=== PATIENT | female | born 1945 | race African-American/Black ===

== ENCOUNTER 2022-02-22 10:33 | Outpatient (CLI) | payer MEDICARE | END 2022-02-22 10:34 | disposition critical access hospital (66) | LOC: EMS 10:33 | DX: R41.82 Altered mental status, unspecified (principal); R11.2 Nausea with vomiting, unspecified; R42 Dizziness and giddiness; R53.83 Other fatigue | CPT/HCPCS: A0425; A0427 ==

== ENCOUNTER 2022-02-22 10:52 | Inpatient (IN) | payer MEDICARE ==
[2022-02-22] MEDS ORDERED: SODIUM CHLORIDE 0.9% 1,000 ML IV STA (11:07)
--- NOTE | 2022-02-22 12:11 | XRAY Report ---
PROCEDURE: Ribs Bilat w/Chest 4 View INDICATIONS: fall/extensive contusion, low sats TECHNIQUE: 4 views of the bilateral ribs were acquired, along with a single view chest. COMPARISON: None. FINDINGS: SUPPORT DEVICES: Left cardiac device is seen. LUNGS/PLEURA: Prominence of the interstitial markings with blunting of the costophrenic sulci. MEDIASTINUM: Enlargement of the cardiac silhouette, compatible cardiomegaly. Extensive mediastinal ca lcifications, which may reflect granulomatous change. BONES/SOFT TISSUES: No acute abnormality. Specifically, no acute, displaced rib fracture is appreciat ed. IMPRESSION: 1.Cardiomegaly with suggested pulmonary edema. 2.Extensive mediastinal calcifications, which may reflect granulomatous change. Reviewed by: Chris Rodriguez MD on 02/22/2022 12:10 PM PDT Approved by: Chris Rodriguez MD on 02/22/2022 12:10 PM PDT Station ID: [id number]
[2022-02-22 12:28] LABS: ABG HCO3 23.1 mmol/L (22.0-26.0); ABG PCO2 41 mmHg (34-45); ABG PH 7.37 (7.35-7.45); ABG PO2 88 mmHg (80-100); ABG TCO2 24.3 MMOL/L (21.0-29.0)
[2022-02-22 12:29] LABS: ABG OXYGEN SATURATION 96 % (94-98); ALLEN TEST POSITIVE
[2022-02-22 13:12] LABS: MUDS CUTOFF CONCENTRATIONS CUTOFF CONC BELOW:
[2022-02-22 13:13] LABS: BASOPHILS % (AUTO) 0.6 %; EOSINOPHILS # (AUTO) 0.1 10^3/uL (0.0-0.7); EOSINOPHILS % (AUTO) 0.7 %; HCT - HEMATOCRIT 27.7 % (37.0-47.0); HGB - HEMOGLOBIN 8.4 g/dL (12.0-16.0); LYMPHOCYTES # (AUTO) 1.3 10^3/uL (1.5-3.5); LYMPHOCYTES % (AUTO) 18.3 %; MEAN CORPUSCULAR HEMOGLOBIN 26.3 pg (27.0-31.0); MEAN CORPUSCULAR HGB CONC 30.3 g/dL (32.0-36.0); MEAN CORPUSCULAR VOLUME 86.8 fL (81.0-99.0); MEAN PLATELET VOLUME 10.6 fL (7.9-10.8); MONOCYTES # (AUTO) 0.6 10^3/uL (0.0-1.0); MONOCYTES % (AUTO) 7.7 %; NEUTROPHILS # (AUTO) 5.2 10^3/uL (1.5-6.6); NEUTROPHILS % (AUTO) 71.9 %; NRBC ABSOLUTE COUNT (AUTO) 0.03 x10^3/uL; NUCLEATED RED BLOOD CELLS AUTO 0.4 /100WBC; PLT - PLATELET COUNT 323 10^3/uL (130-450); RED BLOOD COUNT 3.19 10^6/uL (4.20-5.40); RED CELL DISTRIBUTION WIDTH 19.3 % (12.0-15.0); WHITE BLOOD COUNT 7.2 x10^3/uL (4.8-10.8)
[2022-02-22 13:25] LABS: BILIRUBIN,URINE NEGATIVE (NEGATIVE); GLUCOSE, URINE (UA) NEGATIVE (NEGATIVE); KETONES,URINE (UA) NEGATIVE (NEGATIVE); LEUKOCYTE ESTERASE, URINE TRACE (NEGATIVE); NITRITE,URINE NEGATIVE (NEGATIVE); OCCULT BLOOD,URINE NEGATIVE (NEGATIVE); PH,URINE 5.5 PH (5.0-7.5); PROTEIN,URINE 30 mg/dL (NEGATIVE); UROBILINOGEN,URINE 2 E.U./dL (NORMAL)
[2022-02-22 13:28] LABS: B. PARAPERTUSSIS- RESP PCR PAN NOT DETECTED; B. PERTUSSIS- RESP PCR PANEL NOT DETECTED; C. PNEUMONIAE- RESP PCR PANEL NOT DETECTED; CORONAVIRUS 229E-RESP PCR NOT DETECTED; CORONAVIRUS HKU1-RESP PCR NOT DETECTED; CORONAVIRUS NL63-RESP PCR NOT DETECTED; CORONAVIRUS OC43-RESP PCR NOT DETECTED; HUMAN METAPNEUMOVIRUS NOT DETECTED; INFLUENZA A- RESP PCR PANEL NOT DETECTED; INFLUENZA B - RESP PCR PANEL NOT DETECTED; M. PNEUMONIAE- RESP PCR PANEL NOT DETECTED; PARAINFLUENZA VIRUS 1 NOT DETECTED; PARAINFLUENZA VIRUS 2 NOT DETECTED; PARAINFLUENZA VIRUS 3 NOT DETECTED; PARAINFLUENZA VIRUS 4 NOT DETECTED; RHINOVIRUS/ENTEROVIRUS NOT DETECTED; RSV- RESP PCR PANEL NOT DETECTED; SARS-CoV-2 -RESP PCR PANEL NOT DETECTED
[2022-02-22 13:31] LABS: CLARITY,URINE CLEAR (CLEAR)
[2022-02-22 13:32] LABS: ALBUMIN 3.3 g/dL (3.2-5.5); ALBUMIN/GLOBULIN RATIO 0.9 (1.0-2.2); BILIRUBIN,TOTAL 2.3 mg/dL (0.2-1.0); CALCIUM 8.9 mg/dL (8.5-10.3); CREATININE 1.2 mg/dL (0.4-1.0); POTASSIUM 3.9 mmol/L (3.5-5.0); TOTAL PROTEIN 6.8 g/dL (6.7-8.2)
[2022-02-22 13:35] LABS: INR 1.1 (0.8-1.2); PT - PROTHROMBIN TIME 12.7 secs (9.9-12.6)
[2022-02-22] MEDS ORDERED: CLINDAMYCIN 900 MG/50 ML 50 ML IV ONE (13:35)
[2022-02-22 13:38] LABS: BACTERIA,URINE Many /HPF (None Seen); RBC,URINE 0-5 /HPF (0-5); SQUAMOUS EPITHELIAL CELL,UR RARE Squamous (<= Few)
[2022-02-22 13:39] LABS: AMPHETAMINE SCREEN,URINE NEGATIVE (NEGATIVE); BARBITURATE SCREEN,UR NEGATIVE (NEGATIVE); BENZODIAZEPINES SCREEN, URINE NEGATIVE (NEGATIVE); COCAINE SCREEN URINE NEGATIVE (NEGATIVE); METHADONE SCREEN, URINE NEGATIVE (NEGATIVE); METHAMPHETAMINES SCREEN, URINE NEGATIVE (NEGATIVE); OPIATE SCREEN, URINE NEGATIVE (NEGATIVE); OXYCODONE SCREEN, URINE NEGATIVE (NEGATIVE); PROPOXYPHENE SCREEN, URINE NEGATIVE (NEGATIVE); THC CANNABINOID SCREEN, URINE NEGATIVE (NEGATIVE); TRICYCLIC ANTIDEPRESSANT,URINE NEGATIVE (NEGATIVE)
[2022-02-22] MEDS ORDERED: FUROSEMIDE 40 MG/4 ML VIAL IVP STA (13:43)
--- NOTE | 2022-02-22 14:04 | ED Physician Documentation ---
PD HPI DYSPNEA - Stated complaint Stated Complaint: NAUSEA - Chief complaint Chief Complaint: Resp - History obtained from History obtained from: Patient - Additional information Additional information: The patient comes to the emergency department with chief complaint of dyspnea and nausea this morning and increasing lower extremity swelling for the last week. The patient's daughter states that this morning, the patient seems to be short of breath than usual and then became nauseated and vomited. She had no complaints of chest pain or abdominal pain. She has a history of CHF and obesity and is normally on supplemental oxygen at 2 L per nasal cannula [id number]. The daughter has been noticing that the patient's lower extremities, especially the right leg, seem to be more edematous than usual. The patient always has more swelling on the the right than the left. No fevers or chills. No cough. When the medics arrived, they found the patient's oxygen saturation to be in the low to mid 80s and they increased her oxygen from 2 L to 4. She has been satting in the low to mid 90s since. The patient denies current nausea and states she feels a little better in that regard, but is still short of breath. She reports feeling slightly anxious. There have been no recent medication changes. The patient is takes digoxin for her CHF but no diuretics. She is on several antihypertensives. No other complaints at this time. Review of Systems Ten Systems: 10 systems reviewed and negative Constitutional: reports: Reviewed and negative Eyes: reports: Reviewed and negative Ears: reports: Reviewed and negative Nose: reports: Reviewed and negative Throat: reports: Reviewed and negative Cardiac: reports: Reviewed and negative Respiratory: reports: Dyspnea GI: reports: Nausea, Vomiting : reports: Reviewed and negative Skin: reports: Reviewed and negative Musculoskeletal: reports: Reviewed and negative Neurologic: reports: Reviewed and negative Psychiatric: reports: Reviewed and negative Endocrine: reports: Reviewed and negative Immunocompromised: reports: Reviewed and negative PD PAST MEDICAL HISTORY - Past Medical History Past Medical History: Yes Cardiovascular: Congestive heart failure, Atrial fibrillation Respiratory: Asthma Endocrine/Autoimmune: Type 2 diabetes, HyPOthyroidism HEENT: None - Past Surgical History Past Surgical History: Yes Cardiovascular: Pacemaker - Present Medications Home Medications: Ambulatory Orders Medication Instructions Recorded Confirmed Aspirin [Winkler Aspirin] 02/22/22 Digoxin [Lanoxin] 125 mcg PO DAILY 02/22/22 Dulaglutide [Trulicity] 0.75 mg SUBQ Q7D 02/22/22 Hydralazine HCl 50 mg PO BID 02/22/22 Levothyroxine [Synthroid] 02/22/22 Lisinopril [Zestril] 02/22/22 Lovastatin 02/22/22 Pantoprazole [Protonix] 40 mg PO DAILY 02/22/22 diltiaZEM [Cardizem] 30 mg PO BID 02/22/22 - Allergies Allergies/Adverse Reactions: Allergies Allergy/AdvReac Type Severity Reaction Status Date / Time No Known Drug Allergies Allergy Verified 02/22/22 11:24 - Social History Does the pt smoke?: No Smoking Status: Never smoker PD ED PE NORMAL - Vitals Vital signs reviewed: Yes - General General: Alert and oriented X 3, No acute distress, Well developed/nourished - HEENT HEENT: Atraumatic, PERRL, EOMI, Moist mucous membranes - Neck Neck: Supple, no meningeal sign - Cardiac Cardiac: RRR, No murmur, Strong equal pulses - Respiratory Respiratory: Other (Mildly labored respirations. Mildly decreased air movement.) - Abdomen Abdomen: Soft, Non tender, Non distended - Derm Derm: Normal color, Warm and dry, No rash - Extremities Extremities: No deformity, Other (Moderate edema bilateral lower extremities, worse on right. Pitting.) - Neuro Neuro: Alert and oriented X 3 - Psych Psych: Normal mood, Normal affect Results - Vitals Vitals: Vital Signs - 24 hr 02/22/22 02/22/22 02/22/22 11:00 11:08 12:03 Temperature 36.9 C Heart Rate 79 90 98 Respiratory 12 17 Rate Blood Pressure 189/89 H 218/95 H O2 Saturation 88 L 100 100 02/22/22 02/22/22 02/22/22 12:14 14:07 14:30 Temperature Heart Rate 89 89 Respiratory 19 18 Rate Blood Pressure 195/94 H 209/93 H 208/108 H O2 Saturation 100 98 02/22/22 02/22/22 02/22/22 15:00 15:30 15:54 Temperature Heart Rate 89 89 Respiratory 18 15 Rate Blood Pressure 224/122 H O2 Saturation 97 99 86 L 02/22/22 16:00 Temperature Heart Rate 89 Respiratory 23 Rate Blood Pressure 191/100 H O2 Saturation 97 Oxygen O2 Source Nasal cannula Oxygen Flow Rate 4 - EKG (time done) 1057 Rate: Rate (enter#) (89) Rhythm: NSR Rupert: Normal Intervals: Normal MA QRS: Normal Ischemia: Normal ST segments Compare to prior EKG: Old EKG unavailable Computer interpretation: Disagree with computer (Distinct P waves visualized in the V1. Low voltage P waves also visualized in lead I. MD interpretation normal sinus rhythm, not junctional rhythm) - Labs Labs: Laboratory Tests 02/22/22 02/22/22 02/22/22 11:48 12:15 12:22 WBC RBC Hgb Hct MCV MCH MCHC RDW Plt Count MPV Neut # (Auto) Lymph # (Auto) Bent # (Auto) Eos # (Auto) Baso # (Auto) Absolute Nucleated RBC Nucleated RBC % PT INR Bld Gas Analysis Time 1225 Sample Site RIGHT RADIAL ABG pH 7.37 ABG pCO2 41 ABG pO2 88 ABG HCO3 23.1 ABG Total CO2 24.3 ABG O2 Saturation 96 ABG Base Excess -2.0 Néstor Test POSITIVE Room Air YES Sodium Potassium Chloride Carbon Dioxide Anion Gap BUN Creatinine Estimated GFR (MDRD) Glucose Lactic Acid 1.2 Calcium Total Bilirubin AST ALT Alkaline Phosphatase Troponin I High Sens B-Natriuretic Peptide Total Protein Albumin Globulin Albumin/Globulin Ratio Lipase Urine Color Urine Clarity Urine pH Ur Specific [place] Urine Protein Urine Glucose (UA) Urine Ketones Urine Occult Blood Urine Nitrite Urine Bilirubin Urine Urobilinogen Ur Leukocyte Esterase Urine RBC Urine WBC Ur Squamous Epith Cells Urine Bacteria Ur Microscopic Review Urine Culture Comments Nasal Adenovirus (PCR) NOT DETECTED Nasal B. parapertussis DNA (PCR) NOT DETECTED Nasal Coronavir 229E PCR NOT DETECTED Nasal Coronavir HKU1 PCR NOT DETECTED Nasal Coronavir NL63 PCR NOT DETECTED Nasal Coronavir OC43 PCR NOT DETECTED Nasal Enterovir/Rhinovir PCR NOT DETECTED Nasal Influenza B PCR NOT DETECTED Nasal Influenza A PCR NOT DETECTED Nasal Parainfluen 1 PCR NOT DETECTED Nasal Parainfluen 2 PCR NOT DETECTED Nasal Parainfluen 3 PCR NOT DETECTED Nasal Parainfluen 4 PCR NOT DETECTED Nasal RSV (PCR) NOT DETECTED Nasal B.pertussis DNA PCR NOT DETECTED Nasal C.pneumoniae (PCR) NOT DETECTED Benito Human Metapneumo PCR NOT DETECTED Nasal M.pneumoniae (PCR) NOT DETECTED Nasal SARS-CoV-2 (PCR) NOT DETECTED Last Dose Date Last Dose Time Digoxin Urine Opiates Screen Ur Oxycodone Screen Urine Methadone Screen Ur Propoxyphene Screen Ur Barbiturates Screen Ur Tricyclics Screen Ur Phencyclidine Scrn Ur Amphetamine Screen U Methamphetamines Scrn U Benzodiazepines Scrn Urine Cocaine Screen U Cannabinoids Screen 02/22/22 02/22/22 02/22/22 12:51 12:51 12:51 WBC 7.2 RBC 3.19 L Hgb 8.4 L Hct 27.7 L MCV 86.8 MCH 26.3 L MCHC 30.3 L RDW 19.3 H Plt Count 323 MPV 10.6 Neut # (Auto) 5.2 Lymph # (Auto) 1.3 L Bent # (Auto) 0.6 Eos # (Auto) 0.1 Baso # (Auto) 0.0 Absolute Nucleated RBC 0.03 Nucleated RBC % 0.4 PT INR Bld Gas Analysis Time Sample Site ABG pH ABG pCO2 ABG pO2 ABG HCO3 ABG Total CO2 ABG O2 Saturation ABG Base Excess Néstor Test Room Air Sodium 139 Potassium 3.9 Chloride 105 Carbon Dioxide 24 Anion Gap 10.0 BUN 26 H Creatinine 1.2 H Estimated GFR (MDRD) 53 L Glucose 180 H Lactic Acid Calcium 8.9 Total Bilirubin 2.3 H AST 15 ALT 14 Alkaline Phosphatase 119 Troponin I High Sens 22.0 H* B-Natriuretic Peptide Total Protein 6.8 Albumin 3.3 Globulin 3.5 Albumin/Globulin Ratio 0.9 L Lipase 53 H Urine Color Urine Clarity Urine pH Ur Specific [place] Urine Protein Urine Glucose (UA) Urine Ketones Urine Occult Blood Urine Nitrite Urine Bilirubin Urine Urobilinogen Ur Leukocyte Esterase Urine RBC Urine WBC Ur Squamous Epith Cells Urine Bacteria Ur Microscopic Review Urine Culture Comments Nasal Adenovirus (PCR) Nasal B. parapertussis DNA (PCR) Nasal Coronavir 229E PCR Nasal Coronavir HKU1 PCR Nasal Coronavir NL63 PCR Nasal Coronavir OC43 PCR Nasal Enterovir/Rhinovir PCR Nasal Influenza B PCR Nasal Influenza A PCR Nasal Parainfluen 1 PCR Nasal Parainfluen 2 PCR Nasal Parainfluen 3 PCR Nasal Parainfluen 4 PCR Nasal RSV (PCR) Nasal B.pertussis DNA PCR Nasal C.pneumoniae (PCR) Benito Human Metapneumo PCR Nasal M.pneumoniae (PCR) Nasal SARS-CoV-2 (PCR) Last Dose Date Last Dose Time Digoxin Urine Opiates Screen Ur Oxycodone Screen Urine Methadone Screen Ur Propoxyphene Screen Ur Barbiturates Screen Ur Tricyclics Screen Ur Phencyclidine Scrn Ur Amphetamine Screen U Methamphetamines Scrn U Benzodiazepines Scrn Urine Cocaine Screen U Cannabinoids Screen 02/22/22 02/22/22 02/22/22 12:51 12:51 12:51 WBC RBC Hgb Hct MCV MCH MCHC RDW Plt Count MPV Neut # (Auto) Lymph # (Auto) Bent # (Auto) Eos # (Auto) Baso # (Auto) Absolute Nucleated RBC Nucleated RBC % PT 12.7 H INR 1.1 Bld Gas Analysis Time Sample Site ABG pH ABG pCO2 ABG pO2 ABG HCO3 ABG Total CO2 ABG O2 Saturation ABG Base Excess Néstor Test Room Air Sodium Potassium Chloride Carbon Dioxide Anion Gap BUN Creatinine Estimated GFR (MDRD) Glucose Lactic Acid Calcium Total Bilirubin AST ALT Alkaline Phosphatase Troponin I High Sens B-Natriuretic Peptide 1376 H Total Protein Albumin Globulin Albumin/Globulin Ratio Lipase Urine Color Urine Clarity Urine pH Ur Specific [place] Urine Protein Urine Glucose (UA) Urine Ketones Urine Occult Blood Urine Nitrite Urine Bilirubin Urine Urobilinogen Ur Leukocyte Esterase Urine RBC Urine WBC Ur Squamous Epith Cells Urine Bacteria Ur Microscopic Review Urine Culture Comments Nasal Adenovirus (PCR) Nasal B. parapertussis DNA (PCR) Nasal Coronavir 229E PCR Nasal Coronavir HKU1 PCR Nasal Coronavir NL63 PCR Nasal Coronavir OC43 PCR Nasal Enterovir/Rhinovir PCR Nasal Influenza B PCR Nasal Influenza A PCR Nasal Parainfluen 1 PCR Nasal Parainfluen 2 PCR Nasal Parainfluen 3 PCR Nasal Parainfluen 4 PCR Nasal RSV (PCR) Nasal B.pertussis DNA PCR Nasal C.pneumoniae (PCR) Benito Human Metapneumo PCR Nasal M.pneumoniae (PCR) Nasal SARS-CoV-2 (PCR) Last Dose Date UNKNOWN Last Dose Time UNKNOWN Digoxin 0.9 Urine Opiates Screen Ur Oxycodone Screen Urine Methadone Screen Ur Propoxyphene Screen Ur Barbiturates Screen Ur Tricyclics Screen Ur Phencyclidine Scrn Ur Amphetamine Screen U Methamphetamines Scrn U Benzodiazepines Scrn Urine Cocaine Screen U Cannabinoids Screen 02/22/22 13:06 WBC RBC Hgb Hct MCV MCH MCHC RDW Plt Count MPV Neut # (Auto) Lymph # (Auto) Bent # (Auto) Eos # (Auto) Baso # (Auto) Absolute Nucleated RBC Nucleated RBC % PT INR Bld Gas Analysis Time Sample Site ABG pH ABG pCO2 ABG pO2 ABG HCO3 ABG Total CO2 ABG O2 Saturation ABG Base Excess Néstor Test Room Air Sodium Potassium Chloride Carbon Dioxide Anion Gap BUN Creatinine Estimated GFR (MDRD) Glucose Lactic Acid Calcium Total Bilirubin AST ALT Alkaline Phosphatase Troponin I High Sens B-Natriuretic Peptide Total Protein Albumin Globulin Albumin/Globulin Ratio Lipase Urine Color YELLOW Urine Clarity CLEAR Urine pH 5.5 Ur Specific [place] >=1.030 H Urine Protein 30 H Urine Glucose (UA) NEGATIVE Urine Ketones NEGATIVE Urine Occult Blood NEGATIVE Urine Nitrite NEGATIVE Urine Bilirubin NEGATIVE Urine Urobilinogen 2 H Ur Leukocyte Esterase TRACE H Urine RBC 0-5 Urine WBC 6-10 H Ur Squamous Epith Cells RARE Squamous Urine Bacteria Many H Ur Microscopic Review INDICATED Urine Culture Comments INDICATED Nasal Adenovirus (PCR) Nasal B. parapertussis DNA (PCR) Nasal Coronavir 229E PCR Nasal Coronavir HKU1 PCR Nasal Coronavir NL63 PCR Nasal Coronavir OC43 PCR Nasal Enterovir/Rhinovir PCR Nasal Influenza B PCR Nasal Influenza A PCR Nasal Parainfluen 1 PCR Nasal Parainfluen 2 PCR Nasal Parainfluen 3 PCR Nasal Parainfluen 4 PCR Nasal RSV (PCR) Nasal B.pertussis DNA PCR Nasal C.pneumoniae (PCR) Benito Human Metapneumo PCR Nasal M.pneumoniae (PCR) Nasal SARS-CoV-2 (PCR) Last Dose Date Last Dose Time Digoxin Urine Opiates Screen NEGATIVE Ur Oxycodone Screen NEGATIVE Urine Methadone Screen NEGATIVE Ur Propoxyphene Screen NEGATIVE Ur Barbiturates Screen NEGATIVE Ur Tricyclics Screen NEGATIVE Ur Phencyclidine Scrn NEGATIVE Ur Amphetamine Screen NEGATIVE U Methamphetamines Scrn NEGATIVE U Benzodiazepines Scrn NEGATIVE Urine Cocaine Screen NEGATIVE U Cannabinoids Screen NEGATIVE - Rads (name of study) Chest x-ray Radiology: Final report received, EMP read indepedently, See rad report (CHF) PD MEDICAL DECISION MAKING - ED course Complexity details: reviewed results, re-evaluated patient, considered differential, d/w patient ED course: The patient was worked up with labs, which showed an elevated BNP at 1300 with a minimally elevated troponin of 22. Her chest x-ray showed CHF. The patient was given 40 mg of Lasix IV. She was continued on 4 L of oxygen nasal cannula. She had put out approximately a 500 cc of urine after the Lasix and I did recheck her O2 saturation on just 2 L and it was found to be 86% with a good waveform. Spoke with Dr. Marino, who agreed to admit the patient to her service for CHF exacerbation. Departure - Departure Disposition: [facility] DC/Xfer Clinical Impression: Acute exacerbation of CHF (congestive heart failure) Qualifiers: Heart failure type: unspecified Qualified Code(s): I50.9 - Heart failure, unspecified Condition: Serious
[2022-02-22] MEDS ORDERED: ASPIRIN 325 MG TABLET PO STA (15:15)
[2022-02-22] MEDS ORDERED: LEVOTHYROXINE 125 MCG TABLET PO STA (15:15)
[2022-02-22] MEDS ORDERED: DIGOXIN 125 MCG TABLET PO STA (15:15)
[2022-02-22] MEDS ORDERED: lisinopriL 5 MG TABLET PO STA (15:18)
[2022-02-22] MEDS ORDERED: hydrALAZINE 25 MG TABLET PO STA (15:19)
[2022-02-22] MEDS ORDERED: LORazepam 2 MG/ML VIAL IVP STA (15:19)
[2022-02-22] MEDS ORDERED: diltiaZEM CD 120 MG CAPSULE PO STA (15:19)
[2022-02-22 15:32] LABS: DIGOXIN 0.9 ng/mL
[2022-02-22] MEDS ORDERED: ONDANSETRON 4 MG/2 ML VIAL IVP PRN (16:08)
[2022-02-22] MEDS ORDERED: oxyCODONE 5 MG TABLET PO PRN (16:08)
[2022-02-22] MEDS ORDERED: IBUPROFEN 400 MG TABLET PO PRN (16:08)
[2022-02-22] MEDS ORDERED: ONDANSETRON ODT 4 MG TABLET TL PRN (16:08)
--- NOTE | 2022-02-22 16:12 | HISTORY & PHYSICAL EXAMINATION ---
Chief Complaint - Chief Complaint Chief Complaint: leg weakness and shortness of breath History of Present Illness - Admitted From Admitted From:: home - History Obtained From Records Reviewed: [facility] History obtained from: Dr. russo Exam Limitations: none - History of Present Illness HPI Comment/Other: The patient was brought in by EMS after family called due to concerns regarding lethargy and sleepiness. She had fallen Tuesday but did not hit her head. She had some bruising on her chest and her back. She is gotten sleepier, not wanting to eat, and today she was so lethargic she did not want to get up out of bed. She was complaining of dizziness. She is on chronic oxygen at home at 2 L/min. Ambulance was called and found her room air sats to be 89%. She was placed on her oxygen and was 96%. But when she got to the emergency room she was on 4 L nasal cannula. She was also actively vomiting yellow bilious fluid. Blood pressure was 189/89. Room air sat was 88%. Respirations 12. Heart rate 79. Temperature 36.9.In the emergency room she was treated with Lasix, hydralazine, lisinopril 40 mg p.o., and given some of her home meds which included lisinopril, diltiazem and digoxin. The emergency room provider felt that the patient was in congestive heart failure and she was given 40 mg of Lasix. Continued on 4 L of oxygen. She put out 500 cc of urine. With that they checked her on 2 L of oxygen and found her to be 86%. As such they put her back up to 4 L. I was asked to admit the patient for congestive heart failure. After she left the emergency room and came to the floor the patient was frankly obtunded, unresponsive. She had received a half a milligram of Ativan in the ER for "a little bit of anxiety". I had to put the patient immediately on BiPAP, and give her an inch of Nitropaste, and 10 mg of hydralazine for systolic of 210. I then spent 30 minutes in direct patient critical care at the bedside Have reached out to her mirror machine feeder. She used to live in the [facility] and only moved to [facility] in July 2021. In June 2021 she was hospitalized at [facility]. Her mirror machine feeder is Dr. Alicea at phone number [phone]. Her daughter states that she was hospitalized there because she had water on her lungs that needed to be removed with Lasix. Since moving here, the daughter states that the patient was probably compliant with medications but she cannot be sure. Mom is been going downhill for about a year or two. Her 2 years ago and she couldn't live alone so a daughter moved in with her to look out for her. About 1 year ago, one of her daughters had to start helping her taking a bath because her legs were too weak to lift up and bathe herself. Other than needing help to get bathe, mom was able to dress herself and feed herself. She has not been driving for several years. She relies on her family to take her places. Since moving to [place] from [place], she has become basically homebound. It is too difficult to get her up and down stairs so she never leaves the house/apartment. As far as the daughter knows, mom is taking her medications as instructed.There may been some dietary indiscretion. The history of why she fell is vague. History - Past Medical History Cardiovascular: reports: Congestive heart failure, Atrial fibrillation (with a pacer) Respiratory: reports: Asthma Neuro: reports: None Endocrine/Autoimmune: reports: Type 2 diabetes, HyPOthyroidism [employer]AT[employer]ER: reports: Other () : reports: None HEENT: reports: None Psych: reports: Anxiety Musculoskeletal: reports: Osteoarthritis MRSA Hx?: No - Past Surgical History Cardiovascular: reports: Pacemaker - Family & Social History Family History Comment/Other: Mom at 85 of unknown cancer. Dad of old age. Again not clear what he of, possibly cancer. 3 brothers and sisters. She also had 3 or 4/2 siblings. There is cancer in both sides of that side of the family but unknown type of cancer. There is also high blood pressure. De mentia. 4 children. High blood pressure and some of them. One son is developing early dementia. 1 son about a week ago. Not clear what he of and it may have been metastatic melanoma. Living arrangement: At home Living Situation: With family Social History Notes: She was born in [place]. Ended up living in the [place] area for many decades after getting . She raised 4 children there. Her 2 years ago. She did used to smoke, but stopped smoking over 40 years ago. She has no history of alcohol abuse. Rarely drinks. She has no history of recreational substance abuse. Currently living with one of her daughters. The daughter was living in [place] with the rest of the family. However that daughter came here to [facility] to be closer to one of her children who was in the [place]. She brought her mother, the patient, with her. They have been living here since July 2021. They have seen the primary care provider, Dr. Andrade, only once. - Substance History Use: Uses substance without health or social issues: NONE Abuse: Recurrent use of substance despite neg consequences: NONE Dependence: Experiences withdrawal or developed tolerances: NONE - POLST Patient has POLST: No POLST Status: Full Code Meds/Allgy - Home Medications Home Medications: Ambulatory Orders Medication Instructions Recorded Confirmed Aspirin [Page Aspirin] 81 mg PO DAILY 02/22/22 02/22/22 Digoxin [Lanoxin] 125 mcg PO DAILY 02/22/22 02/22/22 Dulaglutide [Trulicity] 0.75 mg SUBQ WE 02/22/22 02/22/22 Hydralazine HCl 50 mg PO BID 02/22/22 02/22/22 Levothyroxine [Synthroid] 125 mcg PO QDAC 02/22/22 02/22/22 Lisinopril [Zestril] 40 mg PO BID 02/22/22 02/22/22 Lovastatin 40 mg PO QPM 02/22/22 02/22/22 Metoprolol Succinate [Toprol Xl] 50 mg PO BID 02/22/22 02/22/22 Pantoprazole [Protonix] 40 mg PO DAILY 02/22/22 02/22/22 diltiaZEM [Cardizem] 60 mg PO DAILY 02/22/22 02/22/22 - Allergies Allergies/Adverse Reactions: Allergies Allergy/AdvReac Type Severity Reaction Status Date / Time No Known Drug Allergies Allergy Verified 02/22/22 11:24 Review of Systems - Other Findings Other Findings: This patient is completely obtunded. She can open her eyes to loud voice but is unresponsive. Sluggish, extremely lethargic. Prior Level of Functionality: Able to dress herself, feed herself, but needs help with bathing. Occasionally uses a walker or a cane Exam - Vital Signs Reviewed Vital Signs: Yes Vital Signs: Vital Signs x48h Temp Pulse Resp BP Pulse Ox 02/22/22 16:00 89 23 191/100 H 97 02/22/22 15:54 86 L 02/22/22 15:30 89 15 99 02/22/22 15:00 89 18 224/122 H 97 02/22/22 14:30 89 18 208/108 H 98 02/22/22 14:07 89 19 209/93 H 100 02/22/22 12:14 195/94 H 02/22/22 12:03 98 17 218/95 H 100 02/22/22 11:08 90 100 02/22/22 11:00 36.9 C 79 12 189/89 H 88 L - Physical Exam General Appearance: positive: Other (Morbidly obese at 112 kg, 5 foot 6 inches tall, elderly black female with protuberant eyes even when closed, responsive to sternal rub and to her daughter yelling her name.) Eyes Bilateral: positive: PERRL, EOMI ENT: positive: Dry mucous membranes Neck: positive: No JVD. negative: Stiff neck Respiratory: positive: No respiratory distress, Other (Shallow, unlabored breathing, spells of apnea). negative: Wheezes, Rales, Rhonchi Cardiovascular: positive: Regular rate & rhythm, Systolic murmur, Other (The entire front of her chest across both breast are deeply bruised. Left upper chest wall has a 4 and half centimeter square area subcutaneous that I believe is her pacer.). negative: Gallop/S4 Abdomen: positive: Non-tender, No organomegaly, Nml bowel sounds, No distention. negative: Guarding, Rebound Skin: positive: Warm, Dry Extremities: positive: Full ROM, Pedal edema Neurologic/Psychiatric: positive: CN's nml (2-12) (Spontaneous grimacing of pain with sternal rub. Can hear her daughter call her name and opens eyes. Moves her hands to grasp mine and move them away.), Motor nml, Disoriented to person, Disoriented to place, Disoriented to time Conclusion/Plan - Problem List (1) Acute respiratory failure with hypoxia and hypercapnia Conclusion/Plan: That is my initial assumption in this patient. I am placing her in ICU, starting her on BiPAP, and getting a blood gas in the next 15 minutes. Respirat ory therapy did not want to get a blood gas before putting her on BiPAP. She may have obesity hypoventilation syndrome, obstructive sleep apnea. Daughter says that she does have a sleep mask at home. After I check blood gas, I will adjust her vent settings. Some of her respiratory failure may also be due to hypoxia from congestive heart failure due to severely elevated blood pressures. I will be treating that problem as well. I have rechecked her mirror machine feeder. I have also asked that we get records from [facility]. I like to review her records from June 2021 (2) Acute exacerbation of CHF (congestive heart failure) Conclusion/Plan: Unknown ejection fraction status. I have reached out to her mirror machine feeder. Product Safety Specialist says he was can go to the office read up on her records and then get them to me. I expect a phone call the next 15 or 20 minutes. Qualifiers: Heart failure type: unspecified Qualified Code(s): I50.9 - Heart failure, unspecified (3) Hypertensive urgency Conclusion/Plan: Could this patient have PRES. But the only manifestation is that of altered mental status. Daughter did not describe changes in vision. She is not having seizures. She was not complaining of headache. I am giving her hydralazine, already received 40 mg of Lasix. In the ER creatinine was 1.2. May use labetalol prn or nipride drip next. if she doesn't respond in next 30 minutes. (4) CHELITA (obstructive sleep apnea) Conclusion/Plan: And all of the discussion with the emergency room doctor, and the patient's daughter who provided the history, there is no history of obstructive sleep apnea. That only came up when I explained to the daughter that I was going to be transferring her mom to the ICU and putting a mask on her face. The daughter then asked "is out of CPAP". When I asked her how she knew about that, she states that mom has that mask at home. Some if not most of her lethargy can be from hypercapnia and as such I will check her blood gas after BiPAP for 30 minutes. (5) Type 2 diabetes mellitus, without long-term current use of insulin Conclusion/Plan: This patient takes Trulicity for her diabetes. At this time that will be held. We will check A1c, start on sliding scale insulin n.p.o. status. Qualifiers: Diabetes mellitus complication status: without complication Qualified Code(s): E11.9 - Type 2 diabetes mellitus without complications (6) Contusion, chest wall Conclusion/Plan: Daughter reports that mom was reaching for some wipes on a top shelf in a closet. The fall was unwitnessed. She must of fallen forward onto the floor. But the face was uninvolved, wrist were uninvolved, it was all chest wall and along her back contusion. Although I think her encephalopathy is from hypercapnia, I am concerned about subdural bleeding. When she stabilized from a respiratory perspective she will need a CT of the head. Qualifiers: Encounter type: initial encounter (7) History of atrial flutter Conclusion/Plan: Her mirror machine feeder was able to finally call me back and tell me that he first met her in the preop setting where she was in a flutter in PACU for a knee surgery. 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 Her ejection fraction is normal. On his note from June 24, 2021 he only has her on diltiazem. He does not understand how she got started on digoxin and diltiazem and metoprolol. He says he did not take care of her for a hospitalization in June 2021. And when I tried to get records from [facility], they say that they do not have Ms. Tomlin there other than for blood draws. The patient is in a junctional rhythm. Pacer spikes have kicked in. But it is helpful to know that she had a normal ejection fraction. (8) Anemia Conclusion/Plan: The daughter states that mom is not known for having anemia. She cannot really remember this. We will do anemia work-up for her. She is not anemic enough to need blood transfusion at this time. Qualifiers: Anemia type: unspecified type Qualified Code(s): D64.9 - Anemia, unspecified - Lab Results Lab results reviewed: Yes Fish Bones: 02/22/22 12:51 02/22/22 12:51
[2022-02-22] MEDS: SODIUM CHLORIDE FLUSH 0.9% 10 ML SYRINGE IVP SCH (18:05)
[2022-02-22] MEDS ORDERED: hydrALAZINE INJ 20 MG/ML VIAL ONE (18:15)
[2022-02-22] MEDS ORDERED: hydrALAZINE INJ 20 MG/ML VIAL IVP ONE (18:24)
[2022-02-22] MEDS ORDERED: NITROGLYCERIN 2% PASTE TOP ONE (18:24)
--- NOTE | 2022-02-22 18:32 | PHARMACY PROGRESS NOTE ---
- Best Possible Medication History Admit Date and Time: 02/22/22 1608 Processed by: Pharmacy Medication History completed: Yes Patient Interview: Pt unable to participate Secondary Source(s): Written medication list, Other family member, Pharmacy r ecords, Insurance records As the person ultimately responsible for medication therapy, providers are able to order a medication from an existing home medication list in [facility] via the "Reconcile Routine" prior to Confirmation of that medication by support teacher. Such practice is discouraged except when the physician, in their clinical judgment, deems that a medical need exists for a medication without regard to previous use.
[2022-02-22 18:53] LABS: ABG BASE EXCESS -0.1 mmol/L (-2.0-3.0); ABG HCO3 25.5 mmol/L (22.0-26.0); ABG OXYGEN SATURATION 89 % (94-98); ABG PCO2 46 mmHg (34-45); ABG PH 7.36 (7.35-7.45); ABG PO2 61 mmHg (80-100); ABG TCO2 26.9 MMOL/L (21.0-29.0)
[2022-02-22 18:54] LABS: ALLEN TEST POSITIVE
[2022-02-22] MEDS ORDERED: INSULIN REGULAR HUMAN 300 UNIT/3 ML VIAL SUBQ SCH (19:00)
[2022-02-22 21:27] LABS: ABSOLUTE RETICS # AUTO 0.144 10^6/uL (0.020-0.110); RED BLOOD COUNT 3.29 10^6/uL (4.20-5.40); RETICULOCYTE COUNT % (AUTO) 4.38 % (0.5-2.3)
--- NOTE | 2022-02-22 21:34 | CT Report ---
PROCEDURE: HEAD WO INDICATIONS: fall 4/ now w lethargy, dec LOC TECHNIQUE: Noncontrast 4.5 mm thick angled axial sections acquired from the foramen magnum to the vertex. For r adiation dose reduction, the following was used: automated exposure control, adjustment of mA and/or kV according to patient size. COMPARISON: None. FINDINGS: Image quality: There is motion artifact slightly limiting evaluation. CSF spaces: There is mild cerebral volume loss with prominence of the ventricles and sulci. Basal ci sterns are patent. No extra-axial fluid collections. Brain: No intracranial hemorrhage, mass, or mass effect. Donato-white matter interface is preserved. T here are subcortical and periventricular white matter hypodensities consistent with mild chronic smal l vessel ischemic changes. Skull and face: Calvarium and visualized facial bones are intact, without suspicious lesions. Sinuses: Visualized sinuses and mastoids are clear. IMPRESSION: 11. No acute intracranial abnormality. 2. Mild chronic white matter small vessel ischemic changes and cerebral volume loss. Reviewed by: Arturo Maria MD on 02/22/2022 9:32 PM PDT Approved by: Arturo Maria MD on 02/22/2022 9:32 PM PDT Station ID: [id number]
[2022-02-22 21:57] LABS: % IRON SATURATION 10 % (20-50); IRON 39 ug/dL (28-170); TOTAL IRON BINDING CAPACITY 379 ug/dL (250-450); TRANSFERRIN 271 mg/dL (192-382)
[2022-02-23 05:07] LABS: ABG BASE EXCESS 0.4 mmol/L (-2.0-3.0); ABG HCO3 25.6 mmol/L (22.0-26.0); ABG OXYGEN SATURATION 94 % (94-98); ABG PCO2 44 mmHg (34-45); ABG PH 7.39 (7.35-7.45); ABG PO2 76 mmHg (80-100); ABG TCO2 26.9 MMOL/L (21.0-29.0); ALLEN TEST POSITIVE
[2022-02-23 05:08] LABS: ABG RESPIRATORY RATE 16 b/min
[2022-02-23 06:11] LABS: BASOPHILS % (AUTO) 0.6 %; EOSINOPHILS # (AUTO) 0.1 10^3/uL (0.0-0.7); EOSINOPHILS % (AUTO) 1.1 %; HCT - HEMATOCRIT 26.9 % (37.0-47.0); HGB - HEMOGLOBIN 8.2 g/dL (12.0-16.0); LYMPHOCYTES # (AUTO) 0.9 10^3/uL (1.5-3.5); LYMPHOCYTES % (AUTO) 12.1 %; MEAN CORPUSCULAR HEMOGLOBIN 26.6 pg (27.0-31.0); MEAN CORPUSCULAR HGB CONC 30.5 g/dL (32.0-36.0); MEAN CORPUSCULAR VOLUME 87.3 fL (81.0-99.0); MEAN PLATELET VOLUME 9.9 fL (7.9-10.8); MONOCYTES # (AUTO) 0.5 10^3/uL (0.0-1.0); MONOCYTES % (AUTO) 7.3 %; NEUTROPHILS # (AUTO) 5.5 10^3/uL (1.5-6.6); NEUTROPHILS % (AUTO) 78.3 %; NRBC ABSOLUTE COUNT (AUTO) 0.03 x10^3/uL; NUCLEATED RED BLOOD CELLS AUTO 0.4 /100WBC; PLT - PLATELET COUNT 312 10^3/uL (130-450); RED BLOOD COUNT 3.08 10^6/uL (4.20-5.40); RED CELL DISTRIBUTION WIDTH 19.1 % (12.0-15.0); WHITE BLOOD COUNT 7.1 x10^3/uL (4.8-10.8)
[2022-02-23 06:21] LABS: CALCIUM 8.8 mg/dL (8.5-10.3); CREATININE 1.1 mg/dL (0.4-1.0); POTASSIUM 3.7 mmol/L (3.5-5.0)
[2022-02-23] MEDS: SODIUM CHLORIDE FLUSH 0.9% 10 ML SYRINGE IVP SCH ×4 (06:33→18:30)
[2022-02-23] MEDS ORDERED: INSULIN REGULAR HUMAN 300 UNIT/3 ML VIAL SUBQ SCH (07:00)
--- NOTE | 2022-02-23 08:45 | PROVIDER PROGRESS NOTE ---
Assessment/Plan - Problem List (1) Acute exacerbation of CHF (congestive heart failure) Qualifiers: Heart failure type: unspecified Qualified Code(s): I50.9 - Heart failure, unspecified Assessment/Plan: Patient is currently on the BiPAP. Lasix 40 mg IV twice daily ordered. Metoprolol tartrate 5 mg IV every 6 hours scheduled. BNP was 1146. Will monitor daily. Strict I's and O's. Cannot obtain a 2D echocardiogram because is currently unavailable at our facility Initial troponin was 22 with repeat troponin of 32. When patient is able to tolerate p.o., will resume patient's oral medications. These include: Digoxin 125 mcg p.o. daily Metoprolol succinate 50 mg p.o. twice daily Lisinopril 40 mg p.o. twice daily (2) Acute respiratory failure with hypoxia and hypercapnia Assessment/Plan: Multifactorial secondary to CHF exacerbation and obstructive sleep apnea. Patient is currently on a BiPAP. Will wean as tolerated. CHF exacerbation being treated as outlined above. (3) Hypertension Assessment/Plan: At time of admission patient's systolic blood pressure was 219. This has since improved. Systolic blood pressure currently fluctuates between 120s and 150s. On metoprolol 5 mg IV every 6 hours scheduled. On hydralazine 10 mg IV every 4 hours as needed for systolic blood pressure greater than 160. On Lasix 40 mg IV twice daily. When patient is able to tolerate oral medications will resume lisinopril, diltiazem and metoprolol succinate. (4) Contusion, chest wall Qualifiers: Encounter type: initial encounter Assessment/Plan: It was an unwitnessed fall. She has extensive bruising across her chest/breast area as a result. CT head done 02/22/2022 showed no acute intracranial abnormality. Chest and rib x-ray showed cardiomegaly with suggested pulmonary edema. Extensive mediastinal calcifications which may reflect granulomatous change No rib fractures were noticed. Ultrasound of the left breast ordered due to firmness on palpation. (5) History of atrial flutter Assessment/Plan: Currently rate controlled. Currently on metoprolol tartrate 5 mg every 6 hours scheduled. When patient is able to tolerate oral medications will resume her home medications. This include metoprolol succinate 50 mg p.o. twice daily, diltiazem 60 mg p.o. daily and digoxin 125 mcg p.o. daily. On a baby aspirin daily. (6) CHELITA (obstructive sleep apnea) Assessment/Plan: Patient uses a CPAP at night. Currently on the BiPAP. (7) Type 2 diabetes mellitus, without long-term current use of insulin Qualifiers: Diabetes mellitus complication status: without complication Qualified Code(s): E11.9 - Type 2 diabetes mellitus without complications Assessment/Plan: Accu-Cheks before every meal at bedtime. Sliding scale insulin. We will check hemoglobin A1c in the morning. (8) Hematoma of left breast Assessment/Plan: Secondary to contusion following fall at home. It was an unwitnessed fall. Ultrasound of the breast done this morning showed a hematoma measuring 11.2 x 5.7 x 11 cm. Hemoglobin this morning was 8.2. Will repeat hemoglobin in the afternoon and address accordingly. Lovenox for DVT prophylaxis discontinued. (9) Anemia Qualifiers: Anemia type: unspecified type Qualified Code(s): D64.9 - Anemia, un specified Assessment/Plan: Globin was 8.2. Patient has a large left breast hematoma following fall at home. We will monitor H&H closely. (10) Hypothyroidism Assessment/Plan: On Synthroid 125 mcg p.o. daily AC (12) GERD (gastroesophageal reflux disease) Assessment/Plan: Protonix 40 mg p.o. daily AC. - Current Meds Current Meds: Current Medications Generic Name Dose Route Start Last Admin Trade Name Freq PRN Reason Stop Dose Admin Sodium Chloride 10 ml 02/22/22 17:00 02/23/22 06:33 Sodium Chloride Flush 0.9% 10 Ml Syringe IVP 10 ml 0100,0900,1700 [facility] Administration - Lab Result Fish Bone Diagrams: 02/23/22 05:55 02/23/22 05:55 - Additional Planning My Orders: My Active Orders 02/23/22 09:00 Aspirin Chewable [[facility] [place] Aspirin] 81 mg PO DAILY Digoxin [Lanoxin] 125 mcg PO DAILY FUROSEMIDE INJ 40mg VIAL [LASIX INJ 40 mg VIAL] 40 mg IVP BIDDIURETIC Hydralazine HCl [Hydralazine HCl] 50 mg PO BID Lisinopril [Zestril] 40 mg PO BID Metoprolol Succinate [Toprol Xl] 50 mg PO BID Pantoprazole [Protonix] 40 mg PO DAILY diltiaZEM [Cardizem] 60 mg PO DAILY 02/23/22 21:00 Lovastatin [Lovastatin] 40 mg PO QPM 02/24/22 05:00 BMP - BASIC METABOLIC PANEL [CHEM] DAILYLAB BNP - B-NATRIURETIC PEPTIDE [IAI] DAILYLAB CBC - COMP BLD CT W/AUTO DIFF [HEME] DAILYLAB 02/24/22 07:00 Levothyroxine [Synthroid] 125 mcg PO QDAC 02/25/22 05:00 BMP - BASIC METABOLIC PANEL [CHEM] DAILYLAB BNP - B-NATRIURETIC PEPTIDE [IAI] DAILYLAB CBC - COMP BLD CT W/AUTO DIFF [HEME] DAILYLAB 02/26/22 05:00 BMP - BASIC METABOLIC PANEL [CHEM] DAILYLAB BNP - B-NATRIURETIC PEPTIDE [IAI] DAILYLAB CBC - COMP BLD CT W/AUTO DIFF [HEME] DAILYLAB 02/27/22 05:00 BMP - BASIC METABOLIC PANEL [CHEM] DAILYLAB BNP - B-NATRIURETIC PEPTIDE [IAI] DAILYLAB CBC - COMP BLD CT W/AUTO DIFF [HEME] DAILYLAB 02/28/22 05:00 BMP - BASIC METABOLIC PANEL [CHEM] DAILYLAB BNP - B-NATRIURETIC PEPTIDE [IAI] DAILYLAB CBC - COMP BLD CT W/AUTO DIFF [HEME] DAILYLAB Subjective - Subjective Patient Reports: Other (Patient was resting comfortably in bed at time of exam. However she is very lethargic. Barely responds to questions asked by mumbling. Attempt to wean off BiPAP today resulted in oxygen saturation in the 70s. BiPAP was replaced. Denies any significant complaints) Objective Vital Signs: Vital Signs - 24 hr 02/22/22 02/22/22 02/22/22 11:00 11:08 12:03 Temperature 36.9 C Heart Rate 79 90 98 Heart Rate [ Apical] Heart Rate [ Monitoring electrodes] Respiratory 12 17 Rate Blood Pressure 189/89 H 218/95 H Blood Pressure [Left Brachial artery] O2 Saturation 88 L 100 100 02/22/22 02/22/22 02/22/22 12:14 14:07 14:30 Temperature Heart Rate 89 89 Heart Rate [ Apical] Heart Rate [ Monitoring electrodes] Respiratory 19 18 Rate Blood Pressure 195/94 H 209/93 H 208/108 H Blood Pressure [Left Brachial artery] O2 Saturation 100 98 02/22/22 02/22/22 02/22/22 15:00 15:30 15:54 Temperature Heart Rate 89 89 Heart Rate [ Apical] Heart Rate [ Monitoring electrodes] Respiratory 18 15 Rate Blood Pressure 224/122 H Blood Pressure [Left Brachial artery] O2 Saturation 97 99 86 L 02/22/22 02/22/22 02/22/22 16:00 16:30 17:00 Temperature Heart Rate 89 69 69 Heart Rate [ Apical] Heart Rate [ Monitoring electrodes] Respiratory 23 22 24 Rate Blood Pressure 191/100 H 168/96 H 163/90 H Blood Pressure [Left Brachial artery] O2 Saturation 97 98 99 02/22/22 02/22/22 02/22/22 18:05 18:10 18:15 Temperature 36.3 C L Heart Rate Heart Rate [ 76 77 69 Apical] Heart Rate [ Monitoring electrodes] Respiratory 11 L 8 L 16 Rate Blood Pressure 219/110 H Blood Pressure 219/110 H 225/101 H 172/99 H [Left Brachial artery] O2 Saturation 93 96 100 02/22/22 02/22/22 02/22/22 18:27 18:30 18:45 Temperature Heart Rate 69 Heart Rate [ Apical] Heart Rate [ 74 70 Monitoring electrodes] Respiratory 12 11 L Rate Blood Pressure Blood Pressure 162/87 H 152/77 H [Left Brachial artery] O2 Saturation 96 93 02/22/22 02/22/22 02/22/22 19:00 19:24 21:06 Temperature Heart Rate 69 70 Heart Rate [ Apical] Heart Rate [ 72 Monitoring electrodes] Respiratory 16 Rate Blood Pressure Blood Pressure 143/76 H [Left Brachial artery] O2 Saturation 96 02/22/22 02/22/22 02/22/22 21:15 22:00 23:00 Temperature 36.6 C Heart Rate Heart Rate [ Apical] Heart Rate [ 72 69 69 Monitoring electrodes] Respiratory 15 9 L 9 L Rate Blood Pressure Blood Pressure 157/99 H 132/78 H 123/76 [Left Brachial artery] O2 Saturation 93 92 93 02/23/22 02/23/22 02/23/22 00:00 00:09 01:00 Temperature Heart Rate 69 Heart Rate [ Apical] Heart Rate [ 69 69 Monitoring electrodes] Respiratory 8 L 9 L Rate Blood Pressure Blood Pressure 125/75 121/74 [Left Brachial artery] O2 Saturation 94 94 02/23/22 02/23/22 02/23/22 02:00 03:00 03:04 Temperature Heart Rate 69 Heart Rate [ Apical] Heart Rate [ 69 70 Monitoring electrodes] Respiratory 8 L 15 Rate Blood Pressure Blood Pressure 127/75 148/85 H [Left Brachial artery] O2 Saturation 90 L 86 L 02/23/22 02/23/22 02/23/22 04:00 04:57 05:00 Temperature Heart Rate 69 Heart Rate [ Apical] Heart Rate [ 69 69 Monitoring electrodes] Respiratory 9 L 10 L Rate Blood Pressure Blood Pressure 134/76 H 154/86 H [Left Brachial artery] O2 Saturation 100 100 02/23/22 02/23/22 02/23/22 06:00 07:24 08:00 Temperature Heart Rate 69 Heart Rate [ Apical] Heart Rate [ 69 69 Monitoring electrodes] Respiratory 9 L 20 Rate Blood Pressure Blood Pressure 150/82 H 166/96 H [Left Brachial artery] O2 Saturation 96 100 Oxygen O2 Source BIPAP Oxygen Flow Rate 4 I&O (Last 24 Hrs): Intake and Output Totals x24h 02/21/22 02/22/22 02/23/22 23:59 23:59 23:59 Intake Total 566.1 Output Total 1050 805 Balance -483.9 -805 General: Moderate distress (respiratory distress), Other (lethargic) HEENT: Atraumatic, PERRLA, EOMI Neck: Other (JVD noted) Neuro: Other (lethargic. Not oriented to time, place or reason) Cardiovascular: Regular rate, Other (irregular rhythm) Respiratory: Chest non-tender, Breath sounds nml Abdomen: Normal bowel sounds, Soft, No tenderness, No masses Extremities: Other (trace to +1 lower extremity edema) Comments/Notes: extensive bruising across breasts bilaterally - Results Results: Laboratory Results WBC 7.1 x10^3/uL (4.8-10.8) 02/23/22 05:55 RBC 3.08 10^6/uL (4.20-5.40) L 02/23/22 05:55 Hgb 8.2 g/dL (12.0-16.0) L 02/23/22 05:55 Hct 26.9 % (37.0-47.0) L 02/23/22 05:55 MCV 87.3 fL (81.0-99.0) 02/23/22 05:55 MCH 26.6 pg (27.0-31.0) L 02/23/22 05:55 MCHC 30.5 g/dL (32.0-36.0) L 02/23/22 05:55 RDW 19.1 % (12.0-15.0) H 02/23/22 05:55 Plt Count 312 10^3/uL (130-450) 02/23/22 05:55 MPV 9.9 fL (7.9-10.8) 02/23/22 05:55 Reticulocyte % (Auto) 4.38 % (0.5-2.3) H 02/22/22 21:18 Neut # (Auto) 5.5 10^3/uL (1.5-6.6) 02/23/22 05:55 Lymph # (Auto) 0.9 10^3/uL (1.5-3.5) L 02/23/22 05:55 Blaine # (Auto) 0.5 10^3/uL (0.0-1.0) 02/23/22 05:55 Eos # (Auto) 0.1 10^3/uL (0.0-0.7) 02/23/22 05:55 Baso # (Auto) 0.0 10^3/uL (0.0-0.1) 02/23/22 05:55 Absolute Nucleated RBC 0.03 x10^3/uL 02/23/22 05:55 Nucleated RBC % 0.4 /100WBC 02/23/22 05:55 Absolute Retic 0.144 10^6/uL (0.020-0.110) H 02/22/22 21:18 PT 12.7 secs (9.9-12.6) H 02/22/22 12:51 INR 1.1 (0.8-1.2) 02/22/22 12:51 Bld Gas Analysis Time 0505 02/23/22 04:55 Sample Site RIGHT RADIAL 02/23/22 04:55 ABG pH 7.39 (7.35-7.45) 02/23/22 04:55 ABG pCO2 44 mmHg (34-45) 02/23/22 04:55 ABG pO2 76 mmHg (80-100) L 02/23/22 04:55 ABG HCO3 25.6 mmol/L (22.0-26.0) 02/23/22 04:55 ABG Total CO2 26.9 MMOL/L (21.0-29.0) 02/23/22 04:55 ABG O2 Saturation 94 % (94-98) 02/23/22 04:55 ABG Base Excess 0.4 mmol/L (-2.0-3.0) 02/23/22 04:55 Néstor Test POSITIVE 02/23/22 04:55 Respiration Rate 16 b/min 02/23/22 04:55 Room Air YES 02/22/22 12:22 O2 Delivery Device BiPAP 02/23/22 04:55 FiO2 35.00 02/23/22 04:55 PEEP 12 cmH2O 02/23/22 04:55 EPAP 5 cmH2O 02/22/22 18:45 IPAP 5 cmH2O 02/23/22 04:55 Sodium 136 mmol/L (135-145) 02/23/22 05:55 Potassium 3.7 mmol/L (3.5-5.0) 02/23/22 05:55 Chloride 103 mmol/L (101-111) 02/23/22 05:55 Carbon Dioxide 26 mmol/L (21-32) 02/23/22 05:55 Anion Gap 7.0 (6-13) 02/23/22 05:55 BUN 23 mg/dL (6-20) H 02/23/22 05:55 Creatinine 1.1 mg/dL (0.4-1.0) H 02/23/22 05:55 Estimated GFR (MDRD) 58 (>89) L 02/23/22 05:55 Glucose 137 mg/dL (70-100) H 02/23/22 05:55 POC Whole Bld Glucose 127 mg/dL (70 - 100) H 02/23/22 08:09 Lactic Acid 1.2 mmol/L (0.5-2.2) 02/22/22 11:48 Calcium 8.8 mg/dL (8.5-10.3) 02/23/22 05:55 Iron 39 ug/dL (28-170) 02/22/22 21:18 TIBC 379 ug/dL (250-450) 02/22/22 21:18 % Saturation 10 % (20-50) L 02/22/22 21:18 Transferrin 271 mg/dL (192-382) 02/22/22 21:18 Ferritin 27.0 ng/mL (11.0-306.8) 02/22/22 21:18 Total Bilirubin 2.3 mg/dL (0.2-1.0) H 02/22/22 12:51 AST 15 IU/L (10-42) 02/22/22 12:51 ALT 14 IU/L (10-60) 02/22/22 12:51 Alkaline Phosphatase 119 IU/L (42-121) 02/22/22 12:51 Ammonia 15.1 umol/L (7-35) 02/23/22 05:55 Lactate Dehydrogenase 227 IU/L (91-225) H 02/22/22 21:18 Troponin I High Sens 22.0 ng/L (2.3-14.8) H* 02/22/22 12:51 B-Natriuretic Peptide 1146 pg/mL (5-100) H 02/23/22 05:55 Total Protein 6.8 g/dL (6.7-8.2) 02/22/22 12:51 Albumin 3.3 g/dL (3.2-5.5) 02/22/22 12:51 Globulin 3.5 g/dL (2.1-4.2) 02/22/22 12:51 Albumin/Globulin Ratio 0.9 (1.0-2.2) L 02/22/22 12:51 Lipase 53 U/L (22-51) H 02/22/22 12:51 Vitamin B12 426 pg/mL (180-914) 02/22/22 21:18 TSH 1.23 uIU/mL (0.34-5.60) 02/23/22 05:55 Urine Color YELLOW 02/22/22 13:06 Urine Clarity CLEAR (CLEAR) 02/22/22 13:06 Urine pH 5.5 PH (5.0-7.5) 02/22/22 13:06 Ur Specific Wiggins >=1.030 (1.002-1.030) H 02/22/22 13:06 Urine Protein 30 mg/dL (NEGATIVE) H 02/22/22 13:06 Urine Glucose (UA) NEGATIVE mg/dL (NEGATIVE) 02/22/22 13:06 Urine Ketones NEGATIVE mg/dL (NEGATIVE) 02/22/22 13:06 Urine Occult Blood NEGATIVE (NEGATIVE) 02/22/22 13:06 Urine Nitrite NEGATIVE (NEGATIVE) 02/22/22 13:06 Urine Bilirubin NEGATIVE (NEGATIVE) 02/22/22 13:06 Urine Urobilinogen 2 E.U./dL (NORMAL) H 02/22/22 13:06 Ur Leukocyte Esterase TRACE (NEGATIVE) H 02/22/22 13:06 Urine RBC 0-5 /HPF (0-5) 02/22/22 13:06 Urine WBC 6-10 /HPF (0-5) H 02/22/22 13:06 Ur Squamous Epith Cells RARE Squamous (<= Few) 02/22/22 13:06 Urine Bacteria Many /HPF (None Seen) H 02/22/22 13:06 Ur Microscopic Review INDICATED 02/22/22 13:06 Urine Culture Comments INDICATED 02/22/22 13:06 Nasal Adenovirus (PCR) NOT DETECTED 02/22/22 12:15 Nasal B. parapertussis DNA (PCR) NOT DETECTED 02/22/22 12:15 Nasal Coronavir 229E PCR NOT DETECTED 02/22/22 12:15 Nasal Coronavir HKU1 PCR NOT DETECTED 02/22/22 12:15 Nasal Coronavir NL63 PCR NOT DETECTED 02/22/22 12:15 Nasal Coronavir OC43 PCR NOT DETECTED 02/22/22 12:15 Nasal Enterovir/Rhinovir PCR NOT DETECTED 02/22/22 12:15 Nasal Influenza B PCR NOT DETECTED 02/22/22 12:15 Nasal Influenza A PCR NOT DETECTED 02/22/22 12:15 Nasal Parainfluen 1 PCR NOT DETECTED 02/22/22 12:15 Nasal Parainfluen 2 PCR NOT DETECTED 02/22/22 12:15 Nasal Parainfluen 3 PCR NOT DETECTED 02/22/22 12:15 Nasal Parainfluen 4 PCR NOT DETECTED 02/22/22 12:15 Nasal RSV (PCR) NOT DETECTED 02/22/22 12:15 Nasal Screen MRSA (PCR) NEGATIVE (NEGATIVE) 02/22/22 21:15 Nasal B.pertussis DNA PCR NOT DETECTED 02/22/22 12:15 Nasal C.pneumoniae (PCR) NOT DETECTED 02/22/22 12:15 Benito Human Metapneumo PCR NOT DETECTED 02/22/22 12:15 Nasal M.pneumoniae (PCR) NOT DETECTED 02/22/22 12:15 Nasal SARS-CoV-2 (PCR) NOT DETECTED 02/22/22 12:15 Last Dose Date UNKNOWN 02/22/22 12:51 Last Dose Time UNKNOWN 02/22/22 12:51 Digoxin 0.9 ng/mL 02/22/22 12:51 Urine Opiates Screen NEGATIVE (NEGATIVE) 02/22/22 13:06 Ur Oxycodone Screen NEGATIVE (NEGATIVE) 02/22/22 13:06 Urine Methadone Screen NEGATIVE (NEGATIVE) 02/22/22 13:06 Ur Propoxyphene Screen NEGATIVE (NEGATIVE) 02/22/22 13:06 Ur Barbiturates Screen NEGATIVE (NEGATIVE) 02/22/22 13:06 Ur Tricyclics Screen NEGATIVE (NEGATIVE) 02/22/22 13:06 Ur Phencyclidine Scrn NEGATIVE (NEGATIVE) 02/22/22 13:06 Ur Amphetamine Screen NEGATIVE (NEGATIVE) 02/22/22 13:06 U Methamphetamines Scrn NEGATIVE (NEGATIVE) 02/22/22 13:06 U Benzodiazepines Scrn NEGATIVE (NEGATIVE) 02/22/22 13:06 Urine Cocaine Screen NEGATIVE (NEGATIVE) 02/22/22 13:06 U Cannabinoids Screen NEGATIVE (NEGATIVE) 02/22/22 13:06 ABX Reporting Has patient been on IV antibiotics over the past 48 hours?: No
[2022-02-23] MEDS: INSULIN REGULAR HUMAN 300 UNIT/3 ML VIAL SUBQ SCH ×4 (08:57→21:40)
[2022-02-23] MEDS ORDERED: ENOXAPARIN 40 MG/0.4 ML SYRINGE SUBQ SCH (09:00)
[2022-02-23] MEDS: FUROSEMIDE 40 MG/4 ML VIAL IVP SCH ×2 (09:24→14:16)
[2022-02-23] MEDS: SODIUM CHLORIDE FLUSH 0.9% 10 ML SYRINGE IVP PRN ×3 (09:25→14:23)
[2022-02-23 10:20] LABS: MAGNESIUM 1.9 mg/dL (1.7-2.8)
[2022-02-23] MEDS: DIGOXIN 125 MCG TABLET PO SCH (12:10)
[2022-02-23] MEDS: ASPIRIN CHEW 81 MG TABLET PO SCH (12:10)
[2022-02-23] MEDS: hydrALAZINE 25 MG TABLET PO SCH ×2 (12:11→21:24)
[2022-02-23] MEDS: PANTOPRAZOLE 40 MG TABLET PO SCH (12:11)
[2022-02-23] MEDS: lisinopriL 20 MG TABLET PO SCH ×2 (12:11→21:24)
[2022-02-23] MEDS: METOPROLOL SUCCINATE 50 MG TABLET PO SCH ×2 (12:11→21:25)
[2022-02-23] MEDS: METOPROLOL 5 MG/5 ML VIAL IVP SCH ×2 (12:18→18:24)
[2022-02-23] MEDS ORDERED: POTASSIUM CHLOR 10 MEQ/100 ML 10 MEQ/100 ML BAG IV SCH (13:00)
[2022-02-23 13:40] LABS: ESTIMATED AVERAGE GLUCOSE 177 mg/dL (70-100); HEMOGLOBIN A1c% 7.8 % (4.27-6.07)
[2022-02-23] MEDS: POTASSIUM CHLOR 10 MEQ/100 ML 10 MEQ/100 ML BAG IV SCH ×2 (15:28→19:09)
[2022-02-23 16:12] LABS: HCT - HEMATOCRIT 29.9 % (37.0-47.0); HGB - HEMOGLOBIN 9.2 g/dL (12.0-16.0); MEAN CORPUSCULAR HGB CONC 30.8 g/dL (32.0-36.0); MEAN CORPUSCULAR VOLUME 87.7 fL (81.0-99.0); MEAN PLATELET VOLUME 9.9 fL (7.9-10.8); RED BLOOD COUNT 3.41 10^6/uL (4.20-5.40); RED CELL DISTRIBUTION WIDTH 19.5 % (12.0-15.0)
[2022-02-23] MEDS: ACETAMINOPHEN 325 MG TABLET PO PRN (18:30)
[2022-02-23] MEDS: ATORVASTATIN 10 MG TABLET PO SCH (21:24)
[2022-02-24] MEDS: METOPROLOL 5 MG/5 ML VIAL IVP SCH ×2 (00:35→06:37)
[2022-02-24] MEDS: SODIUM CHLORIDE FLUSH 0.9% 10 ML SYRINGE IVP SCH ×3 (00:35→17:10)
[2022-02-24 04:40] LABS: BASOPHILS % (AUTO) 0.4 %; EOSINOPHILS # (AUTO) 0.1 10^3/uL (0.0-0.7); EOSINOPHILS % (AUTO) 1.6 %; HGB - HEMOGLOBIN 8.8 g/dL (12.0-16.0); LYMPHOCYTES # (AUTO) 1.5 10^3/uL (1.5-3.5); LYMPHOCYTES % (AUTO) 18.4 %; MEAN CORPUSCULAR HEMOGLOBIN 26.8 pg (27.0-31.0); MEAN CORPUSCULAR HGB CONC 30.3 g/dL (32.0-36.0); MEAN CORPUSCULAR VOLUME 88.4 fL (81.0-99.0); MEAN PLATELET VOLUME 10.1 fL (7.9-10.8); MONOCYTES # (AUTO) 0.5 10^3/uL (0.0-1.0); MONOCYTES % (AUTO) 6.8 %; NEUTROPHILS # (AUTO) 5.8 10^3/uL (1.5-6.6); NEUTROPHILS % (AUTO) 72.4 %; NRBC ABSOLUTE COUNT (AUTO) 0.04 x10^3/uL; NUCLEATED RED BLOOD CELLS AUTO 0.5 /100WBC; PLT - PLATELET COUNT 341 10^3/uL (130-450); RED BLOOD COUNT 3.28 10^6/uL (4.20-5.40); RED CELL DISTRIBUTION WIDTH 19.6 % (12.0-15.0)
[2022-02-24 04:49] LABS: CALCIUM 9.1 mg/dL (8.5-10.3); CREATININE 1.1 mg/dL (0.4-1.0)
[2022-02-24] MEDS: FUROSEMIDE 40 MG/4 ML VIAL IVP SCH ×2 (06:32→13:55)
[2022-02-24] MEDS: LEVOTHYROXINE 125 MCG TABLET PO SCH (06:33)
[2022-02-24] MEDS: PANTOPRAZOLE 40 MG TABLET PO SCH (06:33)
--- NOTE | 2022-02-24 07:34 | PROVIDER PROGRESS NOTE ---
Assessment/Plan - Problem List (1) Acute exacerbation of CHF (congestive heart failure) Qualifiers: Heart failure type: unspecified Qualified Code(s): I50.9 - Heart failure, unspecified Assessment/Plan: 02/24/22 Patient was more responsive/alert today. Another attempt to wean her off the BiPAP was done today. Currently on 10 L of oxygen year high flow nasal cannula with oxygen saturation in the high 90s. Continue Lasix 40 mg IV twice daily. BNP improved from 1146 down to 663. We will continue patient's medications as listed below. She is able to tolerate oral intake at this time. We will discontinue IV metoprolol. Chest x-ray done 02/24/22 morning showed cardiomegaly with prominent pulmonary vasculature and small bilateral pleural effusions most likely secondary to CHF. Next goal would be to see if patient can work with physical therapy on 02/25/22. 02/23/22 Patient is currently on the BiPAP. Lasix 40 mg IV twice daily ordered. Metoprolol tartrate 5 mg IV every 6 hours scheduled. BNP was 1146. Will monitor daily. Strict I's and O's. Cannot obtain a 2D echocardiogram because is currently unavailable at our facility Initial troponin was 22 with repeat troponin of 32. When patient is able to tolerate p.o., will resume patient's oral medications. These include: Digoxin 125 mcg p.o. daily Metoprolol succinate 50 mg p.o. twice daily Lisinopril 40 mg p.o. twice daily (2) Acute respiratory failure with hypoxia and hypercapnia Assessment/Plan: Multifactorial secondary to CHF exacerbation and obstructive sleep apnea. Patient is currently on a BiPAP. Will wean as tolerated. CHF exacerbation being treated as outlined above. (3) Hypertension Assessment/Plan: At time of admission patient's systolic blood pressure was 219. This has since improved. Systolic blood pressure currently fluctuates between 120s and 150s. On metoprolol 5 mg IV every 6 hours scheduled. On hydralazine 10 mg IV every 4 hours as needed for systolic blood pressure gre ater than 160. On Lasix 40 mg IV twice daily. When patient is able to tolerate oral medications will resume lisinopril, diltiazem and metoprolol succinate. (4) Contusion, chest wall Qualifiers: Encounter type: initial encounter Assessment/Plan: It was an unwitnessed fall. She has extensive bruising across her chest/breast area as a result. CT head done 02/22/2022 showed no acute intracranial abnormality. Chest and rib x-ray showed cardiomegaly with suggested pulmonary edema. Extensive mediastinal calcifications which may reflect granulomatous change No rib fractures were noticed. Ultrasound of the left breast ordered due to firmness on palpation. (5) History of atrial flutter Assessment/Plan: Currently rate controlled. Currently on metoprolol tartrate 5 mg every 6 hours scheduled. When patient is able to tolerate oral medications will resume her home medications. This include metoprolol succinate 50 mg p.o. twice daily, diltiazem 60 mg p.o. daily and digoxin 125 mcg p.o. daily. On a baby aspirin daily. (6) CHELITA (obstructive sleep apnea) Assessment/Plan: Patient uses a CPAP at night. Currently on the BiPAP. (7) Type 2 diabetes mellitus, without long-term current use of insulin Qualifiers: Diabetes mellitus complication status: without complication Qualified Code(s): E11.9 - Type 2 diabetes mellitus without complications Assessment/Plan: Accu-Cheks before every meal at bedtime. Sliding scale insulin. We will check hemoglobin A1c in the morning. (8) Hematoma of left breast Assessment/Plan: Secondary to contusion following fall at home. It was an unwitnessed fall. Ultrasound of the breast done 02/23/22 showed a hematoma measuring 11.2 x 5.7 x 11 cm. Hemoglobin this morning was 8.8. Will repeat hemoglobin in the afternoon and address accordingly. Lovenox for DVT prophylaxis discontinued. (9) Anemia Qualifiers: Anemia type: unspecified type Qualified Code(s): D64.9 - Anemia, unspecified Assessment/Plan: Hemoglobin was stable at 8.8. Patient has a large left breast hematoma foll owing fall at home. We will monitor H&H closely. (10) Hypothyroidism Assessment/Plan: On Synthroid 125 mcg p.o. daily AC (12) GERD (gastroesophageal reflux disease) Assessment/Plan: Protonix 40 mg p.o. daily AC. (4) Contusion, chest wall Qualifiers: Encounter type: initial encounter (7) Type 2 diabetes mellitus, without long-term current use of insulin Qualifiers: Diabetes mellitus complication status: without complication Qualified Code(s): E11.9 - Type 2 diabetes mellitus without complications (9) Anemia Qualifiers: Anemia type: unspecified type Qualified Code(s): D64.9 - Anemia, unspecified - Current Meds Current Meds: Current Medications Generic Name Dose Route Start Last Admin Trade Name Freq PRN Reason Stop Dose Admin Acetaminophen 650 mg 02/22/22 16:08 02/23/22 18:30 Acetaminophen 325 Mg Tablet PO 650 mg Q4HR PRN Administration Pain 1 to 4, or Fever Aspirin 81 mg 02/23/22 09:00 02/23/22 12:10 Aspirin Chew 81 Mg Tablet PO Not Given DAILY PANDA Atorvastatin Calcium 20 mg 02/23/22 21:00 02/23/22 21:24 Atorvastatin 10 Mg Tablet PO 20 mg QPM PANDA Administration Digoxin 125 mcg 02/23/22 09:00 02/23/22 12:10 Digoxin 125 Mcg Tablet PO Not Given DAILY PANDA Diltiazem HCl 60 mg 02/23/22 09:00 02/23/22 12:11 Diltiazem 60 Mg Tablet PO Not Given DAILY PANDA Furosemide 40 mg 02/23/22 09:00 02/24/22 06:32 Furosemide 40 Mg/4 Ml Vial IVP 40 mg BIDDIURETIC PANDA Administration Hydralazine HCl 50 mg 02/23/22 09:00 02/23/22 21:24 Hydralazine 25 Mg Tablet PO 50 mg BID PANDA Administration Insulin Human Regular 2 - 10 unit 02/23/22 08:00 02/23/22 21:40 Insulin Regular Human 300 Unit/3 Ml Vial SUBQ Not Given ACHS@0800,1200,1700,2100 [facility] Protocol Levothyroxine Sodium 125 mcg 02/24/22 07:00 02/24/22 06:33 Levothyroxine 125 Mcg Tablet PO 125 mcg QDAC PANDA Administration Lisinopril 40 mg 02/23/22 09:00 02/23/22 21:24 Lisinopril 20 Mg Tablet PO 40 mg BID PANDA Administration Metoprolol Succinate 50 mg 02/23/22 09:00 02/23/22 21:25 Metoprolol Succinate 50 Mg Tablet PO 50 mg BID PANDA Administration Metoprolol Tartrate 5 mg 02/23/22 12:00 02/24/22 06:37 Metoprolol 5 Mg/5 Ml Vial IVP 5 mg Q6HR PANDA Administration Pantoprazole Sodium 40 mg 02/23/22 09:00 02/24/22 06:33 Pantoprazole 40 Mg Tablet PO 40 mg QDAC PANDA Administration Sodium Chloride 10 ml 02/22/22 16:08 02/23/22 14:23 Sodium Chloride Flush 0.9% 10 Ml Syringe IVP 10 ml PRN PRN Administration NEEDED PER PROVIDER ORDERS Sodium Chloride 10 ml 02/22/22 17:00 02/24/22 00:35 Sodium Chloride Flush 0.9% 10 Ml Syringe IVP 10 ml 0100,0900,1700 PANDA Administration - Lab Result Fish Bone Diagrams: 02/24/22 04:10 02/24/22 04:10 - Additional Planning My Orders: My Active Orders 02/23/22 09:00 Aspirin Chewable [[facility] [place] Aspirin] 81 mg PO DAILY Digoxin [Lanoxin] 125 mcg PO DAILY FUROSEMIDE INJ 40mg VIAL [LASIX INJ 40 mg VIAL] 40 mg IVP BIDDIURETIC Metoprolol Succinate [Toprol Xl] 50 mg PO BID Pantoprazole [Protonix] 40 mg PO QDAC diltiaZEM [Cardizem] 60 mg PO DAILY hydrALAZINE [Apresoline] 50 mg PO BID lisinopriL [Zestril] 40 mg PO BID 02/23/22 12:00 Metoprolol Inj [Lopressor Inj] 5 mg IVP Q6HR 02/23/22 15:08 Initiate ICU Electrolyte Prot. [RC] QSHIFT 02/23/22 21:00 Atorvastatin [Lipitor] 20 mg PO QPM 02/24/22 04:10 HEMOGLOBIN A1c% [CHEM] DAILYLAB 02/24/22 07:00 Levothyroxine [Synthroid] 125 mcg PO QDAC 02/24/22 07:32 Chest 1 View X-Ray [XR] Stat 02/25/22 05:00 BMP - BASIC METABOLIC PANEL [CHEM] DAILYLAB BNP - B-NATRIURETIC PEPTIDE [IAI] DAILYLAB CBC - COMP BLD CT W/AUTO DIFF [HEME] DAILYLAB 02/26/22 05:00 BMP - BASIC METABOLIC PANEL [CHEM] DAILYLAB BNP - B-NATRIURETIC PEPTIDE [IAI] DAILYLAB CBC - COMP BLD CT W/AUTO DIFF [HEME] DAILYLAB 02/27/22 05:00 BMP - BASIC METABOLIC PANEL [CHEM] DAILYLAB BNP - B-NATRIURETIC PEPTIDE [IAI] DAILYLAB CBC - COMP BLD CT W/AUTO DIFF [HEME] DAILYLAB 02/28/22 05:00 BMP - BASIC METABOLIC PANEL [CHEM] DAILYLAB BNP - B-NATRIURETIC PEPTIDE [IAI] DAILYLAB CBC - COMP BLD CT W/AUTO DIFF [HEME] DAILYLAB Subjective - Subjective Patient Reports: Other (Patient still appears weak today but is more alert and responsive compared to the previous day. BiPAP was replaced with high flow nasal cannula at 10 L which the patient appeared to tolerate.) Objective Vital Signs: Vital Signs - 24 hr 02/23/22 02/23/22 02/23/22 08:00 09:00 10:00 Temperature Heart Rate Heart Rate [ Apical] Heart Rate [ 69 73 73 Monitoring electrodes] Respiratory 20 21 24 Rate Blood Pressure Blood Pressure 166/96 H 167/81 H 165/94 H [Left Brachial artery] Blood Pressure [Right Brachial artery] O2 Saturation 100 96 96 02/23/22 02/23/22 02/23/22 10:54 10:58 11:00 Temperature 34.8 C L 34.9 C L Heart Rate 85 Heart Rate [ Apical] Heart Rate [ 75 Monitoring electrodes] Respiratory 12 Rate Blood Pressure Blood Pressure 145/90 H [Left Brachial artery] Blood Pressure [Right Brachial artery] O2 Saturation 98 02/23/22 02/23/22 02/23/22 12:00 12:18 12:20 Temperature 35.1 C L Heart Rate Heart Rate [ Apical] Heart Rate [ 69 80 Monitoring electrodes] Respiratory 21 Rate Blood Pressure 143/83 H Blood Pressure 141/83 H 124/92 H [Left Brachial artery] Blood Pressure [Right Brachial artery] O2 Saturation 99 02/23/22 02/23/22 02/23/22 12:34 12:49 13:00 Temperature 35.3 C L 35.5 C L Heart Rate 69 Heart Rate [ Apical] Heart Rate [ 84 69 Monitoring electrodes] Respiratory 22 Rate Blood Pressure Blood Pressure 127/83 H 143/75 H [Left Brachial artery] Blood Pressure [Right Brachial artery] O2 Saturation 97 02/23/22 02/23/22 02/23/22 14:00 15:00 16:00 Temperature 35.8 C L 35.9 C L 35.8 C L Heart Rate Heart Rate [ Apical] Heart Rate [ 69 69 69 Monitoring electrodes] Respiratory 19 16 17 Rate Blood Pressure Blood Pressure 153/81 H 151/95 H 157/82 H [Left Brachial artery] Blood Pressure [Right Brachial artery] O2 Saturation 96 92 92 02/23/22 02/23/22 02/23/22 17:00 17:50 18:00 Temperature 35.9 C L 36.5 C Heart Rate Heart Rate [ Apical] Heart Rate [ 69 69 69 Monitoring electrodes] Respiratory 14 18 14 Rate Blood Pressure Blood Pressure [Left Brachial artery] Blood Pressure 139/70 H 139/70 H 146/78 H [Right Brachial artery] O2 Saturation 93 83 L 95 02/23/22 02/23/22 02/23/22 18:06 18:24 19:00 Temperature Heart Rate 69 Heart Rate [ Apical] Heart Rate [ 64 Monitoring electrodes] Respiratory 13 Rate Blood Pressure 146/78 H Blood Pressure [Left Brachial artery] Blood Pressure 137/74 H [Right Brachial artery] O2 Saturation 96 02/23/22 02/23/22 02/23/22 19:14 20:00 21:00 Temperature 36.6 C Heart Rate 64 Heart Rate [ Apical] Heart Rate [ 69 69 Monitoring electrodes] Respiratory 12 18 Rate Blood Pressure Blood Pressure [Left Brachial artery] Blood Pressure 120/68 107/64 [Right Brachial artery] O2 Saturation 93 96 02/23/22 02/23/22 02/23/22 22:00 22:14 23:00 Temperature Heart Rate 68 Heart Rate [ Apical] Heart Rate [ 71 69 Monitoring electrodes] Respiratory 11 L 12 Rate Blood Pressure Blood Pressure [Left Brachial artery] Blood Pressure 124/80 112/74 [Right Brachial artery] O2 Saturation 99 96 02/24/22 02/24/22 02/24/22 00:00 00:35 01:00 Temperature 36.5 C Heart Rate Heart Rate [ 69 Apical] Heart Rate [ 47 L 69 Monitoring electrodes] Respiratory 12 10 L Rate Blood Pressure 115/68 Blood Pressure [Left Brachial artery] Blood Pressure 115/68 128/78 [Right Brachial artery] O2 Saturation 97 98 02/24/22 02/24/22 02/24/22 02:00 02:18 03:00 Temperature Heart Rate 69 Heart Rate [ Apical] Heart Rate [ 69 69 Monitoring electrodes] Respiratory 10 L 10 L Rate Blood Pressure Blood Pressure [Left Brachial artery] Blood Pressure 127/79 132/77 H [Right Brachial artery] O2 Saturation 98 97 02/24/22 02/24/22 02/24/22 04:00 05:00 05:51 Temperature 36.6 C Heart Rate 69 Heart Rate [ Apical] Heart Rate [ 69 69 Monitoring electrodes] Respiratory 13 16 Rate Blood Pressure Blood Pressure [Left Brachial artery] Blood Pressure 148/81 H 136/77 H [Right Brachial artery] O2 Saturation 96 93 02/24/22 02/24/22 02/24/22 06:00 06:37 06:55 Temperature Heart Rate 69 Heart Rate [ Apical] Heart Rate [ 69 Monitoring electrodes] Respiratory 13 Rate Blood Pressure 131/75 H Blood Pressure [Left Brachial artery] Blood Pressure 131/75 H [Right Brachial artery] O2 Saturation 97 Oxygen O2 Source BIPAP Oxygen Flow Rate 4 I&O (Last 24 Hrs): Intake and Output Totals x24h 02/22/22 02/23/22 02/24/22 23:59 23:59 23:59 Intake Total 566.1 220.000 Output Total 1050 2920 435 Balance -483.9 -2700.000 -435 Comments/Notes: General: Moderate distress (respiratory distress), Other (lethargic) HEENT: Atraumatic, PERRLA, EOMI Neck: Other (JVD noted) Neuro: Other (lethargic. Not oriented to time, place or reason) Cardiovascular: Regular rate, Other (irregular rhythm) Respiratory: Chest non-tender, Breath sounds nml Abdomen: Normal bowel sounds, Soft, No tenderness, No masses Extremities: Other (trace to +1 lower extremity edema) Comments/Notes: extensive bruising across breasts bilaterally - Results Results: Laboratory Results WBC 8.0 x10^3/uL (4.8-10.8) 02/24/22 04:10 RBC 3.28 10^6/uL (4.20-5.40) L 02/24/22 04:10 Hgb 8.8 g/dL (12.0-16.0) L 02/24/22 04:10 Hct 29.0 % (37.0-47.0) L 02/24/22 04:10 MCV 88.4 fL (81.0-99.0) 02/24/22 04:10 MCH 26.8 pg (27.0-31.0) L 02/24/22 04:10 MCHC 30.3 g/dL (32.0-36.0) L 02/24/22 04:10 RDW 19.6 % (12.0-15.0) H 02/24/22 04:10 Plt Count 341 10^3/uL (130-450) 02/24/22 04:10 MPV 10.1 fL (7.9-10.8) 02/24/22 04:10 Reticulocyte % (Auto) 4.38 % (0.5-2.3) H 02/22/22 21:18 Neut # (Auto) 5.8 10^3/uL (1.5-6.6) 02/24/22 04:10 Lymph # (Auto) 1.5 10^3/uL (1.5-3.5) 02/24/22 04:10 Martin # (Auto) 0.5 10^3/uL (0.0-1.0) 02/24/22 04:10 Eos # (Auto) 0.1 10^3/uL (0.0-0.7) 02/24/22 04:10 Baso # (Auto) 0.0 10^3/uL (0.0-0.1) 02/24/22 04:10 Absolute Nucleated RBC 0.04 x10^3/uL 02/24/22 04:10 Nucleated RBC % 0.5 /100WBC 02/24/22 04:10 Absolute Retic 0.144 10^6/uL (0.020-0.110) H 02/22/22 21:18 PT 12.7 secs (9.9-12.6) H 02/22/22 12:51 INR 1.1 (0.8-1.2) 02/22/22 12:51 Bld Gas Analysis Time 0505 02/23/22 04:55 Sample Site RIGHT RADIAL 02/23/22 04:55 ABG pH 7.39 (7.35-7.45) 02/23/22 04:55 ABG pCO2 44 mmHg (34-45) 02/23/22 04:55 ABG pO2 76 mmHg (80-100) L 02/23/22 04:55 ABG HCO3 25.6 mmol/L (22.0-26.0) 02/23/22 04:55 ABG Total CO2 26.9 MMOL/L (21.0-29.0) 02/23/22 04:55 ABG O2 Saturation 94 % (94-98) 02/23/22 04:55 ABG Base Excess 0.4 mmol/L (-2.0-3.0) 02/23/22 04:55 Néstor Test POSITIVE 02/23/22 04:55 Respiration Rate 16 b/min 02/23/22 04:55 Room Air YES 02/22/22 12:22 O2 Delivery Device BiPAP 02/23/22 04:55 FiO2 35.00 02/23/22 04:55 PEEP 12 cmH2O 02/23/22 04:55 EPAP 5 cmH2O 02/22/22 18:45 IPAP 5 cmH2O 02/23/22 04:55 Sodium 139 mmol/L (135-145) 02/24/22 04:10 Potassium 4.0 mmol/L (3.5-5.0) 02/24/22 04:10 Chloride 101 mmol/L (101-111) 02/24/22 04:10 Carbon Dioxide 29 mmol/L (21-32) 02/24/22 04:10 Anion Gap 9.0 (6-13) 02/24/22 04:10 BUN 22 mg/dL (6-20) H 02/24/22 04:10 Creatinine 1.1 mg/dL (0.4-1.0) H 02/24/22 04:10 Estimated GFR (MDRD) 58 (>89) L 02/24/22 04:10 Glucose 118 mg/dL (70-100) H 02/24/22 04:10 POC Whole Bld Glucose 142 mg/dL (70 - 100) H 02/23/22 17:30 Estimat Average Glucose 177 mg/dL (70-100) H 02/23/22 05:55 Hemoglobin A1c % 7.8 % (4.27-6.07) H 02/23/22 05:55 Lactic Acid 1.2 mmol/L (0.5-2.2) 02/22/22 11:48 Calcium 9.1 mg/dL (8.5-10.3) 02/24/22 04:10 Phosphorus 4.0 mg/dL (2.5-4.6) 02/23/22 04:55 Magnesium 1.9 mg/dL (1.7-2.8) 02/23/22 04:55 Iron 39 ug/dL (28-170) 02/22/22 21:18 TIBC 379 ug/dL (250-450) 02/22/22 21:18 % Saturation 10 % (20-50) L 02/22/22 21:18 Transferrin 271 mg/dL (192-382) 02/22/22 21:18 Ferritin 27.0 ng/mL (11.0-306.8) 02/22/22 21:18 Total Bilirubin 2.3 mg/dL (0.2-1.0) H 02/22/22 12:51 AST 15 IU/L (10-42) 02/22/22 12:51 ALT 14 IU/L (10-60) 02/22/22 12:51 Alkaline Phosphatase 119 IU/L (42-121) 02/22/22 12:51 Ammonia 15.1 umol/L (7-35) 02/23/22 05:55 Lactate Dehydrogenase 227 IU/L (91-225) H 02/22/22 21:18 Troponin I High Sens 45.0 ng/L (2.3-14.8) H* 02/23/22 16:04 B-Natriuretic Peptide 663 pg/mL (5-100) H 02/24/22 04:10 Total Protein 6.8 g/dL (6.7-8.2) 02/22/22 12:51 Albumin 3.3 g/dL (3.2-5.5) 02/22/22 12:51 Globulin 3.5 g/dL (2.1-4.2) 02/22/22 12:51 Albumin/Globulin Ratio 0.9 (1.0-2.2) L 02/22/22 12:51 Lipase 53 U/L (22-51) H 02/22/22 12:51 Vitamin B12 426 pg/mL (180-914) 02/22/22 21:18 TSH 1.23 uIU/mL (0.34-5.60) 02/23/22 05:55 Urine Color YELLOW 02/22/22 13:06 Urine Clarity CLEAR (CLEAR) 02/22/22 13:06 Urine pH 5.5 PH (5.0-7.5) 02/22/22 13:06 Ur Specific [place] >=1.030 (1.002-1.030) H 02/22/22 13:06 Urine Protein 30 mg/dL (NEGATIVE) H 02/22/22 13:06 Urine Glucose (UA) NEGATIVE mg/dL (NEGATIVE) 02/22/22 13:06 Urine Ketones NEGATIVE mg/dL (NEGATIVE) 02/22/22 13:06 Urine Occult Blood NEGATIVE (NEGATIVE) 02/22/22 13:06 Urine Nitrite NEGATIVE (NEGATIVE) 02/22/22 13:06 Urine Bilirubin NEGATIVE (NEGATIVE) 02/22/22 13:06 Urine Urobilinogen 2 E.U./dL (NORMAL) H 02/22/22 13:06 Ur Leukocyte Esterase TRACE (NEGATIVE) H 02/22/22 13:06 Urine RBC 0-5 /HPF (0-5) 02/22/22 13:06 Urine WBC 6-10 /HPF (0-5) H 02/22/22 13:06 Ur Squamous Epith Cells RARE Squamous (<= Few) 02/22/22 13:06 Urine Bacteria Many /HPF (None Seen) H 02/22/22 13:06 Ur Microscopic Review INDICATED 02/22/22 13:06 Urine Culture Comments INDICATED 02/22/22 13:06 Nasal Adenovirus (PCR) NOT DETECTED 02/22/22 12:15 Nasal B. parapertussis DNA (PCR) NOT DETECTED 02/22/22 12:15 Nasal Coronavir 229E PCR NOT DETECTED 02/22/22 12:15 Nasal Coronavir HKU1 PCR NOT DETECTED 02/22/22 12:15 Nasal Coronavir NL63 PCR NOT DETECTED 02/22/22 12:15 Nasal Coronavir OC43 PCR NOT DETECTED 02/22/22 12:15 Nasal Enterovir/Rhinovir PCR NOT DETECTED 02/22/22 12:15 Nasal Influenza B PCR NOT DETECTED 02/22/22 12:15 Nasal Influenza A PCR NOT DETECTED 02/22/22 12:15 Nasal Parainfluen 1 PCR NOT DETECTED 02/22/22 12:15 Nasal Parainfluen 2 PCR NOT DETECTED 02/22/22 12:15 Nasal Parainfluen 3 PCR NOT DETECTED 02/22/22 12:15 Nasal Parainfluen 4 PCR NOT DETECTED 02/22/22 12:15 Nasal RSV (PCR) NOT DETECTED 02/22/22 12:15 Nasal Screen MRSA (PCR) NEGATIVE (NEGATIVE) 02/22/22 21:15 Nasal B.pertussis DNA PCR NOT DETECTED 02/22/22 12:15 Nasal C.pneumoniae (PCR) NOT DETECTED 02/22/22 12:15 Benito Human Metapneumo PCR NOT DETECTED 02/22/22 12:15 Nasal M.pneumoniae (PCR) NOT DETECTED 02/22/22 12:15 Nasal SARS-CoV-2 (PCR) NOT DETECTED 02/22/22 12:15 Last Dose Date UNKNOWN 02/22/22 12:51 Last Dose Time UNKNOWN 02/22/22 12:51 Digoxin 0.9 ng/mL 02/22/22 12:51 Urine Opiates Screen NEGATIVE (NEGATIVE) 02/22/22 13:06 Ur Oxycodone Screen NEGATIVE (NEGATIVE) 02/22/22 13:06 Urine Methadone Screen NEGATIVE (NEGATIVE) 02/22/22 13:06 Ur Propoxyphene Screen NEGATIVE (NEGATIVE) 02/22/22 13:06 Ur Barbiturates Screen NEGATIVE (NEGATIVE) 02/22/22 13:06 Ur Tricyclics Screen NEGATIVE (NEGATIVE) 02/22/22 13:06 Ur Phencyclidine Scrn NEGATIVE (NEGATIVE) 02/22/22 13:06 Ur Amphetamine Screen NEGATIVE (NEGATIVE) 02/22/22 13:06 U Methamphetamines Scrn NEGATIVE (NEGATIVE) 02/22/22 13:06 U Benzodiazepines Scrn NEGATIVE (NEGATIVE) 02/22/22 13:06 Urine Cocaine Screen NEGATIVE (NEGATIVE) 02/22/22 13:06 U Cannabinoids Screen NEGATIVE (NEGATIVE) 02/22/22 13:06 ABX Reporting Has patient been on IV antibiotics over the past 48 hours?: No
--- NOTE | 2022-02-24 08:02 | XRAY Report ---
PROCEDURE: Chest 1 View X-Ray INDICATIONS: dyspnea, hypoxia, ? fluid overload TECHNIQUE: One view of the chest was acquired. COMPARISON: Rib radiographs 02/22/2022 FINDINGS: Surgical changes and devices: A cardiac pacemaker is seen with pulse generator in the left chest.. Lungs and pleura: Small bilateral pleural effusions with atelectasis or consolidations of the lung ba ses. Prominence of the central pulmonary vasculature is again seen. Mediastinum: Extensive calcifications are again seen projecting over the upper mediastinum. The heart is enlarged. Bones and chest wall: No suspicious bony lesions. Overlying soft tissues appear unremarkable. Raquel re degenerative changes in the left glenohumeral joint with remodeling of the articular surfaces. IMPRESSION: Cardiomegaly with prominent pulmonary vasculature and small bilateral pleural effusions is most likel y secondary to congestive heart failure. Reviewed by: Del Harvey MD on 02/24/2022 8:01 AM PDT Approved by: Del Harvey MD on 02/24/2022 8:01 AM PDT Station ID: [id number]
[2022-02-24] MEDS: INSULIN REGULAR HUMAN 300 UNIT/3 ML VIAL SUBQ SCH ×4 (08:20→20:25)
--- NOTE | 2022-02-24 08:36 | Ultrasound Report ---
COMPLETE ULTRASOUND OF LEFT BREAST AND AXILLA: 02/23/2022 CLINICAL: Diagnostic screening. Pt. has left breast firmness... pedro. lt lateral breast. Pt. experienc ed fall/ trauma on February 13 and had large hematomas across chest per nurse. No prior exams were available for comparison. Color flow and real-time ultrasound of the left breast four quadrants, retroareolar, and axilla trevor ons were performed. Donato scale images of the real-time examination were reviewed. There is a benign 11.2 cm x 11 cm x 5.7 cm oval fluid collection with a septated internal wall in the left breast upper outer aspect. This oval fluid collection is anechoic and hypoechoic with a well-d efined boundary and posterior acoustic enhancement. This correlates as palpated and with the history of prior trauma. Color flow imaging demonstrates that there is no vascularity present. IMPRESSION: BENIGN There is no sonographic evidence of malignancy. The 11.2 cm x 11 cm x 5.7 cm oval fluid collection in the left breast is consistent with a hematoma a nd is benign. Recommend clinical correlation and follow up. Aspiration could be performed for sympto matic relief if indicated clinically. This exam was interpreted at Station ID: [id number]. Electronically Signed By: Del Harvey M.D. ar/:02/23/2022 16:30:46 Ultrasound BI-RADS: 2 Benign BI-RADS CATEGORY: (2) - 2 Unspecified - other recall n/a LATERALITY: (B)
[2022-02-24] MEDS: ASPIRIN CHEW 81 MG TABLET PO SCH (08:51)
[2022-02-24] MEDS: DIGOXIN 125 MCG TABLET PO SCH (08:51)
[2022-02-24] MEDS: lisinopriL 20 MG TABLET PO SCH ×2 (08:52→20:25)
[2022-02-24] MEDS: hydrALAZINE 25 MG TABLET PO SCH ×2 (08:52→20:25)
[2022-02-24] MEDS: METOPROLOL SUCCINATE 50 MG TABLET PO SCH ×2 (08:53→20:25)
[2022-02-24 10:11] LABS: ESTIMATED AVERAGE GLUCOSE 180 mg/dL (70-100); HEMOGLOBIN A1c% 7.9 % (4.27-6.07)
[2022-02-24] MEDS: ATORVASTATIN 10 MG TABLET PO SCH (20:25)
[2022-02-25] MEDS: SODIUM CHLORIDE FLUSH 0.9% 10 ML SYRINGE IVP SCH ×4 (01:34→20:53)
[2022-02-25 04:58] LABS: CALCIUM 8.8 mg/dL (8.5-10.3); CREATININE 1.3 mg/dL (0.4-1.0); POTASSIUM 3.9 mmol/L (3.5-5.0)
[2022-02-25] MEDS: PANTOPRAZOLE 40 MG TABLET PO SCH (06:14)
[2022-02-25] MEDS: FUROSEMIDE 40 MG/4 ML VIAL IVP SCH (06:14)
[2022-02-25] MEDS: LEVOTHYROXINE 125 MCG TABLET PO SCH (06:14)
[2022-02-25 06:29] LABS: BASOPHILS % (AUTO) 0.3 %; EOSINOPHILS # (AUTO) 0.1 10^3/uL (0.0-0.7); EOSINOPHILS % (AUTO) 1.4 %; HCT - HEMATOCRIT 27.5 % (37.0-47.0); HGB - HEMOGLOBIN 8.4 g/dL (12.0-16.0); LYMPHOCYTES # (AUTO) 1.3 10^3/uL (1.5-3.5); MEAN CORPUSCULAR HEMOGLOBIN 27.2 pg (27.0-31.0); MEAN CORPUSCULAR HGB CONC 30.5 g/dL (32.0-36.0); MEAN PLATELET VOLUME 10.1 fL (7.9-10.8); MONOCYTES # (AUTO) 0.7 10^3/uL (0.0-1.0); MONOCYTES % (AUTO) 8.4 %; NEUTROPHILS # (AUTO) 6.5 10^3/uL (1.5-6.6); NEUTROPHILS % (AUTO) 74.3 %; NRBC ABSOLUTE COUNT (AUTO) 0.04 x10^3/uL; NUCLEATED RED BLOOD CELLS AUTO 0.5 /100WBC; PLT - PLATELET COUNT 342 10^3/uL (130-450); RED BLOOD COUNT 3.09 10^6/uL (4.20-5.40); RED CELL DISTRIBUTION WIDTH 19.5 % (12.0-15.0); WHITE BLOOD COUNT 8.7 x10^3/uL (4.8-10.8)
[2022-02-25] MEDS: INSULIN REGULAR HUMAN 300 UNIT/3 ML VIAL SUBQ SCH ×4 (08:00→20:53)
--- NOTE | 2022-02-25 08:19 | PROVIDER PROGRESS NOTE ---
Assessment/Plan - Problem List (1) Acute exacerbation of CHF (congestive heart failure) Qualifiers: Heart failure type: unspecified Qualified Code(s): I50.9 - Heart failure, unspecified Assessment/Plan: 02/25/22 Patient tolerated being off the BiPAP between 8 AM and 6 PM on 02/24/2022. We will attempt to keep the patient off the BiPAP during the day and on at night today 02/25/2022. IV Lasix discontinued. Lasix 40 mg p.o. daily ordered. BNP was 824 this morning. We will continue to monitor. Continue digoxin, metoprolol succinate and lisinopril. 02/24/22 Patient was more responsive/alert today. Another attempt to wean her off the BiPAP was done today. Currently on 10 L of oxygen year high flow nasal cannula with oxygen saturation in the high 90s. Continue Lasix 40 mg IV twice daily. BNP improved from 1146 down to 663. We will continue patient's medications as listed below. She is able to tolerate oral intake at this time. We will discontinue IV metoprolol. Chest x-ray done 02/24/22 morning showed cardiomegaly with prominent pulmonary vasculature and small bilateral pleural effusions most likely secondary to CHF. Next goal would be to see if patient can work with physical therapy on 02/25/22. 02/23/22 Patient is currently on the BiPAP. Lasix 40 mg IV twice daily ordered. Metoprolol tartrate 5 mg IV every 6 hours scheduled. BNP was 1146. Will monitor daily. Strict I's and O's. Cannot obtain a 2D echocardiogram because is currently unavailable at our facility Initial troponin was 22 with repeat troponin of 32. When patient is able to tolerate p.o., will resume patient's oral medications. These include: Digoxin 125 mcg p.o. daily Metoprolol succinate 50 mg p.o. twice daily Lisinopril 40 mg p.o. twice daily (2) Acute respiratory failure with hypoxia and hypercapnia Assessment/Plan: Multifactorial secondary to CHF exacerbation and obstructive sleep apnea. Patient is currently on a BiPAP. Will wean as tolerated. CHF exacerbation being treated as outlined above. (3) Hypertension Assessment/Plan: At time of admission patient's systolic blood pressure was 219. This has since improved. Systolic blood pressure currently fluctuates between 120s and 150s. On metoprolol 5 mg IV every 6 hours scheduled. On hydralazine 10 mg IV every 4 hours as needed for systolic blood pressure greater than 160. On Lasix 40 mg IV twice daily. When patient is able to tolerate oral medications will resume lisinopril, diltiazem and metoprolol succinate. (4) Contusion, chest wall Qualifiers: Encounter type: initial encounter Assessment/Plan: It was an unwitnessed fall. She has extensive bruising across her chest/breast area as a result. CT head done 02/22/2022 showed no acute intracranial abnormality. Chest and rib x-ray showed cardiomegaly with suggested pulmonary edema. Extensive mediastinal calcifications which may reflect granulomatous change No rib fractures were noticed. Ultrasound of the left breast ordered due to firmness on palpation. (5) History of atrial flutter Assessment/Plan: Currently rate controlled. Currently on metoprolol tartrate 5 mg every 6 hours scheduled. When patient is able to tolerate oral medications will resume her home medications. This include metoprolol succinate 50 mg p.o. twice daily, diltiazem 60 mg p.o. daily and digoxin 125 mcg p.o. daily. On a baby aspirin daily. (6) CHELITA (obstructive sleep apnea) Assessment/Plan: Patient uses a CPAP at night. Currently on the BiPAP intermittently. (7) Type 2 diabetes mellitus, without long-term current use of insulin Qualifiers: Diabetes mellitus complication status: without complication Qualified Code(s): E11.9 - Type 2 diabetes mellitus without complications Assessment/Plan: Accu-Cheks before every meal at bedtime. Sliding scale insulin. We will check hemoglobin A1c in the morning. (8) Hematoma of left breast Assessment/Plan: Secondary to contusion following fall at home. It was an unwitnessed fall. Ultrasound of the breast done 02/23/22 showed a hematoma measuring 11.2 x 5.7 x 11 cm. Hemoglobin this morning was 8.8. Will repeat hemoglobin in the afternoon and address accordingly. Lovenox for DVT prophylaxis discontinued. (9) Anemia Qualifiers: Anemia type: unspecified type Qualified Code(s): D64.9 - Anemia, unspecified Assessment/Plan: Hemoglobin was stable at 8.4. Patient has a large left breast hematoma following fall at home. We will monitor H&H closely. (10) Hypothyroidism Assessment/Plan: On Synthroid 125 mcg p.o. daily AC (12) GERD (gastroesophageal reflux disease) Assessment/Plan: Protonix 40 mg p.o. daily AC. (4) Contusion, chest wall Qualifiers: Encounter type: initial encounter (7) Type 2 diabetes mellitus, without long-term current use of insulin Qualifiers: Diabetes mellitus complication status: without complication Qualified Code(s): E11.9 - Type 2 diabetes mellitus without complications (9) Anemia Qualifiers: Anemia type: unspecified type Qualified Code(s): D64.9 - Anemia, unspecified - Current Meds Current Meds: Current Medications Generic Name Dose Route Start Last Admin Trade Name Freq PRN Reason Stop Dose Admin Acetaminophen 650 mg 02/22/22 16:08 02/23/22 18:30 Acetaminophen 325 Mg Tablet PO 650 mg Q4HR PRN Administration Pain 1 to 4, or Fever Aspirin 81 mg 02/23/22 09:00 02/24/22 08:51 Aspirin Chew 81 Mg Tablet PO 81 mg DAILY PANDA Administration Atorvastatin Calcium 20 mg 02/23/22 21:00 02/24/22 20:25 Atorvastatin 10 Mg Tablet PO 20 mg QPM PANDA Administration Digoxin 125 mcg 02/23/22 09:00 02/24/22 08:51 Digoxin 125 Mcg Tablet PO 125 mcg DAILY PANDA Administration Diltiazem HCl 60 mg 02/23/22 09:00 02/24/22 08:51 Diltiazem 60 Mg Tablet PO 60 mg DAILY PANDA Administration Furosemide 40 mg 02/23/22 09:00 02/25/22 06:14 Furosemide 40 Mg/4 Ml Vial IVP 40 mg BIDDIURETIC PANDA Administration Hydralazine HCl 50 mg 02/23/22 09:00 02/24/22 20:25 Hydralazine 25 Mg Tablet PO 50 mg BID PANDA Administration Insulin Human Regular 2 - 10 unit 02/23/22 08:00 02/25/22 08:00 Insulin Regular Human 300 Unit/3 Ml Vial SUBQ Not Given ACHS@0800,1200,1700,2100 [facility] Protocol Levothyroxine Sodium 125 mcg 02/24/22 07:00 02/25/22 06:14 Levothyroxine 125 Mcg Tablet PO 125 mcg QDAC PANDA Administration Lisinopril 40 mg 02/23/22 09:00 02/24/22 20:25 Lisinopril 20 Mg Tablet PO 40 mg BID PANDA Administration Metoprolol Succinate 50 mg 02/23/22 09:00 02/24/22 20:25 Metoprolol Succinate 50 Mg Tablet PO 50 mg BID PANDA Administration Oxycodone HCl 5 mg 02/22/22 16:08 02/24/22 21:57 Oxycodone 5 Mg Tablet PO 5 mg Q4HR PRN Administration Pain 5 to 7 Pantoprazole Sodium 40 mg 02/23/22 09:00 02/25/22 06:14 Pantoprazole 40 Mg Tablet PO 40 mg QDAC PANDA Administration Sodium Chloride 10 ml 02/22/22 16:08 02/23/22 14:23 Sodium Chloride Flush 0.9% 10 Ml Syringe IVP 10 ml PRN PRN Administration NEEDED PER PROVIDER ORDERS Sodium Chloride 10 ml 02/22/22 17:00 02/25/22 01:34 Sodium Chloride Flush 0.9% 10 Ml Syringe IVP 10 ml 0100,0900,1700 PANDA Administration - Lab Result Fish Bone Diagrams: 02/25/22 06:09 02/25/22 04:27 - Additional Planning My Orders: My Active Orders 02/26/22 05:00 BMP - BASIC METABOLIC PANEL [CHEM] DAILYLAB BNP - B-NATRIURETIC PEPTIDE [IAI] DAILYLAB CBC - COMP BLD CT W/AUTO DIFF [HEME] DAILYLAB 02/26/22 09:00 Furosemide [Lasix] 40 mg PO DAILY 02/27/22 05:00 BMP - BASIC METABOLIC PANEL [CHEM] DAILYLAB BNP - B-NATRIURETIC PEPTIDE [IAI] DAILYLAB CBC - COMP BLD CT W/AUTO DIFF [HEME] DAILYLAB 02/28/22 05:00 BMP - BASIC METABOLIC PANEL [CHEM] DAILYLAB BNP - B-NATRIURETIC PEPTIDE [IAI] DAILYLAB CBC - COMP BLD CT W/AUTO DIFF [HEME] DAILYLAB Subjective - Subjective Patient Reports: Other (Patient was more awake and alert today. She appears to improve slightly daily. She denied any complaints. She was eager to have the BiPAP machine taken off.) Objective Vital Signs: Vital Signs - 24 hr 02/24/22 02/24/22 02/24/22 08:50 08:51 09:00 Temperature 36.2 C L Heart Rate 69 Heart Rate [ Apical] Heart Rate [ 69 Monitoring electrodes] Respiratory 16 Rate Blood Pressure 126/70 Blood Pressure 134/76 H [Right Brachial artery] O2 Saturation 97 02/24/22 02/24/22 02/24/22 09:10 10:00 11:00 Temperature 36.4 C L 36.5 C Heart Rate 95 Heart Rate [ Apical] Heart Rate [ 69 76 Monitoring electrodes] Respiratory 22 18 Rate Blood Pressure Blood Pressure 129/67 116/62 [Right Brachial artery] O2 Saturation 95 93 02/24/22 02/24/22 02/24/22 12:00 13:00 14:00 Temperature 36.4 C L Heart Rate 76 Heart Rate [ 14 L Apical] Heart Rate [ 76 69 69 Monitoring electrodes] Respiratory 14 16 14 Rate Blood Pressure Blood Pressure 121/65 116/54 L 131/76 H [Right Brachial artery] O2 Saturation 93 94 94 02/24/22 02/24/22 02/24/22 14:45 15:00 16:00 Temperature 36.6 C Heart Rate 65 Heart Rate [ Apical] Heart Rate [ 69 69 Monitoring electrodes] Respiratory 141 H 16 Rate Blood Pressure Blood Pressure 116/63 115/101 H [Right Brachial artery] O2 Saturation 91 L 93 02/24/22 02/24/22 02/24/22 17:00 17:55 18:00 Temperature 36.7 C 36.7 C Heart Rate 69 Heart Rate [ Apical] Heart Rate [ 76 69 Monitoring electrodes] Respiratory 15 13 Rate Blood Pressure Blood Pressure 127/65 133/70 H [Right Brachial artery] O2 Saturation 92 99 02/24/22 02/24/22 02/24/22 19:00 20:00 21:00 Temperature 36.9 C 36.8 C Heart Rate Heart Rate [ Apical] Heart Rate [ 69 69 83 Monitoring electrodes] Respiratory 16 16 25 H Rate Blood Pressure Blood Pressure 107/80 133/74 H 123/72 [Right Brachial artery] O2 Saturation 99 100 98 02/24/22 02/24/22 02/25/22 22:00 23:00 00:00 Temperature Heart Rate 69 Heart Rate [ Apical] Heart Rate [ 69 69 69 Monitoring electrodes] Respiratory 12 12 11 L Rate Blood Pressure Blood Pressure 116/57 L 92/52 L 95/53 L [Right Brachial artery] O2 Saturation 92 96 95 02/25/22 02/25/22 02/25/22 01:00 02:00 03:00 Temperature 36.7 C 36.7 C 36.7 C Heart Rate 69 Heart Rate [ Apical] Heart Rate [ 69 69 69 Monitoring electrodes] Respiratory 10 L 14 14 Rate Blood Pressure Blood Pressure 109/60 102/56 L 119/75 [Right Brachial artery] O2 Saturation 93 96 96 02/25/22 02/25/22 02/25/22 04:00 05:00 05:39 Temperature 36.7 C 36.7 C Heart Rate 69 Heart Rate [ Apical] Heart Rate [ 69 69 Monitoring electrodes] Respiratory 11 L 16 Rate Blood Pressure Blood Pressure 129/71 116/68 [Right Brachial artery] O2 Saturation 98 92 02/25/22 02/25/22 02/25/22 06:00 07:00 07:38 Temperature 36.7 C 36.8 C Heart Rate 85 Heart Rate [ Apical] Heart Rate [ 69 69 Monitoring electrodes] Respiratory 10 L 11 L Rate Blood Pressure Blood Pressure 113/62 126/68 [Right Brachial artery] O2 Saturation 96 96 02/25/22 02/25/22 08:00 08:01 Temperature 36.9 C Heart Rate 83 Heart Rate [ Apical] Heart Rate [ 69 Monitoring electrodes] Respiratory 14 21 Rate Blood Pressure Blood Pressure 118/66 [Right Brachial artery] O2 Saturation 95 94 Oxygen O2 Source BIPAP Oxygen Flow Rate 4 I&O (Last 24 Hrs): Intake and Output Totals x24h 02/23/22 02/24/22 02/25/22 23:59 23:59 23:59 Intake Total 320.000 500 Output Total 2920 7445 415 Balance -2600.000 -1175 -415 General: Alert, Oriented x3, Mild distress HEENT: PERRLA, EOMI Neck: Supple, No JVD Neuro: Alert, Oriented Times 3 Cardiovascular: Regular rate, Normal S1, Normal S2, No murmurs Respiratory: Chest non-tender, No respiratory distress, Breath sounds nml Abdomen: Normal bowel sounds, Soft, No tenderness Extremities: No clubbing, No cyanosis, Other (trace edema) Skin: No rashes Comments/Notes: bruise across breast - Results Results: Laboratory Results WBC 8.7 x10^3/uL (4.8-10.8) 02/25/22 06:09 RBC 3.09 10^6/uL (4.20-5.40) L 02/25/22 06:09 Hgb 8.4 g/dL (12.0-16.0) L 02/25/22 06:09 Hct 27.5 % (37.0-47.0) L 02/25/22 06:09 MCV 89.0 fL (81.0-99.0) 02/25/22 06:09 MCH 27.2 pg (27.0-31.0) 02/25/22 06:09 MCHC 30.5 g/dL (32.0-36.0) L 02/25/22 06:09 RDW 19.5 % (12.0-15.0) H 02/25/22 06:09 Plt Count 342 10^3/uL (130-450) 02/25/22 06:09 MPV 10.1 fL (7.9-10.8) 02/25/22 06:09 Reticulocyte % (Auto) 4.38 % (0.5-2.3) H 02/22/22 21:18 Neut # (Auto) 6.5 10^3/uL (1.5-6.6) 02/25/22 06:09 Lymph # (Auto) 1.3 10^3/uL (1.5-3.5) L 02/25/22 06:09 [place] # (Auto) 0.7 10^3/uL (0.0-1.0) 02/25/22 06:09 Eos # (Auto) 0.1 10^3/uL (0.0-0.7) 02/25/22 06:09 Baso # (Auto) 0.0 10^3/uL (0.0-0.1) 02/25/22 06:09 Absolute Nucleated RBC 0.04 x10^3/uL 02/25/22 06:09 Nucleated RBC % 0.5 /100WBC 02/25/22 06:09 Absolute Retic 0.144 10^6/uL (0.020-0.110) H 02/22/22 21:18 PT 12.7 secs (9.9-12.6) H 02/22/22 12:51 INR 1.1 (0.8-1.2) 02/22/22 12:51 Bld Gas Analysis Time 0505 02/23/22 04:55 Sample Site RIGHT RADIAL 02/23/22 04:55 ABG pH 7.39 (7.35-7.45) 02/23/22 04:55 ABG pCO2 44 mmHg (34-45) 02/23/22 04:55 ABG pO2 76 mmHg (80-100) L 02/23/22 04:55 ABG HCO3 25.6 mmol/L (22.0-26.0) 02/23/22 04:55 ABG Total CO2 26.9 MMOL/L (21.0-29.0) 02/23/22 04:55 ABG O2 Saturation 94 % (94-98) 02/23/22 04:55 ABG Base Excess 0.4 mmol/L (-2.0-3.0) 02/23/22 04:55 [place] Test POSITIVE 02/23/22 04:55 Respiration Rate 16 b/min 02/23/22 04:55 Room Air YES 02/22/22 12:22 O2 Delivery Device BiPAP 02/23/22 04:55 FiO2 35.00 02/23/22 04:55 PEEP 12 cmH2O 02/23/22 04:55 EPAP 5 cmH2O 02/22/22 18:45 IPAP 5 cmH2O 02/23/22 04:55 Sodium 138 mmol/L (135-145) 02/25/22 04:27 Potassium 3.9 mmol/L (3.5-5.0) 02/25/22 04:27 Chloride 100 mmol/L (101-111) L 02/25/22 04:27 Carbon Dioxide 28 mmol/L (21-32) 02/25/22 04:27 Anion Gap 10.0 (6-13) 02/25/22 04:27 BUN 24 mg/dL (6-20) H 02/25/22 04:27 Creatinine 1.3 mg/dL (0.4-1.0) H 02/25/22 04:27 Estimated GFR (MDRD) 48 (>89) L 02/25/22 04:27 Glucose 118 mg/dL (70-100) H 02/25/22 04:27 POC Whole Bld Glucose 175 mg/dL (70 - 100) H 02/24/22 19:54 Estimat Average Glucose 180 mg/dL (70-100) H 02/24/22 04:10 Hemoglobin A1c % 7.9 % (4.27-6.07) H 02/24/22 04:10 Lactic Acid 1.2 mmol/L (0.5-2.2) 02/22/22 11:48 Calcium 8.8 mg/dL (8.5-10.3) 02/25/22 04:27 Phosphorus 4.0 mg/dL (2.5-4.6) 02/23/22 04:55 Magnesium 1.9 mg/dL (1.7-2.8) 02/23/22 04:55 Iron 39 ug/dL (28-170) 02/22/22 21:18 TIBC 379 ug/dL (250-450) 02/22/22 21:18 % Saturation 10 % (20-50) L 02/22/22 21:18 Transferrin 271 mg/dL (192-382) 02/22/22 21:18 Ferritin 27.0 ng/mL (11.0-306.8) 02/22/22 21:18 Total Bilirubin 2.3 mg/dL (0.2-1.0) H 02/22/22 12:51 AST 15 IU/L (10-42) 02/22/22 12:51 ALT 14 IU/L (10-60) 02/22/22 12:51 Alkaline Phosphatase 119 IU/L (42-121) 02/22/22 12:51 Ammonia 15.1 umol/L (7-35) 02/23/22 05:55 Lactate Dehydrogenase 227 IU/L (91-225) H 02/22/22 21:18 Troponin I High Sens 45.0 ng/L (2.3-14.8) H* 02/23/22 16:04 B-Natriuretic Peptide 824 pg/mL (5-100) H 02/25/22 06:09 Total Protein 6.8 g/dL (6.7-8.2) 02/22/22 12:51 Albumin 3.3 g/dL (3.2-5.5) 02/22/22 12:51 Globulin 3.5 g/dL (2.1-4.2) 02/22/22 12:51 Albumin/Globulin Ratio 0.9 (1.0-2.2) L 02/22/22 12:51 Lipase 53 U/L (22-51) H 02/22/22 12:51 Vitamin B12 426 pg/mL (180-914) 02/22/22 21:18 TSH 1.23 uIU/mL (0.34-5.60) 02/23/22 05:55 Urine Color YELLOW 02/22/22 13:06 Urine Clarity CLEAR (CLEAR) 02/22/22 13:06 Urine pH 5.5 PH (5.0-7.5) 02/22/22 13:06 Ur Specific [place] >=1.030 (1.002-1.030) H 02/22/22 13:06 Urine Protein 30 mg/dL (NEGATIVE) H 02/22/22 13:06 Urine Glucose (UA) NEGATIVE mg/dL (NEGATIVE) 02/22/22 13:06 Urine Ketones NEGATIVE mg/dL (NEGATIVE) 02/22/22 13:06 Urine Occult Blood NEGATIVE (NEGATIVE) 02/22/22 13:06 Urine Nitrite NEGATIVE (NEGATIVE) 02/22/22 13:06 Urine Bilirubin NEGATIVE (NEGATIVE) 02/22/22 13:06 Urine Urobilinogen 2 E.U./dL (NORMAL) H 02/22/22 13:06 Ur Leukocyte Esterase TRACE (NEGATIVE) H 02/22/22 13:06 Urine RBC 0-5 /HPF (0-5) 02/22/22 13:06 Urine WBC 6-10 /HPF (0-5) H 02/22/22 13:06 Ur Squamous Epith Cells RARE Squamous (<= Few) 02/22/22 13:06 Urine Bacteria Many /HPF (None Seen) H 02/22/22 13:06 Ur Microscopic Review INDICATED 02/22/22 13:06 Urine Culture Comments INDICATED 02/22/22 13:06 Nasal Adenovirus (PCR) NOT DETECTED 02/22/22 12:15 Nasal B. parapertussis DNA (PCR) NOT DETECTED 02/22/22 12:15 Nasal Coronavir 229E PCR NOT DETECTED 02/22/22 12:15 Nasal Coronavir HKU1 PCR NOT DETECTED 02/22/22 12:15 Nasal Coronavir NL63 PCR NOT DETECTED 02/22/22 12:15 Nasal Coronavir OC43 PCR NOT DETECTED 02/22/22 12:15 Nasal Enterovir/Rhinovir PCR NOT DETECTED 02/22/22 12:15 Nasal Influenza B PCR NOT DETECTED 02/22/22 12:15 Nasal Influenza A PCR NOT DETECTED 02/22/22 12:15 Nasal Parainfluen 1 PCR NOT DETECTED 02/22/22 12:15 Nasal Parainfluen 2 PCR NOT DETECTED 02/22/22 12:15 Nasal Parainfluen 3 PCR NOT DETECTED 02/22/22 12:15 Nasal Parainfluen 4 PCR NOT DETECTED 02/22/22 12:15 Nasal RSV (PCR) NOT DETECTED 02/22/22 12:15 Nasal Screen MRSA (PCR) NEGATIVE (NEGATIVE) 02/22/22 21:15 Nasal B.pertussis DNA PCR NOT DETECTED 02/22/22 12:15 Nasal C.pneumoniae (PCR) NOT DETECTED 02/22/22 12:15 [place] Human Metapneumo PCR NOT DETECTED 02/22/22 12:15 Nasal M.pneumoniae (PCR) NOT DETECTED 02/22/22 12:15 Nasal SARS-CoV-2 (PCR) NOT DETECTED 02/22/22 12:15 Last Dose Date UNKNOWN 02/22/22 12:51 Last Dose Time UNKNOWN 02/22/22 12:51 Digoxin 0.9 ng/mL 02/22/22 12:51 Urine Opiates Screen NEGATIVE (NEGATIVE) 02/22/22 13:06 Ur Oxycodone Screen NEGATIVE (NEGATIVE) 02/22/22 13:06 Urine Methadone Screen NEGATIVE (NEGATIVE) 02/22/22 13:06 Ur Propoxyphene Screen NEGATIVE (NEGATIVE) 02/22/22 13:06 Ur Barbiturates Screen NEGATIVE (NEGATIVE) 02/22/22 13:06 Ur Tricyclics Screen NEGATIVE (NEGATIVE) 02/22/22 13:06 Ur Phencyclidine Scrn NEGATIVE (NEGATIVE) 02/22/22 13:06 Ur Amphetamine Screen NEGATIVE (NEGATIVE) 02/22/22 13:06 U Methamphetamines Scrn NEGATIVE (NEGATIVE) 02/22/22 13:06 U Benzodiazepines Scrn NEGATIVE (NEGATIVE) 02/22/22 13:06 Urine Cocaine Screen NEGATIVE (NEGATIVE) 02/22/22 13:06 U Cannabinoids Screen NEGATIVE (NEGATIVE) 02/22/22 13:06 ABX Reporting Has patient been on IV antibiotics over the past 48 hours?: No
[2022-02-25] MEDS: ASPIRIN CHEW 81 MG TABLET PO SCH (09:03)
[2022-02-25] MEDS: DIGOXIN 125 MCG TABLET PO SCH (09:04)
[2022-02-25] MEDS: hydrALAZINE 25 MG TABLET PO SCH (09:04)
[2022-02-25] MEDS: METOPROLOL SUCCINATE 50 MG TABLET PO SCH ×2 (09:04→20:52)
[2022-02-25] MEDS: lisinopriL 20 MG TABLET PO SCH ×2 (09:04→20:53)
[2022-02-25] MEDS: ATORVASTATIN 10 MG TABLET PO SCH (20:52)
[2022-02-25] MEDS ORDERED: hydrALAZINE 25 MG TABLET PO SCH (21:00)
--- NOTE | 2022-02-25 21:08 | PROVIDER PROGRESS NOTE ---
Green End Worker Note - Green End Worker Note Green End Worker Note: Since there is no Echo service available at this hospital since 02/05/2022, I was asked to perform a bedside 2D Echo to evaluate LV ejection fraction (since I am a board-certified Bath [employer]er, trained in performing and interpreting Echoes). A limited bedside Echo was done. The findings are: Moderate-severe left atrial and right atrial enlargement. Massive right ventricular enlargement with poor RV function. A pacemaker is seen in the right heart. LV size is normal with moderate global hypokinesis but severe apical hypokinesis, LVEF 25%. Brief Doppler exam was done that shows moderate tricuspid regurgitation, but a PA pressure could not be calculated by the CW Doppler. She also has a small loculated posterior pericardial effusion. PE: She is sleepy but awakens and answers appropriately. BP now 106/70, HR paced at 60-70 Chest clear anteriorly, L breast bruise has decreased, Heart is irreg w/ systolic murmur The chart was reviewed including H&P and vital signs, labs and meds, for plan and med adjustments: 1) Acute on chronic systolic heart failure The LVEF is 25% which corresponds with the elevated BNP of 1000. She had some improvement of BNP on iv bid Lasix when BNP went to 600, and it is now is back up to 800. Her fluid balance has been -2000L daily, but today only -300cc. Lasix IV twice daily today was stopped and she was put back on her home dose of Lasix 40 mg once daily only. Plan: Continue Lasix IV twice daily, not po Lasix yet, since she still has a pericardial effusion, new bilateral pleural effusions on chest x-ray. Watch her BUN/creatinine carefully. Obtain an albumin level and she may need 1 dose of IV albumin. Continue beta-rod and Lisinopril. Start Spironolactone. Her daily oral liquid intake is only 500 cc, therefore no fluid restriction order needs to be written. 2) HTN, now she has "soft" BPs She presented with systolic blood pressures of 210 and is now running blood pressures of 107-110, on her home meds. This suggest that she was not taking her medications at home which had caused uncontrolled hypertension and this CHF exacerbation. Medication noncompliance was discussed in the H&P. Plan: Stop Hydralazine. Decrease Lisinopril to just once daily in the morning Continue with the beta-rod Stop the Cardizem Perhaps she is too lightheaded or fatigued to get up and start working with PT, because of these "soft" blood pressures. 3) Afib Her heart rate at admission was atrial fib-flutter at 90-100 and now telemetry shows that she is ventricular paced at rates of 60, on all of her home meds. The Dig level was not toxic. She is not on an anticoagulant despite having a CHADS score of 4 (CHF, HTN, Age>75 and Diabetes). There is no discussion about why she is not on an anticoagulant, possibly the daughters do not know. Plan: Digoxin is OK for rate control since her blood pressure is low. Stop the Cardizem and continue with the beta-rod for rate control Continue aspirin Determined from the daughters if they know why she is not on an anticoagulant which would be preferred for her, for stroke prevention. Start Eliquis if using a blood thinner has no contra-indications, and then could stop aspirin. 4) Hx of CHELITA Her last blood gas shows saturations of 96% on BiPAP with supplemental oxygen. Plan: O2 saturations can be 90% or above, they did not need to be as high as 96%. She may need some elevation of CO2 for her respiratory drive, and she may be over- somnolent by getting too much oxygen. 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 I cannot measure the PA pressure however Plan: Continue with Lasix, eventually decreasing to a p.o. dose. Continue with CPAP and supplemental O2 Order Incentive Spirometry 6) Pacemaker Patient does not know if she has a plain pacemaker or a defibrillator. With this poor LV ejection fraction, her pacemaker may indeed be a prophylactic defibrillator. Plan: Asked the 2 daughters if she has a card in her wallet or in her belongings, that describe the type of pacemaker she has, make a copy the card for her [place] chart. If she has not had a pacemaker interrogation in 6 months or more, an interrogation could be done by the company player services representative even while hospitalized, to assure proper settings and function. 7) CKD With her crteat of 1.2-1.3, and "soft" BPs, unfortunately she is becoming intravascularly volume depleted but is still total body volume overloaded. She needs continued moderate diuresis but not overdiuresis. Plan: Obtain albumin level to see if IV albumin may help her retain intravascular volume and prevent third spacing. Continue with iv diuresis for several more days Avoid nephrotoxins. 8) Anemia Her iron levels and iron stores were adequate but hemoglobin runs 8-9. Plan: Obtain B12 and folate levels and replace if low 9) Medication Non-compliance This is suspected to be the cause of her CHF exacerbation since her admission blood pressure and heart rate were elevated. Plan: The patient will need at least a Home Health RN to check that she is taking her medications right OR the family needs to be responsible for dosing the pt her medicines. Dietary consult regarding salt intake, discussion should be with whoever her meal maker is. CRITICAL CARE TIME SPENT (performing Echo, chart and medication review, new med orders and documentation): 50 min.
[2022-02-26 04:29] LABS: BASOPHILS % (AUTO) 0.5 %; EOSINOPHILS # (AUTO) 0.2 10^3/uL (0.0-0.7); EOSINOPHILS % (AUTO) 2.4 %; HCT - HEMATOCRIT 27.5 % (37.0-47.0); HGB - HEMOGLOBIN 8.3 g/dL (12.0-16.0); LYMPHOCYTES # (AUTO) 1.5 10^3/uL (1.5-3.5); LYMPHOCYTES % (AUTO) 20.3 %; MEAN CORPUSCULAR HEMOGLOBIN 26.7 pg (27.0-31.0); MEAN CORPUSCULAR HGB CONC 30.2 g/dL (32.0-36.0); MEAN CORPUSCULAR VOLUME 88.4 fL (81.0-99.0); MEAN PLATELET VOLUME 9.7 fL (7.9-10.8); MONOCYTES # (AUTO) 0.7 10^3/uL (0.0-1.0); MONOCYTES % (AUTO) 9.5 %; NEUTROPHILS % (AUTO) 66.8 %; NRBC ABSOLUTE COUNT (AUTO) 0.04 x10^3/uL; NUCLEATED RED BLOOD CELLS AUTO 0.5 /100WBC; PLT - PLATELET COUNT 309 10^3/uL (130-450); RED BLOOD COUNT 3.11 10^6/uL (4.20-5.40); RED CELL DISTRIBUTION WIDTH 19.6 % (12.0-15.0); WHITE BLOOD COUNT 7.5 x10^3/uL (4.8-10.8)
[2022-02-26 04:33] LABS: CALCIUM, IONIZED 1.12 mmol/L (1.15-1.33); VBG PH 7.435 (7.31-7.41)
[2022-02-26 04:36] LABS: ALBUMIN 2.7 g/dL (3.2-5.5); CALCIUM 8.8 mg/dL (8.5-10.3); CREATININE 1.4 mg/dL (0.4-1.0); POTASSIUM 3.9 mmol/L (3.5-5.0)
[2022-02-26 04:46] LABS: MAGNESIUM 1.8 mg/dL (1.7-2.8); PHOSPHORUS 3.5 mg/dL (2.5-4.6)
[2022-02-26 05:20] LABS: FOLATE 10.69 ng/mL (5.90 - >24.8)
[2022-02-26] MEDS: FUROSEMIDE 40 MG/4 ML VIAL IVP SCH ×2 (06:01→14:24)
[2022-02-26] MEDS: SODIUM CHLORIDE FLUSH 0.9% 10 ML SYRINGE IVP PRN ×2 (06:01→14:24)
[2022-02-26] MEDS: PANTOPRAZOLE 40 MG TABLET PO SCH (06:02)
[2022-02-26] MEDS: LEVOTHYROXINE 125 MCG TABLET PO SCH (06:02)
[2022-02-26 06:22] LABS: ABG HCO3 30.8 mmol/L (22.0-26.0); ABG OXYGEN SATURATION 90 % (94-98); ABG PCO2 52 mmHg (34-45); ABG PH 7.39 (7.35-7.45); ABG PO2 61 mmHg (80-100); ABG TCO2 32.4 MMOL/L (21.0-29.0); ALLEN TEST POSITIVE
--- NOTE | 2022-02-26 07:34 | PROVIDER PROGRESS NOTE ---
Assessment/Plan - Problem List (1) Acute exacerbation of CHF (congestive heart failure) Qualifiers: Heart failure type: unspecified Qualified Code(s): I50.9 - Heart failure, unspecified Assessment/Plan: 02/26/22 A limited bedside 2D echocardiogram done by my colleague Dr. Che overnight Moderate-severe left atrial and right atrial enlargement. Massive right ventricular enlargement with poor RV function. A pacemaker is seen in the right heart. LV size is normal with moderate global hypokinesis but severe apical hypokinesis, LVEF 25%. Brief Doppler exam was done that shows moderate tricuspid regurgitation, but a PA pressure could not be calculated by the CW Doppler. She also has a small loculated posterior pericardial effusion. I received records from [facility] today 02/26/22 which showed on June 27, 2021 patient had a 2D echocardiogram which showed normal global and regional left ventricular systolic function. Left systolic function was hyperdynamic. Ejection fraction was estimated at 80%. There was mild to moderate concentric left ventricular hypertrophy. Furthermore in 2018 her EF was between 50 and 55%. Lasix 40 mg IV twice daily was resumed since she still has a pericardial effusion, new bilateral pleural effusions on chest x-ray. Diltiazem was discontinued. Spironolactone 25mg po daily was added. Lisinopril was decreased from 40 mg p.o. twice daily down to 10 mg p.o. daily. Metoprolol succinate 50 mg p.o. twice daily was continued and digoxin was continued. We will continue to monitor patient's I/O's. She continues to be significantly BiPAP dependent. 02/25/22 Patient tolerated being off the BiPAP between 8 AM and 6 PM on 02/24/2022. We will attempt to keep the patient off the BiPAP during the day and on at night today 02/25/2022. IV Lasix discontinued. Lasix 40 mg p.o. daily ordered. BNP was 824 this morning. We will continue to monitor. Continue digoxin, metoprolol succinate and lisinopril. 02/24/22 Patient was more responsive/alert today. Another attempt to wean her off the BiPAP was done today. Currently on 10 L of oxygen year high flow nasal cannula with oxygen saturation in the high 90s. Continue Lasix 40 mg IV twice daily. BNP improved from 1146 down to 663. We will continue patient's medications as listed below. She is able to tolerate oral intake at this time. We will discontinue IV metoprolol. Chest x-ray done 02/24/22 morning showed cardiomegaly with prominent pulmonary vasculature and small bilateral pleural effusions most likely secondary to CHF. Next goal would be to see if patient can work with physical therapy on 02/25/22. 02/23/22 Patient is currently on the BiPAP. Lasix 40 mg IV twice daily ordered. Metoprolol tartrate 5 mg IV every 6 hours scheduled. BNP was 1146. Will monitor daily. Strict I's and O's. Cannot obtain a 2D echocardiogram because is currently unavailable at our facility Initial troponin was 22 with repeat troponin of 32. When patient is able to tolerate p.o., will resume patient's oral medications. These include: Digoxin 125 mcg p.o. daily Metoprolol succinate 50 mg p.o. twice daily Lisinopril 40 mg p.o. twice daily (2) Acute respiratory failure with hypoxia and hypercapnia Assessment/Plan: This is acute on chronic respiratory failure. Multifactorial secondary to CHF exacerbation (acutely). A limited bedside 2D echocardiogram done on 02/25/22 showed an ejection fraction of 25%. Patient also has history of obstructive sleep apnea/obesity hypoventilation syndrome and history of sarcoidosis. Patient is currently on the BiPAP. Her oxygen saturation drops precipitously into the mid 70s to 80s within 10 to 15 minutes of taking her off BiPAP and even on 10 L of oxygen via nasal cannula. Patient will greatly benefit from a home ventilator specifically a trilogy unit as this will help reduce hospitalizations Noninvasive ventilator required to reduce hospitalization and improve patient's health. BiPAP considered and deemed ineffective. I am ordering a noninvasive home ventilator to treat her chronic respiratory failure (3) Hypertension Assessment/Plan: At time of admission patient's systolic blood pressure was 219. This has since improved. Systolic blood pressure currently fluctuates between 120s and 150s. She is currently on Lasix 40 mg IV twice daily. Lisinopril 10 mg p.o. daily, spironolactone 25 mg p.o. daily and Metoprolol succinate 50 mg p.o. twice daily (4) Contusion, chest wall Qualifiers: Encounter type: initial encounter Assessment/Plan: It was an unwitnessed fall. She has extensive bruising across her chest/breast area as a result. CT head done 02/22/2022 showed no acute intracranial abnormality. Chest and rib x-ray showed cardiomegaly with suggested pulmonary edema. Extensive mediastinal calcifications which may reflect granulomatous change No rib fractures were noticed. Ultrasound of the left breast ordered due to firmness on palpation. (6) CHELITA (obstructive sleep apnea) Assessment/Plan: Currently on the BiPAP intermittently. (7) Type 2 diabetes mellitus, without long-term current use of insulin Qualifiers: Diabetes mellitus complication status: without complication Qualified Code(s): E11.9 - Type 2 diabetes mellitus without complications Assessment/Plan: HqA1C was 7.9. Accu-Cheks before every meal at bedtime. Sliding scale insulin. (9) Anemia Qualifiers: Anemia type: unspecified type Qualified Code(s): D64.9 - Anemia, unspecified Assessment/Plan: Secondary to contusion following a fall at home. It was an unwitnessed fall. Ultrasound of the breast done 02/23/22 showed a hematoma measuring 11.2 x 5.7 x 11 cm. Hemoglobin this morning was 8.3. Will repeat hemoglobin in the afternoon and address accordingly. Lovenox for DVT prophylaxis discontinued. (10) Hypothyroidism Assessment/Plan: On Synthroid 125 mcg p.o. daily AC (11) Hyperlipidemia Assessment/Plan: Atorvastatin 20 mg p.o. daily (12) GERD (gastroesophageal reflux disease) Assessment/Plan: Protonix 40 mg p.o. daily AC. (13) History of coronary artery disease Assessment/Plan: With stent to the LAD in 2017. She is on metoprolol succinate, lisinopril, atorvastatin, Baby aspirin (15) Pericardial effusion Assessment/Plan: Patient had history of pericardial effusion in the past for which records that she had a pericardial window done. Limited bedside 2D echocardiogram indicated some pericardial effusion on 02/25/2022 - Current Meds Current Meds: Current Medications Generic Name Dose Route Start Last Admin Trade Name Freq PRN Reason Stop Dose Admin Acetaminophen 650 mg 02/22/22 16:08 02/23/22 18:30 Acetaminophen 325 Mg Tablet PO 650 mg Q4HR PRN Administration Pain 1 to 4, or Fever Aspirin 81 mg 02/23/22 09:00 02/25/22 09:03 Aspirin Chew 81 Mg Tablet PO 81 mg DAILY PANDA Administration Atorvastatin Calcium 20 mg 02/23/22 21:00 02/25/22 20:52 Atorvastatin 10 Mg Tablet PO 20 mg QPM PANDA Administration Digoxin 125 mcg 02/23/22 09:00 02/25/22 09:04 Digoxin 125 Mcg Tablet PO 125 mcg DAILY PANDA Administration Furosemide 40 mg 02/26/22 06:00 02/26/22 06:01 Furosemide 40 Mg/4 Ml Vial IVP 40 mg BIDDIURETIC PANDA Administration Insulin Human Regular 2 - 10 unit 02/23/22 08:00 02/25/22 20:53 Insulin Regular Human 300 Unit/3 Ml Vial SUBQ Not Given ACHS@0800,1200,1700,2100 [facility] Protocol Levothyroxine Sodium 125 mcg 02/24/22 07:00 02/26/22 06:02 Levothyroxine 125 Mcg Tablet PO 125 mcg QDAC PANDA Administration Metoprolol Succinate 50 mg 02/23/22 09:00 02/25/22 20:52 Metoprolol Succinate 50 Mg Tablet PO 50 mg BID PANDA Administration Oxycodone HCl 5 mg 02/22/22 16:08 02/24/22 21:57 Oxycodone 5 Mg Tablet PO 5 mg Q4HR PRN Administration Pain 5 to 7 Pantoprazole Sodium 40 mg 02/23/22 09:00 02/26/22 06:02 Pantoprazole 40 Mg Tablet PO 40 mg QDAC PANDA Administration Sodium Chloride 10 ml 02/22/22 16:08 02/26/22 06:01 Sodium Chloride Flush 0.9% 10 Ml Syringe IVP 10 ml PRN PRN Administration NEEDED PER PROVIDER ORDERS Sodium Chloride 10 ml 02/22/22 17:00 02/25/22 20:53 Sodium Chloride Flush 0.9% 10 Ml Syringe IVP 10 ml 0100,0900,1700 PANDA Administration - Lab Result Fish Bone Diagrams: 02/27/22 04:25 02/27/22 04:25 - Additional Planning My Orders: My Active Orders 02/26/22 09:00 polyethylene glycoL 3350 [Miralax] 17 gm PO DAILY 02/27/22 05:00 BMP - BASIC METABOLIC PANEL [CHEM] DAILYLAB BNP - B-NATRIURETIC PEPTIDE [IAI] DAILYLAB CALCIUM, IONIZED ([facility]) [BG] DAILYLAB CBC - COMP BLD CT W/AUTO DIFF [HEME] DAILYLAB MAGNESIUM [CHEM] DAILYLAB PHOSPHORUS [CHEM] DAILYLAB 02/28/22 05:00 BMP - BASIC METABOLIC PANEL [CHEM] DAILYLAB BNP - B-NATRIURETIC PEPTIDE [IAI] DAILYLAB CALCIUM, IONIZED ([facility]) [BG] DAILYLAB CBC - COMP BLD CT W/AUTO DIFF [HEME] DAILYLAB MAGNESIUM [CHEM] DAILYLAB PHOSPHORUS [CHEM] DAILYLAB Subjective - Subjective Patient Reports: Other (Patient appeared to be resting comfortably in bed however when the BiPAP machine was taken off she appeared significantly dyspne ic. And the cause of 10 to 15-minute conversation her oxygen saturation dropped significantly from the high 90s into the mid 80s. She denied chest pain.) Objective Vital Signs: Vital Signs - 24 hr 02/25/22 02/25/22 02/25/22 07:38 08:00 08:01 Temperature 36.9 C Heart Rate 85 83 Heart Rate [ 69 Monitoring electrodes] Respiratory 14 21 Rate Blood Pressure Blood Pressure 118/66 [Right Brachial artery] O2 Saturation 95 94 02/25/22 02/25/22 02/25/22 09:00 09:03 10:00 Temperature Heart Rate Heart Rate [ 69 69 Monitoring electrodes] Respiratory 13 Rate Blood Pressure 130/70 Blood Pressure 130/70 107/58 L [Right Brachial artery] O2 Saturation 23 L 91 L 02/25/22 02/25/22 02/25/22 10:55 11:00 12:00 Temperature 36.9 C 37.1 C Heart Rate 89 Heart Rate [ 69 69 Monitoring electrodes] Respiratory 14 15 Rate Blood Pressure Blood Pressure 116/63 108/57 L [Right Brachial artery] O2 Saturation 98 93 02/25/22 02/25/22 02/25/22 13:00 13:09 14:00 Temperature 37.1 C 37.1 C Heart Rate 69 Heart Rate [ 69 69 Monitoring electrodes] Respiratory 13 15 Rate Blood Pressure Blood Pressure 118/67 122/67 [Right Brachial artery] O2 Saturation 95 94 02/25/22 02/25/22 02/25/22 15:00 15:01 16:00 Temperature 37.1 C 37.2 C Heart Rate 76 Heart Rate [ 69 69 Monitoring electrodes] Respiratory 14 15 Rate Blood Pressure Blood Pressure 123/67 126/69 [Right Brachial artery] O2 Saturation 95 94 02/25/22 02/25/22 02/25/22 17:00 18:00 19:00 Temperature 37.2 C 37.3 C Heart Rate 76 Heart Rate [ 69 69 69 Monitoring electrodes] Respiratory 14 16 15 Rate Blood Pressure Blood Pressure 113/57 L 119/63 118/63 [Right Brachial artery] O2 Saturation 94 96 02/25/22 02/25/22 02/25/22 20:00 21:00 22:00 Temperature 37.4 C 37.4 C Heart Rate Heart Rate [ 69 69 69 Monitoring electrodes] Respiratory 15 16 14 Rate Blood Pressure Blood Pressure 112/65 107/64 [Right Brachial artery] O2 Saturation 98 96 100 02/25/22 02/25/22 02/26/22 22:10 23:00 00:00 Temperature 36.4 C L Heart Rate 76 Heart Rate [ 69 69 Monitoring electrodes] Respiratory 13 15 Rate Blood Pressure Blood Pressure 108/63 121/69 109/63 [Right Brachial artery] O2 Saturation 99 90 L 02/26/22 02/26/22 02/26/22 01:00 02:00 03:00 Temperature 36.5 C 36.9 C 36.6 C Heart Rate 79 Heart Rate [ 69 69 69 Monitoring electrodes] Respiratory 11 L 17 13 Rate Blood Pressure Blood Pressure 117/67 104/58 L 97/55 L [Right Brachial artery] O2 Saturation 96 93 97 02/26/22 02/26/22 02/26/22 04:00 05:00 06:00 Temperature 37.0 C Heart Rate Heart Rate [ 69 69 70 Monitoring electrodes] Respiratory 12 22 29 H Rate Blood Pressure Blood Pressure 117/68 104/62 112/55 L [Right Brachial artery] O2 Saturation 98 99 94 02/26/22 07:00 Temperature Heart Rate Heart Rate [ 69 Monitoring electrodes] Respiratory 15 Rate Blood Pressure Blood Pressure 117/61 [Right Brachial artery] O2 Saturation 98 Oxygen O2 Source BIPAP Oxygen Flow Rate 4 I&O (Last 24 Hrs): Intake and Output Totals x24h 02/24/22 02/25/22 02/26/22 23:59 23:59 23:59 Intake Total 500 540 150 Output Total 2140 945 162 Balance -1175 -405 -12 Comments/Notes: General: Alert, Oriented x3, Mild distress HEENT: PERRLA, EOMI Neck: Supple, No JVD Neuro: Alert, Oriented Times 3 Cardiovascular: Regular rate, Normal S1, Normal S2, No murmurs Respiratory: Chest non-tender, No respiratory distress, Breath sounds nml Abdomen: Normal bowel sounds, Soft, No tenderness Extremities: No clubbing, No cyanosis, Other (trace edema) Skin: No rashes Comments/Notes: bruise across breast - Results Results: Laboratory Results WBC 7.5 x10^3/uL (4.8-10.8) 02/26/22 04:09 RBC 3.11 10^6/uL (4.20-5.40) L 02/26/22 04:09 Hgb 8.3 g/dL (12.0-16.0) L 02/26/22 04:09 Hct 27.5 % (37.0-47.0) L 02/26/22 04:09 MCV 88.4 fL (81.0-99.0) 02/26/22 04:09 MCH 26.7 pg (27.0-31.0) L 02/26/22 04:09 MCHC 30.2 g/dL (32.0-36.0) L 02/26/22 04:09 RDW 19.6 % (12.0-15.0) H 02/26/22 04:09 Plt Count 309 10^3/uL (130-450) 02/26/22 04:09 MPV 9.7 fL (7.9-10.8) 02/26/22 04:09 Reticulocyte % (Auto) 4.38 % (0.5-2.3) H 02/22/22 21:18 Neut # (Auto) 5.0 10^3/uL (1.5-6.6) 02/26/22 04:09 Lymph # (Auto) 1.5 10^3/uL (1.5-3.5) 02/26/22 04:09 [place] # (Auto) 0.7 10^3/uL (0.0-1.0) 02/26/22 04:09 Eos # (Auto) 0.2 10^3/uL (0.0-0.7) 02/26/22 04:09 Baso # (Auto) 0.0 10^3/uL (0.0-0.1) 02/26/22 04:09 Absolute Nucleated RBC 0.04 x10^3/uL 02/26/22 04:09 Nucleated RBC % 0.5 /100WBC 02/26/22 04:09 Absolute Retic 0.144 10^6/uL (0.020-0.110) H 02/22/22 21:18 PT 12.7 secs (9.9-12.6) H 02/22/22 12:51 INR 1.1 (0.8-1.2) 02/22/22 12:51 Bld Gas Analysis Time 0619 02/26/22 06:15 Sample Site RIGHT RADIAL 02/26/22 06:15 ABG pH 7.39 (7.35-7.45) 02/26/22 06:15 ABG pCO2 52 mmHg (34-45) H 02/26/22 06:15 ABG pO2 61 mmHg (80-100) L 02/26/22 06:15 ABG HCO3 30.8 mmol/L (22.0-26.0) H 02/26/22 06:15 ABG Total CO2 32.4 MMOL/L (21.0-29.0) H 02/26/22 06:15 ABG O2 Saturation 90 % (94-98) L 02/26/22 06:15 ABG Base Excess 5.0 mmol/L (-2.0-3.0) H 02/26/22 06:15 Néstor Test POSITIVE 02/26/22 06:15 VBG pH 7.435 (7.31-7.41) H 02/26/22 04:09 Ionized Calcium 1.12 mmol/L (1.15-1.33) L 02/26/22 04:09 Respiration Rate 16 b/min 02/23/22 04:55 Room Air YES 02/22/22 12:22 O2 Delivery Device BiPAP 02/26/22 06:15 FiO2 40.00 02/26/22 06:15 PEEP 12 cmH2O 02/23/22 04:55 EPAP 5 cmH2O 02/26/22 06:15 IPAP 12 cmH2O 02/26/22 06:15 Sodium 140 mmol/L (135-145) 02/26/22 04:09 Potassium 3.9 mmol/L (3.5-5.0) 02/26/22 04:09 Chloride 103 mmol/L (101-111) 02/26/22 04:09 Carbon Dioxide 28 mmol/L (21-32) 02/26/22 04:09 Anion Gap 9.0 (6-13) 02/26/22 04:09 BUN 27 mg/dL (6-20) H 02/26/22 04:09 Creatinine 1.4 mg/dL (0.4-1.0) H 02/26/22 04:09 Estimated GFR (MDRD) 44 (>89) L 02/26/22 04:09 Glucose 120 mg/dL (70-100) H 02/26/22 04:09 POC Whole Bld Glucose 109 mg/dL (70 - 100) H 02/25/22 20:40 Estimat Average Glucose 180 mg/dL (70-100) H 02/24/22 04:10 Hemoglobin A1c % 7.9 % (4.27-6.07) H 02/24/22 04:10 Lactic Acid 1.2 mmol/L (0.5-2.2) 02/22/22 11:48 Calcium 8.8 mg/dL (8.5-10.3) 02/26/22 04:09 Phosphorus 3.5 mg/dL (2.5-4.6) 02/26/22 04:09 Magnesium 1.8 mg/dL (1.7-2.8) 02/26/22 04:09 Iron 39 ug/dL (28-170) 02/22/22 21:18 TIBC 379 ug/dL (250-450) 02/22/22 21:18 % Saturation 10 % (20-50) L 02/22/22 21:18 Transferrin 271 mg/dL (192-382) 02/22/22 21:18 Ferritin 27.0 ng/mL (11.0-306.8) 02/22/22 21:18 Total Bilirubin 2.3 mg/dL (0.2-1.0) H 02/22/22 12:51 AST 15 IU/L (10-42) 02/22/22 12:51 ALT 14 IU/L (10-60) 02/22/22 12:51 Alkaline Phosphatase 119 IU/L (42-121) 02/22/22 12:51 Ammonia 15.1 umol/L (7-35) 02/23/22 05:55 Lactate Dehydrogenase 227 IU/L (91-225) H 02/22/22 21:18 Troponin I High Sens 45.0 ng/L (2.3-14.8) H* 02/23/22 16:04 B-Natriuretic Peptide 775 pg/mL (5-100) H 02/26/22 04:09 Total Protein 6.8 g/dL (6.7-8.2) 02/22/22 12:51 Albumin 2.7 g/dL (3.2-5.5) L 02/26/22 04:09 Globulin 3.5 g/dL (2.1-4.2) 02/22/22 12:51 Albumin/Globulin Ratio 0.9 (1.0-2.2) L 02/22/22 12:51 Lipase 53 U/L (22-51) H 02/22/22 12:51 Vitamin B12 420 pg/mL (180-914) 02/26/22 04:09 Folate 10.69 ng/mL (5.90 - >24.8) 02/26/22 04:09 TSH 1.23 uIU/mL (0.34-5.60) 02/23/22 05:55 Urine Color YELLOW 02/22/22 13:06 Urine Clarity CLEAR (CLEAR) 02/22/22 13:06 Urine pH 5.5 PH (5.0-7.5) 02/22/22 13:06 Ur Specific [place] >=1.030 (1.002-1.030) H 02/22/22 13:06 Urine Protein 30 mg/dL (NEGATIVE) H 02/22/22 13:06 Urine Glucose (UA) NEGATIVE mg/dL (NEGATIVE) 02/22/22 13:06 Urine Ketones NEGATIVE mg/dL (NEGATIVE) 02/22/22 13:06 Urine Occult Blood NEGATIVE (NEGATIVE) 02/22/22 13:06 Urine Nitrite NEGATIVE (NEGATIVE) 02/22/22 13:06 Urine Bilirubin NEGATIVE (NEGATIVE) 02/22/22 13:06 Urine Urobilinogen 2 E.U./dL (NORMAL) H 02/22/22 13:06 Ur Leukocyte Esterase TRACE (NEGATIVE) H 02/22/22 13:06 Urine RBC 0-5 /HPF (0-5) 02/22/22 13:06 Urine WBC 6-10 /HPF (0-5) H 02/22/22 13:06 Ur Squamous Epith Cells RARE Squamous (<= Few) 02/22/22 13:06 Urine Bacteria Many /HPF (None Seen) H 02/22/22 13:06 Ur Microscopic Review INDICATED 02/22/22 13:06 Urine Culture Comments INDICATED 02/22/22 13:06 Nasal Adenovirus (PCR) NOT DETECTED 02/22/22 12:15 Nasal B. parapertussis DNA (PCR) NOT DETECTED 02/22/22 12:15 Nasal Coronavir 229E PCR NOT DETECTED 02/22/22 12:15 Nasal Coronavir HKU1 PCR NOT DETECTED 02/22/22 12:15 Nasal Coronavir NL63 PCR NOT DETECTED 02/22/22 12:15 Nasal Coronavir OC43 PCR NOT DETECTED 02/22/22 12:15 Nasal Enterovir/Rhinovir PCR NOT DETECTED 02/22/22 12:15 Nasal Influenza B PCR NOT DETECTED 02/22/22 12:15 Nasal Influenza A PCR NOT DETECTED 02/22/22 12:15 Nasal Parainfluen 1 PCR NOT DETECTED 02/22/22 12:15 Nasal Parainfluen 2 PCR NOT DETECTED 02/22/22 12:15 Nasal Parainfluen 3 PCR NOT DETECTED 02/22/22 12:15 Nasal Parainfluen 4 PCR NOT DETECTED 02/22/22 12:15 Nasal RSV (PCR) NOT DETECTED 02/22/22 12:15 Nasal Screen MRSA (PCR) NEGATIVE (NEGATIVE) 02/22/22 21:15 Nasal B.pertussis DNA PCR NOT DETECTED 02/22/22 12:15 Nasal C.pneumoniae (PCR) NOT DETECTED 02/22/22 12:15 [place] Human Metapneumo PCR NOT DETECTED 02/22/22 12:15 Nasal M.pneumoniae (PCR) NOT DETECTED 02/22/22 12:15 Nasal SARS-CoV-2 (PCR) NOT DETECTED 02/22/22 12:15 Last Dose Date UNKNOWN 02/22/22 12:51 Last Dose Time UNKNOWN 02/22/22 12:51 Digoxin 0.9 ng/mL 02/22/22 12:51 Urine Opiates Screen NEGATIVE (NEGATIVE) 02/22/22 13:06 Ur Oxycodone Screen NEGATIVE (NEGATIVE) 02/22/22 13:06 Urine Methadone Screen NEGATIVE (NEGATIVE) 02/22/22 13:06 Ur Propoxyphene Screen NEGATIVE (NEGATIVE) 02/22/22 13:06 Ur Barbiturates Screen NEGATIVE (NEGATIVE) 02/22/22 13:06 Ur Tricyclics Screen NEGATIVE (NEGATIVE) 02/22/22 13:06 Ur Phencyclidine Scrn NEGATIVE (NEGATIVE) 02/22/22 13:06 Ur Amphetamine Screen NEGATIVE (NEGATIVE) 02/22/22 13:06 U Methamphetamines Scrn NEGATIVE (NEGATIVE) 02/22/22 13:06 U Benzodiazepines Scrn NEGATIVE (NEGATIVE) 02/22/22 13:06 Urine Cocaine Screen NEGATIVE (NEGATIVE) 02/22/22 13:06 U Cannabinoids Screen NEGATIVE (NEGATIVE) 02/22/22 13:06 ABX Reporting Has patient been on IV antibiotics over the past 48 hours?: No
[2022-02-26] MEDS: INSULIN REGULAR HUMAN 300 UNIT/3 ML VIAL SUBQ SCH ×2 (08:24→12:02)
[2022-02-26] MEDS: METOPROLOL SUCCINATE 50 MG TABLET PO SCH ×2 (08:25→20:44)
[2022-02-26] MEDS: DIGOXIN 125 MCG TABLET PO SCH (08:25)
[2022-02-26] MEDS: ASPIRIN CHEW 81 MG TABLET PO SCH (08:25)
[2022-02-26] MEDS: lisinopriL 20 MG TABLET PO SCH (08:26)
[2022-02-26] MEDS: SODIUM CHLORIDE FLUSH 0.9% 10 ML SYRINGE IVP SCH ×3 (08:26→20:44)
[2022-02-26] MEDS: SPIRONOLACTONE 25 MG TABLET PO SCH (08:26)
[2022-02-26] MEDS: polyethylene glycoL 3350 17 GM PACKET PO SCH (08:26)
[2022-02-26] MEDS ORDERED: FUROSEMIDE 40 MG TABLET PO SCH (09:00)
[2022-02-26] MEDS ORDERED: lisinopriL 20 MG TABLET PO SCH (09:00)
[2022-02-26] MEDS: INSULIN ASPART 300 UNIT/3 ML PEN SUBQ SCH ×2 (18:34→20:43)
[2022-02-26] MEDS: FORMOTEROL FUMARATE NEB 20 MCG/2 ML INH SCH (19:30)
[2022-02-26] MEDS: IPRATROPIUM/ALBUTEROL 3 ML NEB INH PRN (19:30)
[2022-02-26] MEDS: BUDESONIDE 0.5 MG/2 ML NEB INH SCH (19:30)
[2022-02-26] MEDS: ATORVASTATIN 10 MG TABLET PO SCH (20:43)
[2022-02-27] MEDS: SODIUM CHLORIDE FLUSH 0.9% 10 ML SYRINGE IVP SCH ×4 (04:27→20:37)
[2022-02-27 04:34] LABS: VBG PH 7.465 (7.31-7.41)
[2022-02-27 04:35] LABS: CALCIUM, IONIZED 1.1 mmol/L (1.15-1.33)
[2022-02-27 04:36] LABS: BASOPHILS # (AUTO) 0.1 10^3/uL (0.0-0.1); BASOPHILS % (AUTO) 0.7 %; EOSINOPHILS # (AUTO) 0.2 10^3/uL (0.0-0.7); EOSINOPHILS % (AUTO) 2.4 %; HCT - HEMATOCRIT 30.1 % (37.0-47.0); HGB - HEMOGLOBIN 8.8 g/dL (12.0-16.0); LYMPHOCYTES # (AUTO) 2.1 10^3/uL (1.5-3.5); LYMPHOCYTES % (AUTO) 22.5 %; MEAN CORPUSCULAR HEMOGLOBIN 26.2 pg (27.0-31.0); MEAN CORPUSCULAR HGB CONC 29.2 g/dL (32.0-36.0); MEAN CORPUSCULAR VOLUME 89.6 fL (81.0-99.0); MEAN PLATELET VOLUME 9.5 fL (7.9-10.8); MONOCYTES # (AUTO) 0.8 10^3/uL (0.0-1.0); MONOCYTES % (AUTO) 9.2 %; NEUTROPHILS # (AUTO) 5.9 10^3/uL (1.5-6.6); NEUTROPHILS % (AUTO) 64.7 %; NRBC ABSOLUTE COUNT (AUTO) 0.03 x10^3/uL; NUCLEATED RED BLOOD CELLS AUTO 0.3 /100WBC; PLT - PLATELET COUNT 322 10^3/uL (130-450); RED BLOOD COUNT 3.36 10^6/uL (4.20-5.40); RED CELL DISTRIBUTION WIDTH 19.2 % (12.0-15.0); WHITE BLOOD COUNT 9.1 x10^3/uL (4.8-10.8)
[2022-02-27 04:47] LABS: CALCIUM 8.7 mg/dL (8.5-10.3); CREATININE 1.4 mg/dL (0.4-1.0); MAGNESIUM 1.7 mg/dL (1.7-2.8); PHOSPHORUS 3.3 mg/dL (2.5-4.6); POTASSIUM 4.1 mmol/L (3.5-5.0)
[2022-02-27] MEDS ORDERED: MAGNESIUM OXIDE 400 MG TABLET PO ONE (06:00)
[2022-02-27] MEDS: FUROSEMIDE 40 MG/4 ML VIAL IVP SCH ×2 (06:44→14:00)
[2022-02-27] MEDS: CALCIUM CARBONATE CHEW 500 MG TABLET PO SCH ×2 (06:45→11:00)
[2022-02-27] MEDS: SODIUM CHLORIDE FLUSH 0.9% 10 ML SYRINGE IVP PRN (06:46)
[2022-02-27] MEDS: PANTOPRAZOLE 40 MG TABLET PO SCH (06:47)
[2022-02-27] MEDS: LEVOTHYROXINE 125 MCG TABLET PO SCH (06:47)
[2022-02-27] MEDS: FORMOTEROL FUMARATE NEB 20 MCG/2 ML INH SCH ×2 (07:25→19:34)
[2022-02-27] MEDS: BUDESONIDE 0.5 MG/2 ML NEB INH SCH ×2 (07:25→07:26)
--- NOTE | 2022-02-27 07:32 | PROVIDER PROGRESS NOTE ---
Assessment/Plan - Problem List (1) Acute exacerbation of CHF (congestive heart failure) Qualifiers: Heart failure type: unspecified Qualified Code(s): I50.9 - Heart failure, unspecified Assessment/Plan: 02/27/22 No change in clinical condition from yesterday. We will continue current therapy as listed below. 02/26/22 A limited bedside 2D echocardiogram done by my colleague Dr. Che overnight Moderate-severe left atrial and right atrial enlargement. Massive right ventricular enlargement with poor RV function. A pacemaker is seen in the right heart. LV size is normal with moderate global hypokinesis but severe apical hypokinesis, LVEF 25%. Brief Doppler exam was done that shows moderate tricuspid regurgitation, but a PA pressure could not be calculated by the CW Doppler. She also has a small loculated posterior pericardial effusion. I received records from [facility] today 02/26/22 which showed on June 27, 2021 patient had a 2D echocardiogram which showed normal global and regional left ventricular systolic function. Left systolic function was hyperdynamic. Ejection fraction was estimated at 80%. There was mild to moderate concentric left ventricular hypertrophy. Furthermore in 2019 her EF was between 50 and 55%. Lasix 40 mg IV twice daily was resumed since she still has a pericardial effusion, new bilateral pleural effusions on chest x-ray. Diltiazem was discontinued. Spironolactone 25mg po daily was added. Lisinopril was decreased from 40 mg p.o. twice daily down to 10 mg p.o. daily. Metoprolol succinate 50 mg p.o. twice daily was continued and digoxin was continued. We will continue to monitor patient's I/O's. She continues to be significantly BiPAP dependent. 02/25/22 Patient tolerated being off the BiPAP between 8 AM and 6 PM on 02/24/2022. We will attempt to keep the patient off the BiPAP during the day and on at night today 02/25/2022. IV Lasix discontinued. Lasix 40 mg p.o. daily ordered. BNP was 824 this morning. We will continue to monitor. Continue digoxin, metoprolol succinate and lisinopril. 02/24/22 Patient was more responsive/alert today. Another attempt to wean her off the BiPAP was done today. Currently on 10 L of oxygen year high flow nasal cannula with oxygen saturation in the high 90s. Continue Lasix 40 mg IV twice daily. BNP improved from 1146 down to 663. We will continue patient's medications as listed below. She is able to tolerate oral intake at this time. We will discontinue IV metoprolol. Chest x-ray done 02/24/22 morning showed cardiomegaly with prominent pulmonary vasculature and small bilateral pleural effusions most likely secondary to CHF. Next goal would be to see if patient can work with physical therapy on 02/25/22. (2) Acute respiratory failure with hypoxia and hypercapnia Assessment/Plan: This is acute on chronic respiratory failure. Multifactorial secondary to CHF exacerbation (acutely). A limited bedside 2D echocardiogram done on 02/25/22 showed an ejection fraction of 25%. Patient also has history of obstructive sleep apnea/obesity hypoventilation syndrome and history of sarcoidosis. Patient is currently on the BiPAP. Her oxygen saturation drops precipitously into the mid 70s to 80s within 10 to 15 minutes of taking her off BiPAP and even on 10 L of oxygen via nasal cannula. Patient will greatly benefit from a home ventilator specifically a trilogy unit as this will help reduce hospitalizations Noninvasive ventilator required to reduce hospitalization and improve patient's health. BiPAP considered and deemed ineffective. I am ordering a noninvasive home ventilator to treat her chronic respiratory failure (3) Hypertension Assessment/Plan: At time of admission patient's systolic blood pressure was 219. This has since improved. Systolic blood pressure currently fluctuates between 120s and 150s. She is currently on Lasix 40 mg IV twice daily. Lisinopril 10 mg p.o. daily, spironolactone 25 mg p.o. daily and Metoprolol succinate 50 mg p.o. twice daily (4) Contusion, chest wall Qualifiers: Encounter type: initial encounter Assessment/Plan: It was an unwitnessed fall. She has extensive bruising across her chest/breast area as a result. CT head done 02/22/2022 showed no acute intracranial abnormality. Chest and rib x-ray showed cardiomegaly with suggested pulmonary edema. Extensive mediastinal calcifications which may reflect granulomatous change No rib fractures were noticed. Ultrasound of the left breast ordered due to firmness on palpation. (5) History of atrial flutter Assessment/Plan: On metoprolol succinate 50 mg p.o. twice daily and digoxin 125 mcg p.o. daily. (6) CHELITA (obstructive sleep apnea) Assessment/Plan: Currently on the BiPAP intermittently. (7) Type 2 diabetes mellitus, without long-term current use of insulin Qualifiers: Diabetes mellitus complication status: without complication Qualified Code(s): E11.9 - Type 2 diabetes mellitus without complications Assessment/Plan: HqA1C was 7.9. Accu-Cheks before every meal at bedtime. Sliding scale insulin. (8) Hematoma of left breast Assessment/Plan: Secondary to contusion following fall at home. It was an unwitnessed fall. Ultrasound of the breast done 02/23/22 showed a hematoma measuring 11.2 x 5.7 x 11 cm. Hemoglobin this morning was 8.8. Will repeat hemoglobin in the afternoon and address accordingly. Lovenox for DVT prophylaxis discontinued. (9) Anemia Qualifiers: Anemia type: unspecified type Qualified Code(s): D64.9 - Anemia, unspecified Assessment/Plan: Secondary to contusion following a fall at home. It was an unwitnessed fall. Ultrasound of the breast done 02/23/22 showed a hematoma measuring 11.2 x 5.7 x 11 cm. Hemoglobin this morning was 8.8. Will repeat hemoglobin in the afternoon and address accordingly. Lovenox for DVT prophylaxis discontinued. (10) Hypothyroidism Assessment/Plan: On Synthroid 125 mcg p.o. daily AC (11) Hyperlipidemia Assessment/Plan: Atorvastatin 20 mg p.o. daily (12) GERD (gastroesophageal reflux disease) Assessment/Plan: Protonix 40 mg p.o. daily AC. (13) History of coronary artery disease Assessment/Plan: With stent to the LAD in 2017. She is on metoprolol succinate, lisinopril, atorvastatin, Baby aspirin (15) Pericardial effusion Assessment/Plan: Patient had history of pericardial effusion in the past for which records that she had a pericardial window done. Limited bedside 2D echocardiogram indicated some pericardial effusion on 02/25/2022 - Current Meds Current Meds: Current Medications Generic Name Dose Route Start Last Admin Trade Name Freq PRN Reason Stop Dose Admin Acetaminophen 650 mg 02/22/22 16:08 02/23/22 18:30 Acetaminophen 325 Mg Tablet PO 650 mg Q4HR PRN Administration Pain 1 to 4, or Fever Albuterol/Ipratropium 3 ml 02/26/22 18:19 02/26/22 19:30 Ipratropium/Albuterol 3 Ml Neb INH 3 ml Q4HR PRN Administration Wheezing Aspirin 81 mg 02/23/22 09:00 02/26/22 08:25 Aspirin Chew 81 Mg Tablet PO 81 mg DAILY PANDA Administration Atorvastatin Calcium 20 mg 02/23/22 21:00 02/26/22 20:43 Atorvastatin 10 Mg Tablet PO 20 mg QPM PANDA Administration Budesonide 0.5 mg 02/26/22 19:00 02/27/22 07:26 Budesonide 0.5 Mg/2 Ml Neb INH 0.5 mg RTBID PANDA Administration Calcium Carbonate/Glycine 1,250 mg 02/27/22 06:00 02/27/22 06:45 Calcium Carbonate Chew 500 Mg Tablet PO 02/27/22 10:01 1,250 mg Q4H PANDA Administration Protocol Digoxin 125 mcg 02/23/22 09:00 02/26/22 08:25 Digoxin 125 Mcg Tablet PO 125 mcg DAILY PANDA Administration Formoterol Fumarate 20 mcg 02/26/22 19:00 02/27/22 07:25 Formoterol Fumarate Neb 20 Mcg/2 Ml INH 20 mcg RTBID PANDA Administration Furosemide 40 mg 02/26/22 06:00 02/27/22 06:44 Furosemide 40 Mg/4 Ml Vial IVP 40 mg BIDDIURETIC PANDA Administration Insulin Aspart 2 - 10 unit 02/26/22 17:40 02/26/22 20:43 Insulin Aspart 300 Unit/3 Ml Pen SUBQ 2 unit 0800,1200,1700,2100 PANDA Administration Protocol Levothyroxine Sodium 125 mcg 02/24/22 07:00 02/27/22 06:47 Levothyroxine 125 Mcg Tablet PO 125 mcg QDAC PANDA Administration Lisinopril 10 mg 02/26/22 09:00 02/26/22 08:26 Lisinopril 20 Mg Tablet PO Not Given DAILY PANDA Metoprolol Succinate 50 mg 02/23/22 09:00 02/26/22 20:44 Metoprolol Succinate 50 Mg Tablet PO 50 mg BID PANDA Administration Oxycodone HCl 5 mg 02/22/22 16:08 02/24/22 21:57 Oxycodone 5 Mg Tablet PO 5 mg Q4HR PRN Administration Pain 5 to 7 Pantoprazole Sodium 40 mg 02/23/22 09:00 02/27/22 06:47 Pantoprazole 40 Mg Tablet PO 40 mg QDAC PANDA Administration Polyethylene Glycol 17 gm 02/26/22 09:00 02/26/22 08:26 Polyethylene Glycol 3350 17 Gm Packet PO 17 gm DAILY PANDA Administration Sodium Chloride 10 ml 02/22/22 16:08 02/27/22 06:46 Sodium Chloride Flush 0.9% 10 Ml Syringe IVP 10 ml PRN PRN Administration NEEDED PER PROVIDER ORDERS Sodium Chloride 10 ml 02/22/22 17:00 02/27/22 04:27 Sodium Chloride Flush 0.9% 10 Ml Syringe IVP 10 ml 0100,0900,1700 PANDA Administration Spironolactone 25 mg 02/26/22 09:00 02/26/22 08:26 Spironolactone 25 Mg Tablet PO 25 mg DAILY PANDA Administration - Lab Result Fish Bone Diagrams: 02/27/22 04:25 02/27/22 04:25 - Additional Planning My Orders: My Active Orders 02/26/22 09:00 polyethylene glycoL 3350 [Miralax] 17 gm PO DAILY 02/26/22 18:19 Ipratropium/Albuterol [Duoneb] 3 ml INH Q4HR PRN 02/26/22 18:20 Nebulizer/MDI Tx. [RC] .PRN Resp Teach Nebulizer/MDI [RC] .ONCE 02/26/22 19:00 Budesonide [Pulmicort] 0.5 mg INH RTBID Formoterol Fumarate [Perforomist] 20 mcg INH RTBID 02/27/22 06:00 Calcium Carbonate [Tums] 1,250 mg PO Q4H 02/28/22 05:00 BMP - BASIC METABOLIC PANEL [CHEM] DAILYLAB BNP - B-NATRIURETIC PEPTIDE [IAI] DAILYLAB CALCIUM, IONIZED ([facility]) [BG] DAILYLAB CBC - COMP BLD CT W/AUTO DIFF [HEME] DAILYLAB MAGNESIUM [CHEM] DAILYLAB PHOSPHORUS [CHEM] DAILYLAB Subjective - Subjective Patient Reports: Other (Patient was resting comfortably in bed. She was on the BiPAP at time of exam. She denied any complaints. She appeared to be sleeping but readily open her eyes to command) Objective Vital Signs: Vital Signs - 24 hr 02/26/22 02/26/22 02/26/22 07:40 08:00 09:00 Temperature 37 C 37.1 C Heart Rate 70 Heart Rate [ 69 69 Monitoring electrodes] Respiratory 18 16 Rate Blood Pressure 106/65 100/55 L [Right Brachial artery] O2 Saturation 100 96 02/26/22 02/26/22 02/26/22 10:00 11:00 11:27 Temperature Heart Rate 74 Heart Rate [ 69 Monitoring electrodes] Respiratory 20 20 Rate Blood Pressure 102/54 L 107/52 L [Right Brachial artery] O2 Saturation 93 92 02/26/22 02/26/22 02/26/22 12:00 13:00 13:52 Temperature Heart Rate 70 Heart Rate [ 69 69 Monitoring electrodes] Respiratory 12 18 Rate Blood Pressure 114/63 122/62 [Right Brachial artery] O2 Saturation 94 97 02/26/22 02/26/22 02/26/22 14:00 15:00 16:00 Temperature 36.9 C Heart Rate Heart Rate [ 69 69 69 Monitoring electrodes] Respiratory 15 17 18 Rate Blood Pressure 116/56 L 102/67 122/72 [Right Brachial artery] O2 Saturation 98 96 94 02/26/22 02/26/22 02/26/22 16:12 17:00 18:00 Temperature Heart Rate 74 Heart Rate [ 69 69 Monitoring electrodes] Respiratory 17 15 Rate Blood Pressure 109/57 L 116/73 [Right Brachial artery] O2 Saturation 95 95 02/26/22 02/26/22 02/26/22 18:10 19:00 19:30 Temperature Heart Rate 74 69 Heart Rate [ 69 Monitoring electrodes] Respiratory 19 18 Rate Blood Pressure 94/45 L [Right Brachial artery] O2 Saturation 95 02/26/22 02/26/22 02/26/22 20:00 21:00 22:00 Temperature Heart Rate Heart Rate [ 69 69 69 Monitoring electrodes] Respiratory 19 19 13 Rate Blood Pressure 117/66 109/60 114/59 L [Right Brachial artery] O2 Saturation 100 91 L 98 02/26/22 02/26/22 02/27/22 23:00 23:30 00:00 Temperature Heart Rate 69 Heart Rate [ 69 69 Monitoring electrodes] Respiratory 15 25 H Rate Blood Pressure 121/66 115/59 L [Right Brachial artery] O2 Saturation 98 99 02/27/22 02/27/22 02/27/22 00:44 01:00 01:45 Temperature 36.5 C Heart Rate 69 Heart Rate [ 69 Monitoring electrodes] Respiratory 17 Rate Blood Pressure 107/57 L [Right Brachial artery] O2 Saturation 99 02/27/22 02/27/22 02/27/22 02:00 03:00 04:00 Temperature 36.9 C Heart Rate Heart Rate [ 69 69 69 Monitoring electrodes] Respiratory 14 14 18 Rate Blood Pressure 110/56 L 123/65 122/65 [Right Brachial artery] O2 Saturation 99 99 97 02/27/22 02/27/22 02/27/22 05:00 05:30 06:00 Temperature Heart Rate 69 Heart Rate [ 69 69 Monitoring electrodes] Respiratory 13 10 L Rate Blood Pressure 123/63 125/68 [Right Brachial artery] O2 Saturation 99 100 02/27/22 07:00 Temperature Heart Rate Heart Rate [ 69 Monitoring electrodes] Respiratory 13 Rate Blood Pressure 123/56 L [Right Brachial artery] O2 Saturation 98 Oxygen O2 Source Oxymizer Oxygen Flow Rate 4 I&O (Last 24 Hrs): Intake and Output Totals x24h 02/25/22 02/26/22 02/27/22 23:59 23:59 23:59 Intake Total 540 1220 500 Output Total 945 1419 490 Balance -405 -199 10 Comments/Notes: General: Alert, Oriented x3, Mild distress HEENT: PERRLA, EOMI Neck: Supple, No JVD Neuro: Alert, Oriented Times 3 Cardiovascular: Regular rate, Normal S1, Normal S2, No murmurs Respiratory: Chest non-tender, No respiratory distress, Breath sounds nml Abdomen: Normal bowel sounds, Soft, No tenderness Extremities: No clubbing, No cyanosis, Other (trace edema) Skin: No rashes Comments/Notes: bruise across breast - Results Results: Laboratory Results WBC 9.1 x10^3/uL (4.8-10.8) 02/27/22 04:25 RBC 3.36 10^6/uL (4.20-5.40) L 02/27/22 04:25 Hgb 8.8 g/dL (12.0-16.0) L 02/27/22 04:25 Hct 30.1 % (37.0-47.0) L 02/27/22 04:25 MCV 89.6 fL (81.0-99.0) 02/27/22 04:25 MCH 26.2 pg (27.0-31.0) L 02/27/22 04:25 MCHC 29.2 g/dL (32.0-36.0) L 02/27/22 04:25 RDW 19.2 % (12.0-15.0) H 02/27/22 04:25 Plt Count 322 10^3/uL (130-450) 02/27/22 04:25 MPV 9.5 fL (7.9-10.8) 02/27/22 04:25 Reticulocyte % (Auto) 4.38 % (0.5-2.3) H 02/22/22 21:18 Neut # (Auto) 5.9 10^3/uL (1.5-6.6) 02/27/22 04:25 Lymph # (Auto) 2.1 10^3/uL (1.5-3.5) 02/27/22 04:25 [place] # (Auto) 0.8 10^3/uL (0.0-1.0) 02/27/22 04:25 Eos # (Auto) 0.2 10^3/uL (0.0-0.7) 02/27/22 04:25 Baso # (Auto) 0.1 10^3/uL (0.0-0.1) 02/27/22 04:25 Absolute Nucleated RBC 0.03 x10^3/uL 02/27/22 04:25 Nucleated RBC % 0.3 /100WBC 02/27/22 04:25 Absolute Retic 0.144 10^6/uL (0.020-0.110) H 02/22/22 21:18 PT 12.7 secs (9.9-12.6) H 02/22/22 12:51 INR 1.1 (0.8-1.2) 02/22/22 12:51 Bld Gas Analysis Time 0619 02/26/22 06:15 Sample Site RIGHT RADIAL 02/26/22 06:15 ABG pH 7.39 (7.35-7.45) 02/26/22 06:15 ABG pCO2 52 mmHg (34-45) H 02/26/22 06:15 ABG pO2 61 mmHg (80-100) L 02/26/22 06:15 ABG HCO3 30.8 mmol/L (22.0-26.0) H 02/26/22 06:15 ABG Total CO2 32.4 MMOL/L (21.0-29.0) H 02/26/22 06:15 ABG O2 Saturation 90 % (94-98) L 02/26/22 06:15 ABG Base Excess 5.0 mmol/L (-2.0-3.0) H 02/26/22 06:15 Néstor Test POSITIVE 02/26/22 06:15 VBG pH 7.465 (7.31-7.41) H 02/27/22 04:25 Ionized Calcium 1.10 mmol/L (1.15-1.33) L 02/27/22 04:25 Respiration Rate 16 b/min 02/23/22 04:55 Room Air YES 02/22/22 12:22 O2 Delivery Device BiPAP 02/26/22 06:15 FiO2 40.00 02/26/22 06:15 PEEP 12 cmH2O 02/23/22 04:55 EPAP 5 cmH2O 02/26/22 06:15 IPAP 12 cmH2O 02/26/22 06:15 Sodium 141 mmol/L (135-145) 02/27/22 04:25 Potassium 4.1 mmol/L (3.5-5.0) 02/27/22 04:25 Chloride 99 mmol/L (101-111) L 02/27/22 04:25 Carbon Dioxide 31 mmol/L (21-32) 02/27/22 04:25 Anion Gap 11.0 (6-13) 02/27/22 04:25 BUN 25 mg/dL (6-20) H 02/27/22 04:25 Creatinine 1.4 mg/dL (0.4-1.0) H 02/27/22 04:25 Estimated GFR (MDRD) 44 (>89) L 02/27/22 04:25 Glucose 155 mg/dL (70-100) H 02/27/22 04:25 POC Whole Bld Glucose 169 mg/dL (70 - 100) H 02/26/22 20:37 Estimat Average Glucose 180 mg/dL (70-100) H 02/24/22 04:10 Hemoglobin A1c % 7.9 % (4.27-6.07) H 02/24/22 04:10 Lactic Acid 1.2 mmol/L (0.5-2.2) 02/22/22 11:48 Calcium 8.7 mg/dL (8.5-10.3) 02/27/22 04:25 Phosphorus 3.3 mg/dL (2.5-4.6) 02/27/22 04:25 Magnesium 1.7 mg/dL (1.7-2.8) 02/27/22 04:25 Iron 39 ug/dL (28-170) 02/22/22 21:18 TIBC 379 ug/dL (250-450) 02/22/22 21:18 % Saturation 10 % (20-50) L 02/22/22 21:18 Transferrin 271 mg/dL (192-382) 02/22/22 21:18 Ferritin 27.0 ng/mL (11.0-306.8) 02/22/22 21:18 Total Bilirubin 2.3 mg/dL (0.2-1.0) H 02/22/22 12:51 AST 15 IU/L (10-42) 02/22/22 12:51 ALT 14 IU/L (10-60) 02/22/22 12:51 Alkaline Phosphatase 119 IU/L (42-121) 02/22/22 12:51 Ammonia 15.1 umol/L (7-35) 02/23/22 05:55 Lactate Dehydrogenase 227 IU/L (91-225) H 02/22/22 21:18 Troponin I High Sens 45.0 ng/L (2.3-14.8) H* 02/23/22 16:04 B-Natriuretic Peptide 840 pg/mL (5-100) H 02/27/22 04:25 Total Protein 6.8 g/dL (6.7-8.2) 02/22/22 12:51 Albumin 2.7 g/dL (3.2-5.5) L 02/26/22 04:09 Globulin 3.5 g/dL (2.1-4.2) 02/22/22 12:51 Albumin/Globulin Ratio 0.9 (1.0-2.2) L 02/22/22 12:51 Lipase 53 U/L (22-51) H 02/22/22 12:51 Vitamin B12 420 pg/mL (180-914) 02/26/22 04:09 Folate 10.69 ng/mL (5.90 - >24.8) 02/26/22 04:09 TSH 1.23 uIU/mL (0.34-5.60) 02/23/22 05:55 Urine Color YELLOW 02/22/22 13:06 Urine Clarity CLEAR (CLEAR) 02/22/22 13:06 Urine pH 5.5 PH (5.0-7.5) 02/22/22 13:06 Ur Specific [place] >=1.030 (1.002-1.030) H 02/22/22 13:06 Urine Protein 30 mg/dL (NEGATIVE) H 02/22/22 13:06 Urine Glucose (UA) NEGATIVE mg/dL (NEGATIVE) 02/22/22 13:06 Urine Ketones NEGATIVE mg/dL (NEGATIVE) 02/22/22 13:06 Urine Occult Blood NEGATIVE (NEGATIVE) 02/22/22 13:06 Urine Nitrite NEGATIVE (NEGATIVE) 02/22/22 13:06 Urine Bilirubin NEGATIVE (NEGATIVE) 02/22/22 13:06 Urine Urobilinogen 2 E.U./dL (NORMAL) H 02/22/22 13:06 Ur Leukocyte Esterase TRACE (NEGATIVE) H 02/22/22 13:06 Urine RBC 0-5 /HPF (0-5) 02/22/22 13:06 Urine WBC 6-10 /HPF (0-5) H 02/22/22 13:06 Ur Squamous Epith Cells RARE Squamous (<= Few) 02/22/22 13:06 Urine Bacteria Many /HPF (None Seen) H 02/22/22 13:06 Ur Microscopic Review INDICATED 02/22/22 13:06 Urine Culture Comments INDICATED 02/22/22 13:06 Nasal Adenovirus (PCR) NOT DETECTED 02/22/22 12:15 Nasal B. parapertussis DNA (PCR) NOT DETECTED 02/22/22 12:15 Nasal Coronavir 229E PCR NOT DETECTED 02/22/22 12:15 Nasal Coronavir HKU1 PCR NOT DETECTED 02/22/22 12:15 Nasal Coronavir NL63 PCR NOT DETECTED 02/22/22 12:15 Nasal Coronavir OC43 PCR NOT DETECTED 02/22/22 12:15 Nasal Enterovir/Rhinovir PCR NOT DETECTED 02/22/22 12:15 Nasal Influenza B PCR NOT DETECTED 02/22/22 12:15 Nasal Influenza A PCR NOT DETECTED 02/22/22 12:15 Nasal Parainfluen 1 PCR NOT DETECTED 02/22/22 12:15 Nasal Parainfluen 2 PCR NOT DETECTED 02/22/22 12:15 Nasal Parainfluen 3 PCR NOT DETECTED 02/22/22 12:15 Nasal Parainfluen 4 PCR NOT DETECTED 02/22/22 12:15 Nasal RSV (PCR) NOT DETECTED 02/22/22 12:15 Nasal Screen MRSA (PCR) NEGATIVE (NEGATIVE) 02/22/22 21:15 Nasal B.pertussis DNA PCR NOT DETECTED 02/22/22 12:15 Nasal C.pneumoniae (PCR) NOT DETECTED 02/22/22 12:15 Benito Human Metapneumo PCR NOT DETECTED 02/22/22 12:15 Nasal M.pneumoniae (PCR) NOT DETECTED 02/22/22 12:15 Nasal SARS-CoV-2 (PCR) NOT DETECTED 02/22/22 12:15 Last Dose Date UNKNOWN 02/22/22 12:51 Last Dose Time UNKNOWN 02/22/22 12:51 Digoxin 0.9 ng/mL 02/22/22 12:51 Urine Opiates Screen NEGATIVE (NEGATIVE) 02/22/22 13:06 Ur Oxycodone Screen NEGATIVE (NEGATIVE) 02/22/22 13:06 Urine Methadone Screen NEGATIVE (NEGATIVE) 02/22/22 13:06 Ur Propoxyphene Screen NEGATIVE (NEGATIVE) 02/22/22 13:06 Ur Barbiturates Screen NEGATIVE (NEGATIVE) 02/22/22 13:06 Ur Tricyclics Screen NEGATIVE (NEGATIVE) 02/22/22 13:06 Ur Phencyclidine Scrn NEGATIVE (NEGATIVE) 02/22/22 13:06 Ur Amphetamine Screen NEGATIVE (NEGATIVE) 02/22/22 13:06 U Methamphetamines Scrn NEGATIVE (NEGATIVE) 02/22/22 13:06 U Benzodiazepines Scrn NEGATIVE (NEGATIVE) 02/22/22 13:06 Urine Cocaine Screen NEGATIVE (NEGATIVE) 02/22/22 13:06 U Cannabinoids Screen NEGATIVE (NEGATIVE) 02/22/22 13:06 ABX Reporting Has patient been on IV antibiotics over the past 48 hours?: No
[2022-02-27] MEDS: polyethylene glycoL 3350 17 GM PACKET PO SCH (08:23)
[2022-02-27] MEDS: ASPIRIN CHEW 81 MG TABLET PO SCH (08:23)
[2022-02-27] MEDS: SPIRONOLACTONE 25 MG TABLET PO SCH (08:24)
[2022-02-27] MEDS: lisinopriL 20 MG TABLET PO SCH (08:24)
[2022-02-27] MEDS: METOPROLOL SUCCINATE 50 MG TABLET PO SCH ×2 (08:24→20:36)
[2022-02-27] MEDS: DIGOXIN 125 MCG TABLET PO SCH (08:24)
[2022-02-27] MEDS: INSULIN ASPART 300 UNIT/3 ML PEN SUBQ SCH ×4 (09:00→20:36)
[2022-02-27] MEDS: IPRATROPIUM/ALBUTEROL 3 ML NEB INH PRN (19:34)
[2022-02-27] MEDS: ATORVASTATIN 10 MG TABLET PO SCH (20:36)
[2022-02-28] MEDS: SODIUM CHLORIDE FLUSH 0.9% 10 ML SYRINGE IVP PRN (05:16)
[2022-02-28] MEDS: FUROSEMIDE 40 MG/4 ML VIAL IVP SCH ×2 (05:16→13:50)
[2022-02-28 06:22] LABS: BASOPHILS % (AUTO) 0.5 %; EOSINOPHILS # (AUTO) 0.2 10^3/uL (0.0-0.7); EOSINOPHILS % (AUTO) 2.9 %; HCT - HEMATOCRIT 29.1 % (37.0-47.0); HGB - HEMOGLOBIN 8.8 g/dL (12.0-16.0); LYMPHOCYTES # (AUTO) 1.7 10^3/uL (1.5-3.5); LYMPHOCYTES % (AUTO) 22.1 %; MEAN CORPUSCULAR HGB CONC 30.2 g/dL (32.0-36.0); MEAN CORPUSCULAR VOLUME 89.3 fL (81.0-99.0); MEAN PLATELET VOLUME 10.3 fL (7.9-10.8); MONOCYTES # (AUTO) 0.8 10^3/uL (0.0-1.0); MONOCYTES % (AUTO) 10.3 %; NEUTROPHILS % (AUTO) 63.7 %; PLT - PLATELET COUNT 255 10^3/uL (130-450); RED BLOOD COUNT 3.26 10^6/uL (4.20-5.40); RED CELL DISTRIBUTION WIDTH 19.5 % (12.0-15.0); WHITE BLOOD COUNT 7.8 x10^3/uL (4.8-10.8)
[2022-02-28 06:24] LABS: CALCIUM, IONIZED 1.04 mmol/L (1.15-1.33); VBG PH 7.503 (7.31-7.41)
[2022-02-28 06:35] LABS: CALCIUM 8.5 mg/dL (8.5-10.3); CREATININE 1.2 mg/dL (0.4-1.0); MAGNESIUM 1.9 mg/dL (1.7-2.8)
[2022-02-28] MEDS: CALCIUM CARBONATE CHEW 500 MG TABLET PO SCH ×2 (07:13→11:00)
[2022-02-28] MEDS: PANTOPRAZOLE 40 MG TABLET PO SCH (07:14)
[2022-02-28] MEDS: LEVOTHYROXINE 125 MCG TABLET PO SCH (07:14)
[2022-02-28] MEDS: FORMOTEROL FUMARATE NEB 20 MCG/2 ML INH SCH ×2 (07:16→18:36)
[2022-02-28] MEDS: BUDESONIDE 0.5 MG/2 ML NEB INH SCH ×3 (07:16→18:36)
--- NOTE | 2022-02-28 07:24 | PROVIDER PROGRESS NOTE ---
Assessment/Plan - Problem List (1) Acute exacerbation of CHF (congestive heart failure) Qualifiers: Heart failure type: unspecified Qualified Code(s): I50.9 - Heart failure, unspecified Assessment/Plan: 02/28/22 BNP 479 today Patient continues on bipap Documentation for trilogy submitted to insurance Patient eager to attempt sitting up in recliner We will continue current therapy with medications as listed below. Today 02/27/2022 I discussed the patient's new EF of 25% with daughter seeking direction regarding for further work-up to possibly involve a cardiac angiogram. Awaiting response. 02/27/22 No change in clinical condition from yesterday. We will continue current therapy as listed below. 02/26/22 A limited bedside 2D echocardiogram done by my colleague Dr. Che overnight Moderate-severe left atrial and right atrial enlargement. Massive right ventricular enlargement with poor RV function. A pacemaker is seen in the right heart. LV size is normal with moderate global hypokinesis but severe apical hypokinesis, LVEF 25%. Brief Doppler exam was done that shows moderate tricuspid regurgitation, but a PA pressure could not be calculated by the CW Doppler. She also has a small loculated posterior pericardial effusion. I received records from [facility] today 02/26/22 which showed on June 27, 2021 patient had a 2D echocardiogram which showed normal global and regional left ventricular systolic function. Left systolic function was hyperdynamic. Ejection fraction was estimated at 80%. There was mild to moderate concentric left ventricular hypertrophy. Furthermore in 2019 her EF was between 50 and 55%. Lasix 40 mg IV twice daily was resumed since she still has a pericardial effusion, new bilateral pleural effusions on chest x-ray. Diltiazem was discontinued. Spironolactone 25mg po daily was added. Lisinopril was decreased from 40 mg p.o. twice daily down to 10 mg p.o. daily. Metoprolol succinate 50 mg p.o. twice daily was continued and digoxin was continued. We will continue to monitor patient's I/O's. She continues to be significantly BiPAP dependent. 02/25/22 Patient tolerated being off the BiPAP between 8 AM and 6 PM on 02/24/2022. We will attempt to keep the patient off the BiPAP during the day and on at night today 02/25/2022. IV Lasix discontinued. Lasix 40 mg p.o. daily ordered. BNP was 824 this morning. We will continue to monitor. Continue digoxin, metoprolol succinate and lisinopril. 02/24/22 Patient was more responsive/alert today. Another attempt to wean her off the BiPAP was done today. Currently on 10 L of oxygen year high flow nasal cannula with oxygen saturation in the high 90s. Continue Lasix 40 mg IV twice daily. BNP improved from 1146 down to 663. We will continue patient's medications as listed below. She is able to tolerate oral intake at this time. We will discontinue IV metoprolol. Chest x-ray done 02/24/22 morning showed cardiomegaly with prominent pulmonary vasculature and small bilateral pleural effusions most likely secondary to CHF. Next goal would be to see if patient can work with physical therapy on 02/25/22. (2) Acute respiratory failure with hypoxia and hypercapnia Assessment/Plan: This is acute on chronic respiratory failure. Multifactorial secondary to CHF exacerbation (acutely). A limited bedside 2D echocardiogram done on 02/25/22 showed an ejection fraction of 25%. Patient also has history of obstructive sleep apnea/obesity hypoventilation syndrome and history of sarcoidosis. Patient is currently on the BiPAP. Her oxygen saturation drops precipitously into the mid 70s to 80s within 10 to 15 minutes of taking her off BiPAP and even on 10 L of oxygen via nasal cannula. Patient will greatly benefit from a home ventilator specifically a trilogy unit as this will help reduce hospitalizations Noninvasive ventilator required to reduce hospitalization and improve patient's health. BiPAP considered and deemed ineffective. I am ordering a noninvasive home ventilator to treat her chronic respiratory failure (3) Hypertension Assessment/Plan: She is currently on Lasix 40 mg IV twice daily. Lisinopril 10 mg p.o. daily, spironolactone 25 mg p.o. daily and Metoprolol succinate 50 mg p.o. twice daily (4) Contusion, chest wall Qualifiers: Encounter type: initial encounter Assessment/Plan: It was an unwitnessed fall. She has extensive bruising across her chest/breast area as a result. CT head done 02/22/2022 showed no acute intracranial abnormality. Chest and rib x-ray showed cardiomegaly with suggested pulmonary edema. Extensive mediastinal calcifications which may reflect granulomatous change No rib fractures were noticed. Ultrasound of the left breast ordered due to firmness on palpation. (5) History of atrial flutter Assessment/Plan: On metoprolol succinate 50 mg p.o. twice daily and digoxin 125 mcg p.o. daily. (6) CHELITA (obstructive sleep apnea) Assessment/Plan: Currently on the BiPAP intermittently. (7) Type 2 diabetes mellitus, without long-term current use of insulin Qualifiers: Diabetes mellitus complication status: without complication Qualified Code(s): E11.9 - Type 2 diabetes mellitus without complications Assessment/Plan: HqA1C was 7.9. Accu-Cheks before every meal at bedtime. Sliding scale insulin. (8) Hematoma of left breast Assessment/Plan: Secondary to contusion following fall at home. It was an unwitnessed fall. Ultrasound of the breast done 02/23/22 showed a hematoma measuring 11.2 x 5.7 x 11 cm. Hemoglobin this morning was 8.8. Will repeat hemoglobin in the afternoon and address accordingly. Lovenox for DVT prophylaxis discontinued. (9) Anemia Qualifiers: Anemia type: unspecified type Qualified Code(s): D64.9 - Anemia, unspecified Assessment/Plan: Secondary to contusion following a fall at home. It was an unwitnessed fall. Ultrasound of the breast done 02/23/22 showed a hematoma measuring 11.2 x 5.7 x 11 cm. Hemoglobin this morning was 8.8. Will repeat hemoglobin in the afternoon and address accordingly. Lovenox for DVT prophylaxis discontinued. (10) Hypothyroidism Assessment/Plan: On Synthroid 125 mcg p.o. daily AC (11) Hyperlipidemia Assessment/Plan: Atorvastatin 20 mg p.o. daily (12) GERD (gastroesophageal reflux disease) Assessment/Plan: Protonix 40 mg p.o. daily AC. (13) History of coronary artery disease Assessment/Plan: With stent to the LAD in 2017. She is on metoprolol succinate, lisinopril, atorvastatin, Baby aspirin (14) History of sarcoidosis Assessment/Plan: Treatment/ duration of treatment unknown (15) Pericardial effusion Assessment/Plan: Patient had history of pericardial effusion in the past for which records that she had a pericardial window done. Limited bedside 2D echocardiogram indicated some pericardial effusion on 02/25/2022 - Current Meds Current Meds: Current Medications Generic Name Dose Route Start Last Admin Trade Name Genq PRN Reason Stop Dose Admin Acetaminophen 650 mg 02/22/22 16:08 02/23/22 18:30 Acetaminophen 325 Mg Tablet PO 650 mg Q4HR PRN Administration Pain 1 to 4, or Fever Albuterol/Ipratropium 3 ml 02/26/22 18:19 02/27/22 19:34 Ipratropium/Albuterol 3 Ml Neb INH 3 ml Q4HR PRN Administration Wheezing Aspirin 81 mg 02/23/22 09:00 02/27/22 08:23 Aspirin Chew 81 Mg Tablet PO 81 mg DAILY PANDA Administration Atorvastatin Calcium 20 mg 02/23/22 21:00 02/27/22 20:36 Atorvastatin 10 Mg Tablet PO 20 mg QPM PANDA Administration Budesonide 0.5 mg 02/26/22 19:00 02/28/22 07:16 Budesonide 0.5 Mg/2 Ml Neb INH 0.5 mg RTBID PANDA Administration Calcium Carbonate/Glycine 1,250 mg 02/28/22 07:00 02/28/22 07:13 Calcium Carbonate Chew 500 Mg Tablet PO 02/28/22 11:01 1,250 mg Q4H PANDA Administration Protocol Digoxin 125 mcg 02/23/22 09:00 02/27/22 08:24 Digoxin 125 Mcg Tablet PO 125 mcg DAILY PANDA Administration Formoterol Fumarate 20 mcg 02/26/22 19:00 02/28/22 07:16 Formoterol Fumarate Neb 20 Mcg/2 Ml INH 20 mcg RTBID PANDA Administration Furosemide 40 mg 02/26/22 06:00 02/28/22 05:16 Furosemide 40 Mg/4 Ml Vial IVP 40 mg BIDDIURETIC PANDA Administration Levothyroxine Sodium 125 mcg 02/24/22 07:00 02/28/22 07:14 Levothyroxine 125 Mcg Tablet PO 125 mcg QDAC PANDA Administration Lisinopril 10 mg 02/26/22 09:00 02/27/22 08:24 Lisinopril 20 Mg Tablet PO 10 mg DAILY PANDA Administration Metoprolol Succinate 50 mg 02/23/22 09:00 02/27/22 20:36 Metoprolol Succinate 50 Mg Tablet PO 50 mg BID PANDA Administration Oxycodone HCl 5 mg 02/22/22 16:08 02/24/22 21:57 Oxycodone 5 Mg Tablet PO 5 mg Q4HR PRN Administration Pain 5 to 7 Pantoprazole Sodium 40 mg 02/23/22 09:00 02/28/22 07:14 Pantoprazole 40 Mg Tablet PO 40 mg QDAC PANDA Administration Polyethylene Glycol 17 gm 02/26/22 09:00 02/27/22 08:23 Polyethylene Glycol 3350 17 Gm Packet PO 17 gm DAILY PANDA Administration Sodium Chloride 10 ml 02/22/22 16:08 02/28/22 05:16 Sodium Chloride Flush 0.9% 10 Ml Syringe IVP 10 ml PRN PRN Administration NEEDED PER PROVIDER ORDERS Sodium Chloride 10 ml 02/22/22 17:00 02/27/22 20:37 Sodium Chloride Flush 0.9% 10 Ml Syringe IVP 10 ml 0100,0900,1700 PANDA Administration Spironolactone 25 mg 02/26/22 09:00 02/27/22 08:24 Spironolactone 25 Mg Tablet PO 25 mg DAILY PANDA Administration - Lab Result Fish Bone Diagrams: 02/28/22 06:17 02/28/22 06:17 Objective Vital Signs: Vital Signs - 24 hr 02/27/22 02/27/22 02/27/22 07:28 08:00 09:00 Temperature 36.8 C Heart Rate 69 Heart Rate [ 69 69 Monitoring electrodes] Heart Rate [ Sitting] Heart Rate [ Supine] Respiratory 14 16 Rate Blood Pressure 126/68 113/56 L [Right Brachial artery] Blood Pressure [Sitting] Blood Pressure [Supine] O2 Saturation 100 95 02/27/22 02/27/22 02/27/22 10:00 11:00 12:00 Temperature 37.4 C Heart Rate Heart Rate [ 69 69 69 Monitoring electrodes] Heart Rate [ Sitting] Heart Rate [ Supine] Respiratory 16 13 15 Rate Blood Pressure 103/55 L 107/59 L 109/58 L [Right Brachial artery] Blood Pressure [Sitting] Blood Pressure [Supine] O2 Saturation 100 100 100 02/27/22 02/27/22 02/27/22 12:15 13:00 14:00 Temperature Heart Rate Heart Rate [ 69 69 Monitoring electrodes] Heart Rate [ 74 Sitting] Heart Rate [ 69 Supine] Respiratory 14 20 Rate Blood Pressure 99/53 L 99/53 L [Right Brachial artery] Blood Pressure 125/69 [Sitting] Blood Pressure 109/58 L [Supine] O2 Saturation 94 96 02/27/22 02/27/2202/27/22 14:30 15:00 16:00 Temperature Heart Rate 69 Heart Rate [ 69 69 Monitoring electrodes] Heart Rate [ Sitting] Heart Rate [ Supine] Respiratory 14 14 Rate Blood Pressure 115/84 H 125/67 [Right Brachial artery] Blood Pressure [Sitting] Blood Pressure [Supine] O2 Saturation 100 100 02/27/22 02/27/22 02/27/22 17:00 18:00 19:00 Temperature Heart Rate Heart Rate [ 69 69 69 Monitoring electrodes] Heart Rate [ Sitting] Heart Rate [ Supine] Respiratory 15 18 16 Rate Blood Pressure 124/67 134/70 H 97/53 L [Right Brachial artery] Blood Pressure [Sitting] Blood Pressure [Supine] O2 Saturation 94 100 95 02/27/22 02/27/22 02/27/22 19:35 20:00 21:00 Temperature 37.3 C Heart Rate 75 Heart Rate [ 69 69 Monitoring electrodes] Heart Rate [ Sitting] Heart Rate [ Supine] Respiratory 20 15 21 Rate Blood Pressure 136/65 H 110/56 L [Right Brachial artery] Blood Pressure [Sitting] Blood Pressure [Supine] O2 Saturation 100 95 02/27/22 02/27/22 02/27/22 22:00 23:00 23:15 Temperature Heart Rate 69 Heart Rate [ 69 69 Monitoring electrodes] Heart Rate [ Sitting] Heart Rate [ Supine] Respiratory 15 13 Rate Blood Pressure 107/58 L 107/54 L [Right Brachial artery] Blood Pressure [Sitting] Blood Pressure [Supine] O2 Saturation 97 97 02/28/22 02/28/22 02/28/22 00:00 00:23 01:00 Temperature 37.4 C Heart Rate Heart Rate [ 72 69 Monitoring electrodes] Heart Rate [ Sitting] Heart Rate [ Supine] Respiratory 15 20 16 Rate Blood Pressure 96/47 L 100/49 L [Right Brachial artery] Blood Pressure [Sitting] Blood Pressure [Supine] O2 Saturation 85 L 96 96 02/28/22 02/28/22 02/28/22 01:30 02:00 03:00 Temperature Heart Rate 69 Heart Rate [ 69 69 Monitoring electrodes] Heart Rate [ Sitting] Heart Rate [ Supine] Respiratory 15 18 Rate Blood Pressure 104/50 L 95/43 L [Right Brachial artery] Blood Pressure [Sitting] Blood Pressure [Supine] O2 Saturation 93 90 L 02/28/22 02/28/22 02/28/22 04:00 05:00 05:20 Temperature 37.3 C Heart Rate 69 Heart Rate [ 69 69 Monitoring electrodes] Heart Rate [ Sitting] Heart Rate [ Supine] Respiratory 14 18 Rate Blood Pressure 106/56 L 104/57 L [Right Brachial artery] Blood Pressure [Sitting] Blood Pressure [Supine] O2 Saturation 99 94 02/28/22 06:00 Temperature Heart Rate Heart Rate [ 69 Monitoring electrodes] Heart Rate [ Sitting] Heart Rate [ Supine] Respiratory 12 Rate Blood Pressure 113/56 L [Right Brachial artery] Blood Pressure [Sitting] Blood Pressure [Supine] O2 Saturation 96 Oxygen O2 Source BIPAP Oxygen Flow Rate 4 I&O (Last 24 Hrs): Intake and Output Totals x24h 02/26/22 02/27/22 02/28/22 23:59 23:59 23:59 Intake Total 1220 920 250 Output Total 1419 2245 350 Balance -199 -1325 -100 - Results Results: Laboratory Results WBC 7.8 x10^3/uL (4.8-10.8) 02/28/22 06:17 RBC 3.26 10^6/uL (4.20-5.40) L 02/28/22 06:17 Hgb 8.8 g/dL (12.0-16.0) L 02/28/22 06:17 Hct 29.1 % (37.0-47.0) L 02/28/22 06:17 MCV 89.3 fL (81.0-99.0) 02/28/22 06:17 MCH 27.0 pg (27.0-31.0) 02/28/22 06:17 MCHC 30.2 g/dL (32.0-36.0) L 02/28/22 06:17 RDW 19.5 % (12.0-15.0) H 02/28/22 06:17 Plt Count 255 10^3/uL (130-450) 02/28/22 06:17 MPV 10.3 fL (7.9-10.8) 02/28/22 06:17 Reticulocyte % (Auto) 4.38 % (0.5-2.3) H 02/22/22 21:18 Neut # (Auto) 5.0 10^3/uL (1.5-6.6) 02/28/22 06:17 Lymph # (Auto) 1.7 10^3/uL (1.5-3.5) 02/28/22 06:17 [place] # (Auto) 0.8 10^3/uL (0.0-1.0) 02/28/22 06:17 Eos # (Auto) 0.2 10^3/uL (0.0-0.7) 02/28/22 06:17 Baso # (Auto) 0.0 10^3/uL (0.0-0.1) 02/28/22 06:17 Absolute Nucleated RBC 0.00 x10^3/uL 02/28/22 06:17 Nucleated RBC % 0.0 /100WBC 02/28/22 06:17 Absolute Retic 0.144 10^6/uL (0.020-0.110) H 02/22/22 21:18 PT 12.7 secs (9.9-12.6) H 02/22/22 12:51 INR 1.1 (0.8-1.2) 02/22/22 12:51 Bld Gas Analysis Time 0619 02/26/22 06:15 Sample Site RIGHT RADIAL 02/26/22 06:15 ABG pH 7.39 (7.35-7.45) 02/26/22 06:15 ABG pCO2 52 mmHg (34-45) H 02/26/22 06:15 ABG pO2 61 mmHg (80-100) L 02/26/22 06:15 ABG HCO3 30.8 mmol/L (22.0-26.0) H 02/26/22 06:15 ABG Total CO2 32.4 MMOL/L (21.0-29.0) H 02/26/22 06:15 ABG O2 Saturation 90 % (94-98) L 02/26/22 06:15 ABG Base Excess 5.0 mmol/L (-2.0-3.0) H 02/26/22 06:15 Néstor Test POSITIVE 02/26/22 06:15 VBG pH 7.503 (7.31-7.41) H 02/28/22 06:17 Ionized Calcium 1.04 mmol/L (1.15-1.33) L 02/28/22 06:17 Respiration Rate 16 b/min 02/23/22 04:55 Room Air YES 02/22/22 12:22 O2 Delivery Device BiPAP 02/26/22 06:15 FiO2 40.00 02/26/22 06:15 PEEP 12 cmH2O 02/23/22 04:55 EPAP 5 cmH2O 02/26/22 06:15 IPAP 12 cmH2O 02/26/22 06:15 Sodium 136 mmol/L (135-145) 02/28/22 06:17 Potassium 4.0 mmol/L (3.5-5.0) 02/28/22 06:17 Chloride 95 mmol/L (101-111) L 02/28/22 06:17 Carbon Dioxide 32 mmol/L (21-32) 02/28/22 06:17 Anion Gap 9.0 (6-13) 02/28/22 06:17 BUN 24 mg/dL (6-20) H 02/28/22 06:17 Creatinine 1.2 mg/dL (0.4-1.0) H 02/28/22 06:17 Estimated GFR (MDRD) 53 (>89) L 02/28/22 06:17 Glucose 134 mg/dL (70-100) H 02/28/22 06:17 POC Whole Bld Glucose 253 mg/dL (70 - 100) H 02/27/22 20:27 Estimat Average Glucose 180 mg/dL (70-100) H 02/24/22 04:10 Hemoglobin A1c % 7.9 % (4.27-6.07) H 02/24/22 04:10 Lactic Acid 1.2 mmol/L (0.5-2.2) 02/22/22 11:48 Calcium 8.5 mg/dL (8.5-10.3) 02/28/22 06:17 Phosphorus 3.0 mg/dL (2.5-4.6) 02/28/22 06:17 Magnesium 1.9 mg/dL (1.7-2.8) 02/28/22 06:17 Iron 39 ug/dL (28-170) 02/22/22 21:18 TIBC 379 ug/dL (250-450) 02/22/22 21:18 % Saturation 10 % (20-50) L 02/22/22 21:18 Transferrin 271 mg/dL (192-382) 02/22/22 21:18 Ferritin 27.0 ng/mL (11.0-306.8) 02/22/22 21:18 Total Bilirubin 2.3 mg/dL (0.2-1.0) H 02/22/22 12:51 AST 15 IU/L (10-42) 02/22/22 12:51 ALT 14 IU/L (10-60) 02/22/22 12:51 Alkaline Phosphatase 119 IU/L (42-121) 02/22/22 12:51 Ammonia 15.1 umol/L (7-35) 02/23/22 05:55 Lactate Dehydrogenase 227 IU/L (91-225) H 02/22/22 21:18 Troponin I High Sens 45.0 ng/L (2.3-14.8) H* 02/23/22 16:04 B-Natriuretic Peptide 479 pg/mL (5-100) H 02/28/22 06:17 Total Protein 6.8 g/dL (6.7-8.2) 02/22/22 12:51 Albumin 2.7 g/dL (3.2-5.5) L 02/26/22 04:09 Globulin 3.5 g/dL (2.1-4.2) 02/22/22 12:51 Albumin/Globulin Ratio 0.9 (1.0-2.2) L 02/22/22 12:51 Lipase 53 U/L (22-51) H 02/22/22 12:51 Vitamin B12 420 pg/mL (180-914) 02/26/22 04:09 Folate 10.69 ng/mL (5.90 - >24.8) 02/26/22 04:09 TSH 1.23 uIU/mL (0.34-5.60) 02/23/22 05:55 Urine Color YELLOW 02/22/22 13:06 Urine Clarity CLEAR (CLEAR) 02/22/22 13:06 Urine pH 5.5 PH (5.0-7.5) 02/22/22 13:06 Ur Specific [place] >=1.030 (1.002-1.030) H 02/22/22 13:06 Urine Protein 30 mg/dL (NEGATIVE) H 02/22/22 13:06 Urine Glucose (UA) NEGATIVE mg/dL (NEGATIVE) 02/22/22 13:06 Urine Ketones NEGATIVE mg/dL (NEGATIVE) 02/22/22 13:06 Urine Occult Blood NEGATIVE (NEGATIVE) 02/22/22 13:06 Urine Nitrite NEGATIVE (NEGATIVE) 02/22/22 13:06 Urine Bilirubin NEGATIVE (NEGATIVE) 02/22/22 13:06 Urine Urobilinogen 2 E.U./dL (NORMAL) H 02/22/22 13:06 Ur Leukocyte Esterase TRACE (NEGATIVE) H 02/22/22 13:06 Urine RBC 0-5 /HPF (0-5) 02/22/22 13:06 Urine WBC 6-10 /HPF (0-5) H 02/22/22 13:06 Ur Squamous Epith Cells RARE Squamous (<= Few) 02/22/22 13:06 Urine Bacteria Many /HPF (None Seen) H 02/22/22 13:06 Ur Microscopic Review INDICATED 02/22/22 13:06 Urine Culture Comments INDICATED 02/22/22 13:06 Nasal Adenovirus (PCR) NOT DETECTED 02/22/22 12:15 Nasal B. parapertussis DNA (PCR) NOT DETECTED 02/22/22 12:15 Nasal Coronavir 229E PCR NOT DETECTED 02/22/22 12:15 Nasal Coronavir HKU1 PCR NOT DETECTED 02/22/22 12:15 Nasal Coronavir NL63 PCR NOT DETECTED 02/22/22 12:15 Nasal Coronavir OC43 PCR NOT DETECTED 02/22/22 12:15 Nasal Enterovir/Rhinovir PCR NOT DETECTED 02/22/22 12:15 Nasal Influenza B PCR NOT DETECTED 02/22/22 12:15 Nasal Influenza A PCR NOT DETECTED 02/22/22 12:15 Nasal Parainfluen 1 PCR NOT DETECTED 02/22/22 12:15 Nasal Parainfluen 2 PCR NOT DETECTED 02/22/22 12:15 Nasal Parainfluen 3 PCR NOT DETECTED 02/22/22 12:15 Nasal Parainfluen 4 PCR NOT DETECTED 02/22/22 12:15 Nasal RSV (PCR) NOT DETECTED 02/22/22 12:15 Nasal Screen MRSA (PCR) NEGATIVE (NEGATIVE) 02/22/22 21:15 Nasal B.pertussis DNA PCR NOT DETECTED 02/22/22 12:15 Nasal C.pneumoniae (PCR) NOT DETECTED 02/22/22 12:15 Benito Human Metapneumo PCR NOT DETECTED 02/22/22 12:15 Nasal M.pneumoniae (PCR) NOT DETECTED 02/22/22 12:15 Nasal SARS-CoV-2 (PCR) NOT DETECTED 02/22/22 12:15 Last Dose Date UNKNOWN 02/22/22 12:51 Last Dose Time UNKNOWN 02/22/22 12:51 Digoxin 0.9 ng/mL 02/22/22 12:51 Urine Opiates Screen NEGATIVE (NEGATIVE) 02/22/22 13:06 Ur Oxycodone Screen NEGATIVE (NEGATIVE) 02/22/22 13:06 Urine Methadone Screen NEGATIVE (NEGATIVE) 02/22/22 13:06 Ur Propoxyphene Screen NEGATIVE (NEGATIVE) 02/22/22 13:06 Ur Barbiturates Screen NEGATIVE (NEGATIVE) 02/22/22 13:06 Ur Tricyclics Screen NEGATIVE (NEGATIVE) 02/22/22 13:06 Ur Phencyclidine Scrn NEGATIVE (NEGATIVE) 02/22/22 13:06 Ur Amphetamine Screen NEGATIVE (NEGATIVE) 02/22/22 13:06 U Methamphetamines Scrn NEGATIVE (NEGATIVE) 02/22/22 13:06 U Benzodiazepines Scrn NEGATIVE (NEGATIVE) 02/22/22 13:06 Urine Cocaine Screen NEGATIVE (NEGATIVE) 02/22/22 13:06 U Cannabinoids Screen NEGATIVE (NEGATIVE) 02/22/22 13:06
[2022-02-28] MEDS: METOPROLOL SUCCINATE 50 MG TABLET PO SCH ×2 (08:00→20:56)
[2022-02-28] MEDS: ACETAMINOPHEN 325 MG TABLET PO PRN (08:00)
[2022-02-28] MEDS: polyethylene glycoL 3350 17 GM PACKET PO SCH (08:00)
[2022-02-28] MEDS: ASPIRIN CHEW 81 MG TABLET PO SCH (08:00)
[2022-02-28] MEDS: SPIRONOLACTONE 25 MG TABLET PO SCH (08:00)
[2022-02-28] MEDS: lisinopriL 20 MG TABLET PO SCH (08:00)
[2022-02-28] MEDS: DIGOXIN 125 MCG TABLET PO SCH (08:00)
[2022-02-28] MEDS: INSULIN ASPART 300 UNIT/3 ML PEN SUBQ SCH ×4 (08:15→20:59)
[2022-02-28] MEDS: SODIUM CHLORIDE FLUSH 0.9% 10 ML SYRINGE IVP SCH ×3 (09:00→20:59)
[2022-02-28] MEDS: ZINC OXIDE 20% OINT 30 GM TUBE TOP PRN ×2 (10:15→21:18)
[2022-02-28] MEDS: IPRATROPIUM/ALBUTEROL 3 ML NEB INH PRN (18:36)
[2022-02-28] MEDS: ATORVASTATIN 10 MG TABLET PO SCH (20:56)
[2022-03-01] MEDS: ZINC OXIDE 20% OINT 30 GM TUBE TOP PRN (04:42)
[2022-03-01] MEDS: SODIUM CHLORIDE FLUSH 0.9% 10 ML SYRINGE IVP PRN ×2 (04:42→06:36)
[2022-03-01] MEDS: FUROSEMIDE 40 MG/4 ML VIAL IVP SCH (06:35)
[2022-03-01] MEDS: PANTOPRAZOLE 40 MG TABLET PO SCH (06:36)
[2022-03-01] MEDS: LEVOTHYROXINE 125 MCG TABLET PO SCH (06:36)
[2022-03-01] MEDS: BUDESONIDE 0.5 MG/2 ML NEB INH SCH ×2 (07:05→19:36)
[2022-03-01] MEDS: FORMOTEROL FUMARATE NEB 20 MCG/2 ML INH SCH ×2 (07:05→19:36)
--- NOTE | 2022-03-01 07:26 | PROVIDER PROGRESS NOTE ---
Assessment/Plan - Problem List (1) Acute exacerbation of CHF (congestive heart failure) Qualifiers: Heart failure type: unspecified Qualified Code(s): I50.9 - Heart failure, unspecified Assessment/Plan: 03/01/22 Patient has significantly improved. She was off the BiPAP for most of the day yesterday and has been on 6 L via Oxymizer all morning into the afternoon today IV Lasix discontinued today and Lasix 40 mg p.o. daily ordered to start on morning. This was due to patient's creatinine increasing to 1.5. We will continue to monitor renal function. Patient's daughters wish to proceed with further work-up regarding significantly decreased ejection fraction of 25% when compared to an EF of 80 in June 2021. I made a call to the [facility] to speak to the paper grader. Awaiting a callback. Patient has been seen by physical therapy who recommended custodial facility for rehab. We will ask social work to facilitate placement pending cardiology's input 02/28/22 BNP 479 today Patient continues on bipap Documentation for trilogy submitted to insurance Patient eager to attempt sitting up in recliner We will continue current therapy with medications as listed below. Today 02/27/2022 I discussed the patient's new EF of 25% with daughter seeking direction regarding for further work-up to possibly involve a cardiac angiogram. Awaiting response. 02/27/22 No change in clinical condition from yesterday. We will continue current therapy as listed below. 02/26/22 A limited bedside 2D echocardiogram done by my colleague Dr. Che overnight Moderate-severe left atrial and right atrial enlargement. Massive right ventricular enlargement with poor RV function. A pacemaker is seen in the right heart. LV size is normal with moderate global hypokinesis but severe apical hypokinesis, LVEF 25%. Brief Doppler exam was done that shows moderate tricuspid regurgitation, but a PA pressure could not be calculated by the CW Doppler. She also has a small loculated posterior pericardial effusion. I received records from [facility] today 02/26/22 which showed on June 27, 2021 patient had a 2D echocardiogram which showed normal global and regional left ventricular systolic function. Left systolic function was hyperdynamic. Ejection fraction was estimated at 80%. There was mild to moderate concentric left ventricular hypertrophy. Furthermore in 2019 her EF was between 50 and 55%. Lasix 40 mg IV twice daily was resumed since she still has a pericardial effusion, new bilateral pleural effusions on chest x-ray. Diltiazem was discontinued. Spironolactone 25mg po daily was added. Lisinopril was decreased from 40 mg p.o. twice daily down to 10 mg p.o. daily. Metoprolol succinate 50 mg p.o. twice daily was continued and digoxin was continued. We will continue to monitor patient's I/O's. She continues to be significantly BiPAP dependent. 02/25/22 Patient tolerated being off the BiPAP between 8 AM and 6 PM on 02/24/2022. We will attempt to keep the patient off the BiPAP during the day and on at night today 02/25/2022. IV Lasix discontinued. Lasix 40 mg p.o. daily ordered. BNP was 824 this morning. We will continue to monitor. Continue digoxin, metoprolol succinate and lisinopril. 02/24/22 Patient was more responsive/alert today. Another attempt to wean her off the BiPAP was done today. Currently on 10 L of oxygen year high flow nasal cannula with oxygen saturation in the high 90s. Continue Lasix 40 mg IV twice daily. BNP improved from 1146 down to 663. We will continue patient's medications as listed below. She is able to tolerate oral intake at this time. We will discontinue IV metoprolol. Chest x-ray done 02/24/22 morning showed cardiomegaly with prominent pulmonary vasculature and small bilateral pleural effusions most likely secondary to CHF. Next goal would be to see if patient can work with physical therapy on 02/25/22. (2) Acute respiratory failure with hypoxia and hypercapnia Assessment/Plan: 03/01/22 Improving Patient has been increasingly off the BiPAP during the day for longer durations in the past 2 days. Required documentation for a trilogy has been submitted. Awaiting delivery 02/28/22 This is acute on chronic respiratory failure. Multifactorial secondary to CHF exacerbation (acutely). A limited bedside 2D echocardiogram done on 02/25/22 showed an ejection fraction of 25%. Patient also has history of obstructive sleep apnea/obesity hypoventilation syndrome and history of sarcoidosis. (3) Hypertension Assessment/Plan: Controlled. On lasix 40mg po daily, Lisinopril 10 mg p.o. daily, spironolactone 25 mg p.o. daily and Metoprolol succinate 50 mg p.o. twice daily (4) Contusion, chest wall Qualifiers: Encounter type: initial encounter (5) History of atrial flutter Assessment/Plan: On metoprolol succinate 50 mg p.o. twice daily and digoxin 125 mcg p.o. daily. (6) CHELITA (obstructive sleep apnea) Assessment/Plan: Currently on the BiPAP intermittently. (7) Type 2 diabetes mellitus, without long-term current use of insulin Qualifiers: Diabetes mellitus complication status: without complication Qualified Code(s): E11.9 - Type 2 diabetes mellitus without complications Assessment/Plan: HgA1C was 7.9. Accu-Cheks before every meal at bedtime. Sliding scale insulin. (8) Hematoma of left breast Assessment/Plan: Secondary to contusion following fall at home. It was an unwitnessed fall. Ultrasound of the breast done 02/23/22 showed a hematoma measuring 11.2 x 5.7 x 11 cm. Hemoglobin this morning was 9.4. Will repeat hemoglobin in the afternoon and address accordingly. Lovenox for DVT prophylaxis discontinued. (9) Anemia Qualifiers: Anemia type: unspecified type Qualified Code(s): D64.9 - Anemia, un specified Assessment/Plan: Secondary to contusion following a fall at home. It was an unwitnessed fall. Ultrasound of the breast done 02/23/22 showed a hematoma measuring 11.2 x 5.7 x 11 cm. Hemoglobin this morning was 9.4. Will repeat hemoglobin in the afternoon and address accordingly. Lovenox for DVT prophylaxis discontinued. (10) Hypothyroidism Assessment/Plan: On Synthroid 125 mcg p.o. daily AC (11) Hyperlipidemia Assessment/Plan: Atorvastatin 20 mg p.o. daily (12) GERD (gastroesophageal reflux disease) Assessment/Plan: Protonix 40 mg p.o. daily AC. (13) History of coronary artery disease Assessment/Plan: With stent to the LAD in 2017. She is on metoprolol succinate, lisinopril, atorvastatin, Baby aspirin (14) History of sarcoidosis Assessment/Plan: Treatment/ duration of treatment unknown (15) Pericardial effusion Assessment/Plan: Patient had history of pericardial effusion in the past for which records that she had a pericardial window done. Limited bedside 2D echocardiogram indicated some pericardial effusion on 02/25/2022 - Current Meds Current Meds: Current Medications Generic Name Dose Route Start Last Admin Trade Name Freq PRN Reason Stop Dose Admin Acetaminophen 650 mg 02/22/22 16:08 02/28/22 08:00 Acetaminophen 325 Mg Tablet PO 650 mg Q4HR PRN Administration Pain 1 to 4, or Fever Albuterol/Ipratropium 3 ml 02/26/22 18:19 02/28/22 18:36 Ipratropium/Albuterol 3 Ml Neb INH 3 ml Q4HR PRN Administration Wheezing Aspirin 81 mg 02/23/22 09:00 02/28/22 08:00 Aspirin Chew 81 Mg Tablet PO 81 mg DAILY PANDA Administration Atorvastatin Calcium 20 mg 02/23/22 21:00 02/28/22 20:56 Atorvastatin 10 Mg Tablet PO 20 mg QPM PANDA Administration Budesonide 0.5 mg 02/26/22 19:00 02/28/22 18:36 Budesonide 0.5 Mg/2 Ml Neb INH 0.5 mg RTBID PANDA Administration Digoxin 125 mcg 02/23/22 09:00 02/28/22 08:00 Digoxin 125 Mcg Tablet PO 125 mcg DAILY PANDA Administration Formoterol Fumarate 20 mcg 02/26/22 19:00 02/28/22 18:36 Formoterol Fumarate Neb 20 Mcg/2 Ml INH 20 mcg RTBID PANDA Administration Insulin Aspart 3 - 11 unit 02/28/22 08:00 02/28/22 20:59 Insulin Aspart 300 Unit/3 Ml Pen SUBQ 5 unit 0800,1200,1700,2100 PANDA Administration Protocol Levothyroxine Sodium 125 mcg 02/24/22 07:00 03/01/22 06:36 Levothyroxine 125 Mcg Tablet PO 125 mcg QDAC PANDA Administration Lisinopril 10 mg 02/26/22 09:00 02/28/22 08:00 Lisinopril 20 Mg Tablet PO 10 mg DAILY PANDA Administration Metoprolol Succinate 50 mg 02/23/22 09:00 02/28/22 20:56 Metoprolol Succinate 50 Mg Tablet PO 50 mg BID PANDA Administration Multi-Ingredient Ointment 1 applic 02/28/22 04:59 03/01/22 04:42 Zinc Oxide 20% Oint 30 Gm Tube TOP 1 applic PRN PRN Administration Skin Care Oxycodone HCl 5 mg 02/22/22 16:08 02/24/22 21:57 Oxycodone 5 Mg Tablet PO 5 mg Q4HR PRN Administration Pain 5 to 7 Pantoprazole Sodium 40 mg 02/23/22 09:00 03/01/22 06:36 Pantoprazole 40 Mg Tablet PO 40 mg QDAC PANDA Administration Polyethylene Glycol 17 gm 02/26/22 09:00 02/28/22 08:00 Polyethylene Glycol 3350 17 Gm Packet PO 17 gm DAILY PANDA Administration Sodium Chloride 10 ml 02/22/22 16:08 03/01/22 06:36 Sodium Chloride Flush 0.9% 10 Ml Syringe IVP 10 ml PRN PRN Administration NEEDED PER PROVIDER ORDERS Sodium Chloride 10 ml 02/22/22 17:00 02/28/22 20:59 Sodium Chloride Flush 0.9% 10 Ml Syringe IVP 10 ml 0100,0900,1700 PANDA Administration Spironolactone 25 mg 02/26/22 09:00 02/28/22 08:00 Spironolactone 25 Mg Tablet PO 25 mg DAILY PANDA Administration - Lab Result Fish Bone Diagrams: 03/01/22 07:49 03/01/22 07:49 - Additional Planning My Orders: My Active Orders 03/01/22 07:10 BMP - BASIC METABOLIC PANEL [CHEM] Stat CBC - COMP BLD CT W/AUTO DIFF [HEME] Stat 03/01/22 14:00 FUROSEMIDE INJ 40mg VIAL [LASIX INJ 40 mg VIAL] 20 mg IVP BIDDIURETIC 03/02/22 05:00 BMP - BASIC METABOLIC PANEL [CHEM] DAILYLAB CBC - COMP BLD CT W/AUTO DIFF [HEME] DAILYLAB 03/03/22 05:00 BMP - BASIC METABOLIC PANEL [CHEM] DAILYLAB CBC - COMP BLD CT W/AUTO DIFF [HEME] DAILYLAB 03/04/22 05:00 BMP - BASIC METABOLIC PANEL [CHEM] DAILYLAB CBC - COMP BLD CT W/AUTO DIFF [HEME] DAILYLAB 03/05/22 05:00 BMP - BASIC METABOLIC PANEL [CHEM] DAILYLAB CBC - COMP BLD CT W/AUTO DIFF [HEME] DAILYLAB 03/06/22 05:00 BMP - BASIC METABOLIC PANEL [CHEM] DAILYLAB CBC - COMP BLD CT W/AUTO DIFF [HEME] DAILYLAB 03/07/22 05:00 BMP - BASIC METABOLIC PANEL [CHEM] DAILYLAB CBC - COMP BLD CT W/AUTO DIFF [HEME] DAILYLAB 03/08/22 05:00 BMP - BASIC METABOLIC PANEL [CHEM] DAILYLAB CBC - COMP BLD CT W/AUTO DIFF [HEME] DAILYLAB Subjective - Subjective Patient Reports: Other (Patient was sitting up in bedside recliner at time of exam. She was on an Oxymizer at 6 L with oxygen saturation greater than 92%. She reports breathing better. For most of the day yesterday she was off the BiPAP.) Objective Vital Signs: Vital Signs - 24 hr 02/28/22 02/28/22 02/28/22 07:32 08:20 08:22 Temperature 37.1 C Heart Rate 69 69 Heart Rate [ 70 Monitoring electrodes] Respiratory 16 20 Rate Blood Pressure 92/46 L [Right Brachial artery] O2 Saturation 91 L 02/28/22 02/28/22 02/28/22 09:00 12:00 13:00 Temperature 36.5 C Heart Rate Heart Rate [ 69 69 69 Monitoring electrodes] Respiratory 15 20 20 Rate Blood Pressure 92/49 L 101/80 100/53 L [Right Brachial artery] O2 Saturation 96 92 96 02/28/22 02/28/22 02/28/22 17:00 18:07 18:35 Temperature 36.5 C Heart Rate 69 85 Heart Rate [ 69 Monitoring electrodes] Respiratory 14 18 Rate Blood Pressure 103/53 L [Right Brachial artery] O2 Saturation 92 02/28/22 02/28/22 03/01/22 19:37 23:00 00:44 Temperature 37.3 C 36.9 C Heart Rate 92 Heart Rate [ 78 Monitoring electrodes] Respiratory Rate Blood Pressure 97/58 L [Right Brachial artery] O2 Saturation 99 03/01/22 03/01/22 03:50 04:00 Temperature 36.9 C Heart Rate 79 Heart Rate [ 80 Monitoring electrodes] Respiratory 25 H Rate Blood Pressure 99/49 L [Right Brachial artery] O2 Saturation 95 Oxygen O2 Source Oxymizer Oxygen Flow Rate 4 I&O (Last 24 Hrs): Intake and Output Totals x24h 02/27/22 02/28/22 03/01/22 23:59 23:59 23:59 Intake Total 920 700 490 Output Total 1896 0172 185 Balance -1325 -512 305 Comments/Notes: General: Alert, Oriented x3, Mild distress HEENT: PERRLA, EOMI Neck: Supple, No JVD Neuro: Alert, Oriented Times 3 Cardiovascular: Regular rate, Normal S1, Normal S2, No murmurs Respiratory: Chest non-tender, No respiratory distress, Breath sounds nml Abdomen: Normal bowel sounds, Soft, No tenderness Extremities: No clubbing, No cyanosis, No edema Skin: No rashes Comments/Notes: bruise across breast - Results Results: Laboratory Results WBC 7.8 x10^3/uL (4.8-10.8) 02/28/22 06:17 RBC 3.26 10^6/uL (4.20-5.40) L 02/28/22 06:17 Hgb 8.8 g/dL (12.0-16.0) L 02/28/22 06:17 Hct 29.1 % (37.0-47.0) L 02/28/22 06:17 MCV 89.3 fL (81.0-99.0) 02/28/22 06:17 MCH 27.0 pg (27.0-31.0) 02/28/22 06:17 MCHC 30.2 g/dL (32.0-36.0) L 02/28/22 06:17 RDW 19.5 % (12.0-15.0) H 02/28/22 06:17 Plt Count 255 10^3/uL (130-450) 02/28/22 06:17 MPV 10.3 fL (7.9-10.8) 02/28/22 06:17 Reticulocyte % (Auto) 4.38 % (0.5-2.3) H 02/22/22 21:18 Neut # (Auto) 5.0 10^3/uL (1.5-6.6) 02/28/22 06:17 Lymph # (Auto) 1.7 10^3/uL (1.5-3.5) 02/28/22 06:17 [place] # (Auto) 0.8 10^3/uL (0.0-1.0) 02/28/22 06:17 Eos # (Auto) 0.2 10^3/uL (0.0-0.7) 02/28/22 06:17 Baso # (Auto) 0.0 10^3/uL (0.0-0.1) 02/28/22 06:17 Absolute Nucleated RBC 0.00 x10^3/uL 02/28/22 06:17 Nucleated RBC % 0.0 /100WBC 02/28/22 06:17 Absolute Retic 0.144 10^6/uL (0.020-0.110) H 02/22/22 21:18 PT 12.7 secs (9.9-12.6) H 02/22/22 12:51 INR 1.1 (0.8-1.2) 02/22/22 12:51 Bld Gas Analysis Time 0619 02/26/22 06:15 Sample Site RIGHT RADIAL 02/26/22 06:15 ABG pH 7.39 (7.35-7.45) 02/26/22 06:15 ABG pCO2 52 mmHg (34-45) H 02/26/22 06:15 ABG pO2 61 mmHg (80-100) L 02/26/22 06:15 ABG HCO3 30.8 mmol/L (22.0-26.0) H 02/26/22 06:15 ABG Total CO2 32.4 MMOL/L (21.0-29.0) H 02/26/22 06:15 ABG O2 Saturation 90 % (94-98) L 02/26/22 06:15 ABG Base Excess 5.0 mmol/L (-2.0-3.0) H 02/26/22 06:15 [place] Test POSITIVE 02/26/22 06:15 VBG pH 7.503 (7.31-7.41) H 02/28/22 06:17 Ionized Calcium 1.04 mmol/L (1.15-1.33) L 02/28/22 06:17 Respiration Rate 16 b/min 02/23/22 04:55 Room Air YES 02/22/22 12:22 O2 Delivery Device BiPAP 02/26/22 06:15 FiO2 40.00 02/26/22 06:15 PEEP 12 cmH2O 02/23/22 04:55 EPAP 5 cmH2O 02/26/22 06:15 IPAP 12 cmH2O 02/26/22 06:15 Sodium 136 mmol/L (135-145) 02/28/22 06:17 Potassium 4.0 mmol/L (3.5-5.0) 02/28/22 06:17 Chloride 95 mmol/L (101-111) L 02/28/22 06:17 Carbon Dioxide 32 mmol/L (21-32) 02/28/22 06:17 Anion Gap 9.0 (6-13) 02/28/22 06:17 BUN 24 mg/dL (6-20) H 02/28/22 06:17 Creatinine 1.2 mg/dL (0.4-1.0) H 02/28/22 06:17 Estimated GFR (MDRD) 53 (>89) L 02/28/22 06:17 Glucose 134 mg/dL (70-100) H 02/28/22 06:17 POC Whole Bld Glucose 186 mg/dL (70 - 100) H 02/28/22 20:53 Estimat Average Glucose 180 mg/dL (70-100) H 02/24/22 04:10 Hemoglobin A1c % 7.9 % (4.27-6.07) H 02/24/22 04:10 Lactic Acid 1.2 mmol/L (0.5-2.2) 02/22/22 11:48 Calcium 8.5 mg/dL (8.5-10.3) 02/28/22 06:17 Phosphorus 3.0 mg/dL (2.5-4.6) 02/28/22 06:17 Magnesium 1.9 mg/dL (1.7-2.8) 02/28/22 06:17 Iron 39 ug/dL (28-170) 02/22/22 21:18 TIBC 379 ug/dL (250-450) 02/22/22 21:18 % Saturation 10 % (20-50) L 02/22/22 21:18 Transferrin 271 mg/dL (192-382) 02/22/22 21:18 Ferritin 27.0 ng/mL (11.0-306.8) 02/22/22 21:18 Total Bilirubin 2.3 mg/dL (0.2-1.0) H 02/22/22 12:51 AST 15 IU/L (10-42) 02/22/22 12:51 ALT 14 IU/L (10-60) 02/22/22 12:51 Alkaline Phosphatase 119 IU/L (42-121) 02/22/22 12:51 Ammonia 15.1 umol/L (7-35) 02/23/22 05:55 Lactate Dehydrogenase 227 IU/L (91-225) H 02/22/22 21:18 Troponin I High Sens 45.0 ng/L (2.3-14.8) H* 02/23/22 16:04 B-Natriuretic Peptide 479 pg/mL (5-100) H 02/28/22 06:17 Total Protein 6.8 g/dL (6.7-8.2) 02/22/22 12:51 Albumin 2.7 g/dL (3.2-5.5) L 02/26/22 04:09 Globulin 3.5 g/dL (2.1-4.2) 02/22/22 12:51 Albumin/Globulin Ratio 0.9 (1.0-2.2) L 02/22/22 12:51 Lipase 53 U/L (22-51) H 02/22/22 12:51 Vitamin B12 420 pg/mL (180-914) 02/26/22 04:09 Folate 10.69 ng/mL (5.90 - >24.8) 02/26/22 04:09 TSH 1.23 uIU/mL (0.34-5.60) 02/23/22 05:55 Urine Color YELLOW 02/22/22 13:06 Urine Clarity CLEAR (CLEAR) 02/22/22 13:06 Urine pH 5.5 PH (5.0-7.5) 02/22/22 13:06 Ur Specific [place] >=1.030 (1.002-1.030) H 02/22/22 13:06 Urine Protein 30 mg/dL (NEGATIVE) H 02/22/22 13:06 Urine Glucose (UA) NEGATIVE mg/dL (NEGATIVE) 02/22/22 13:06 Urine Ketones NEGATIVE mg/dL (NEGATIVE) 02/22/22 13:06 Urine Occult Blood NEGATIVE (NEGATIVE) 02/22/22 13:06 Urine Nitrite NEGATIVE (NEGATIVE) 02/22/22 13:06 Urine Bilirubin NEGATIVE (NEGATIVE) 02/22/22 13:06 Urine Urobilinogen 2 E.U./dL (NORMAL) H 02/22/22 13:06 Ur Leukocyte Esterase TRACE (NEGATIVE) H 02/22/22 13:06 Urine RBC 0-5 /HPF (0-5) 02/22/22 13:06 Urine WBC 6-10 /HPF (0-5) H 02/22/22 13:06 Ur Squamous Epith Cells RARE Squamous (<= Few) 02/22/22 13:06 Urine Bacteria Many /HPF (None Seen) H 02/22/22 13:06 Ur Microscopic Review INDICATED 02/22/22 13:06 Urine Culture Comments INDICATED 02/22/22 13:06 Nasal Adenovirus (PCR) NOT DETECTED 02/22/22 12:15 Nasal B. parapertussis DNA (PCR) NOT DETECTED 02/22/22 12:15 Nasal Coronavir 229E PCR NOT DETECTED 02/22/22 12:15 Nasal Coronavir HKU1 PCR NOT DETECTED 02/22/22 12:15 Nasal Coronavir NL63 PCR NOT DETECTED 02/22/22 12:15 Nasal Coronavir OC43 PCR NOT DETECTED 02/22/22 12:15 Nasal Enterovir/Rhinovir PCR NOT DETECTED 02/22/22 12:15 Nasal Influenza B PCR NOT DETECTED 02/22/22 12:15 Nasal Influenza A PCR NOT DETECTED 02/22/22 12:15 Nasal Parainfluen 1 PCR NOT DETECTED 02/22/22 12:15 Nasal Parainfluen 2 PCR NOT DETECTED 02/22/22 12:15 Nasal Parainfluen 3 PCR NOT DETECTED 02/22/22 12:15 Nasal Parainfluen 4 PCR NOT DETECTED 02/22/22 12:15 Nasal RSV (PCR) NOT DETECTED 02/22/22 12:15 Nasal Screen MRSA (PCR) NEGATIVE (NEGATIVE) 02/22/22 21:15 Nasal B.pertussis DNA PCR NOT DETECTED 02/22/22 12:15 Nasal C.pneumoniae (PCR) NOT DETECTED 02/22/22 12:15 Benito Human Metapneumo PCR NOT DETECTED 02/22/22 12:15 Nasal M.pneumoniae (PCR) NOT DETECTED 02/22/22 12:15 Nasal SARS-CoV-2 (PCR) NOT DETECTED 02/22/22 12:15 Stl C. diff Tox B Gene NEGATIVE (NEGATIVE) 02/28/22 16:11 Last Dose Date UNKNOWN 02/22/22 12:51 Last Dose Time UNKNOWN 02/22/22 12:51 Digoxin 0.9 ng/mL 02/22/22 12:51 Urine Opiates Screen NEGATIVE (NEGATIVE) 02/22/22 13:06 Ur Oxycodone Screen NEGATIVE (NEGATIVE) 02/22/22 13:06 Urine Methadone Screen NEGATIVE (NEGATIVE) 02/22/22 13:06 Ur Propoxyphene Screen NEGATIVE (NEGATIVE) 02/22/22 13:06 Ur Barbiturates Screen NEGATIVE (NEGATIVE) 02/22/22 13:06 Ur Tricyclics Screen NEGATIVE (NEGATIVE) 02/22/22 13:06 Ur Phencyclidine Scrn NEGATIVE (NEGATIVE) 02/22/22 13:06 Ur Amphetamine Screen NEGATIVE (NEGATIVE) 02/22/22 13:06 U Methamphetamines Scrn NEGATIVE (NEGATIVE) 02/22/22 13:06 U Benzodiazepines Scrn NEGATIVE (NEGATIVE) 02/22/22 13:06 Urine Cocaine Screen NEGATIVE (NEGATIVE) 02/22/22 13:06 U Cannabinoids Screen NEGATIVE (NEGATIVE) 02/22/22 13:06 ABX Reporting Has patient been on IV antibiotics over the past 48 hours?: No
[2022-03-01 07:55] LABS: CALCIUM, IONIZED 1.11 mmol/L (1.15-1.33); VBG PH 7.425 (7.31-7.41)
[2022-03-01 07:57] LABS: BASOPHILS # (AUTO) 0.1 10^3/uL (0.0-0.1); BASOPHILS % (AUTO) 0.7 %; EOSINOPHILS # (AUTO) 0.2 10^3/uL (0.0-0.7); EOSINOPHILS % (AUTO) 3.1 %; HCT - HEMATOCRIT 31.3 % (37.0-47.0); HGB - HEMOGLOBIN 9.4 g/dL (12.0-16.0); LYMPHOCYTES # (AUTO) 1.6 10^3/uL (1.5-3.5); LYMPHOCYTES % (AUTO) 21.4 %; MEAN CORPUSCULAR VOLUME 89.9 fL (81.0-99.0); MEAN PLATELET VOLUME 9.8 fL (7.9-10.8); MONOCYTES # (AUTO) 0.8 10^3/uL (0.0-1.0); MONOCYTES % (AUTO) 10.1 %; NEUTROPHILS # (AUTO) 4.8 10^3/uL (1.5-6.6); NEUTROPHILS % (AUTO) 64.2 %; PLT - PLATELET COUNT 271 10^3/uL (130-450); RED BLOOD COUNT 3.48 10^6/uL (4.20-5.40); RED CELL DISTRIBUTION WIDTH 19.1 % (12.0-15.0); WHITE BLOOD COUNT 7.5 x10^3/uL (4.8-10.8)
[2022-03-01 08:03] LABS: CALCIUM 8.6 mg/dL (8.5-10.3); CREATININE 1.5 mg/dL (0.4-1.0); POTASSIUM 3.9 mmol/L (3.5-5.0)
[2022-03-01] MEDS: INSULIN ASPART 300 UNIT/3 ML PEN SUBQ SCH ×4 (08:20→20:53)
[2022-03-01] MEDS: ASPIRIN CHEW 81 MG TABLET PO SCH (08:29)
[2022-03-01] MEDS: DIGOXIN 125 MCG TABLET PO SCH (08:29)
[2022-03-01] MEDS: polyethylene glycoL 3350 17 GM PACKET PO SCH (08:29)
[2022-03-01] MEDS: SPIRONOLACTONE 25 MG TABLET PO SCH (08:30)
[2022-03-01] MEDS ORDERED: POTASSIUM CHLORIDE 20 MEQ TABLET PO ONE (08:41)
[2022-03-01 08:57] LABS: MAGNESIUM 1.9 mg/dL (1.7-2.8)
[2022-03-01] MEDS: METOPROLOL SUCCINATE 50 MG TABLET PO SCH ×2 (09:59→20:50)
[2022-03-01] MEDS: lisinopriL 20 MG TABLET PO SCH (09:59)
[2022-03-01] MEDS: SODIUM CHLORIDE FLUSH 0.9% 10 ML SYRINGE IVP SCH ×3 (10:00→20:54)
[2022-03-01] MEDS ORDERED: PSYLLIUM PACKET PO PRN (10:43)
[2022-03-01] MEDS: IPRATROPIUM/ALBUTEROL 3 ML NEB INH PRN (12:00)
[2022-03-01] MEDS: LACTOBACILLUS RHAMNOSUS GG CAPSULE PO SCH (12:21)
[2022-03-01] MEDS: MULTIVITAMIN W/MINERALS TABLET PO SCH (12:21)
[2022-03-01] MEDS ORDERED: FUROSEMIDE 20 MG/2 ML VIAL IVP SCH (14:00)
[2022-03-01] MEDS: ATORVASTATIN 10 MG TABLET PO SCH (20:50)
[2022-03-02 04:39] LABS: CALCIUM 8.4 mg/dL (8.5-10.3); CREATININE 1.5 mg/dL (0.4-1.0); MAGNESIUM 1.8 mg/dL (1.7-2.8); PHOSPHORUS 2.6 mg/dL (2.5-4.6); POTASSIUM 4.4 mmol/L (3.5-5.0)
[2022-03-02] MEDS: PANTOPRAZOLE 40 MG TABLET PO SCH (06:28)
[2022-03-02] MEDS: MAGNESIUM OXIDE 400 MG TABLET PO SCH ×2 (06:29→12:14)
[2022-03-02] MEDS: LEVOTHYROXINE 125 MCG TABLET PO SCH (06:29)
[2022-03-02] MEDS: BUDESONIDE 0.5 MG/2 ML NEB INH SCH ×2 (07:12→20:55)
[2022-03-02] MEDS: FORMOTEROL FUMARATE NEB 20 MCG/2 ML INH SCH ×2 (07:12→20:56)
[2022-03-02] MEDS: INSULIN ASPART 300 UNIT/3 ML PEN SUBQ SCH ×4 (08:08→20:42)
[2022-03-02] MEDS: ASPIRIN CHEW 81 MG TABLET PO SCH (08:29)
[2022-03-02] MEDS: DIGOXIN 125 MCG TABLET PO SCH (08:30)
[2022-03-02] MEDS: lisinopriL 20 MG TABLET PO SCH (08:30)
[2022-03-02] MEDS: LACTOBACILLUS RHAMNOSUS GG CAPSULE PO SCH (08:30)
[2022-03-02 08:31] LABS: BASOPHILS % (AUTO) 0.4 %; EOSINOPHILS # (AUTO) 0.3 10^3/uL (0.0-0.7); EOSINOPHILS % (AUTO) 2.8 %; HCT - HEMATOCRIT 31.3 % (37.0-47.0); HGB - HEMOGLOBIN 9.4 g/dL (12.0-16.0); LYMPHOCYTES # (AUTO) 2.2 10^3/uL (1.5-3.5); LYMPHOCYTES % (AUTO) 24.7 %; MEAN CORPUSCULAR HEMOGLOBIN 26.7 pg (27.0-31.0); MEAN CORPUSCULAR VOLUME 88.9 fL (81.0-99.0); MEAN PLATELET VOLUME 9.8 fL (7.9-10.8); MONOCYTES # (AUTO) 0.7 10^3/uL (0.0-1.0); MONOCYTES % (AUTO) 8.3 %; NEUTROPHILS # (AUTO) 5.6 10^3/uL (1.5-6.6); NEUTROPHILS % (AUTO) 63.2 %; PLT - PLATELET COUNT 283 10^3/uL (130-450); RED BLOOD COUNT 3.52 10^6/uL (4.20-5.40); RED CELL DISTRIBUTION WIDTH 19.6 % (12.0-15.0); WHITE BLOOD COUNT 8.9 x10^3/uL (4.8-10.8)
[2022-03-02 08:33] LABS: CALCIUM, IONIZED 1.09 mmol/L (1.15-1.33); VBG PH 7.465 (7.31-7.41)
[2022-03-02] MEDS: SPIRONOLACTONE 25 MG TABLET PO SCH (08:34)
[2022-03-02] MEDS: METOPROLOL SUCCINATE 50 MG TABLET PO SCH ×2 (08:42→20:42)
[2022-03-02] MEDS: polyethylene glycoL 3350 17 GM PACKET PO SCH (08:42)
[2022-03-02] MEDS: SODIUM CHLORIDE FLUSH 0.9% 10 ML SYRINGE IVP SCH ×2 (08:43→19:01)
[2022-03-02] MEDS ORDERED: FUROSEMIDE 40 MG TABLET PO SCH (09:00)
--- NOTE | 2022-03-02 09:17 | XRAY Report ---
PROCEDURE: Chest 1 View X-Ray INDICATIONS: Follow up hypoxia. CHF. TECHNIQUE: One view of the chest was acquired. COMPARISON: Chest x-ray 02/24/2022 FINDINGS: Surgical changes and devices: Pacemaker Lungs and pleura: There is persistent appearance of mild bilateral effusions, left greater than right although appearing improved on the right and similar on the left. Mediastinum: Extensive calcifications overlying the mediastinum as well as portions of the lungs are again noted. Facet of prior granulomatous exposure. Heart size is enlarged. Bones and chest wall: No suspicious bony lesions. Overlying soft tissues appear unremarkable. IMPRESSION: Overall appearance of effusions and edema appearing slightly improved as above. Reviewed by: Maliha Lee MD on 03/02/2022 9:15 AM PDT Approved by: Maliha Lee MD on 03/02/2022 9:15 AM PDT Station ID: [id number]
[2022-03-02] MEDS: CALCIUM CARBONATE CHEW 500 MG TABLET PO SCH ×2 (11:06→14:44)
[2022-03-02] MEDS: ZINC OXIDE 20% OINT 30 GM TUBE TOP PRN ×3 (11:12→20:41)
[2022-03-02] MEDS: MULTIVITAMIN W/MINERALS TABLET PO SCH (12:14)
--- NOTE | 2022-03-02 15:15 | PROVIDER PROGRESS NOTE ---
Subjective - Prog Note Date Prog Note Date: 03/02/22 - Subjective Subjective: She reports feeling tired but denies any chest pain or dyspnea. Feels better since admission. She has no pain over the left chest wall but does complain of itching at the site of the hematoma. Current Medications - Current Medications Current Medications: Active Medications Acetaminophen (Acetaminophen 325 Mg Tablet) 650 mg PO Q4HR PRN PRN Reason: Pain 1 to 4, or Fever Last Admin: 02/28/22 08:00 Dose: 650 mg Albuterol/Ipratropium (Ipratropium/Albuterol 3 Ml Neb) 3 ml INH Q4HR PRN PRN Reason: Wheezing Last Admin: 03/01/22 12:00 Dose: 3 ml Aspirin (Aspirin Chew 81 Mg Tablet) 81 mg PO DAILY [facility] Last Admin: 03/02/22 08:29 Dose: 81 mg Atorvastatin Calcium (Atorvastatin 10 Mg Tablet) 20 mg PO QPM [facility] Last Admin: 03/01/22 20:50 Dose: 20 mg Budesonide (Budesonide 0.5 Mg/2 Ml Neb) 0.5 mg INH RTBID [facility] Last Admin: 03/02/22 07:12 Dose: 0.5 mg Digoxin (Digoxin 125 Mcg Tablet) 125 mcg PO DAILY [facility] Last Admin: 03/02/22 08:30 Dose: 125 mcg Formoterol Fumarate (Formoterol Fumarate Neb 20 Mcg/2 Ml) 20 mcg INH RTBID [facility] Last Admin: 03/02/22 07:12 Dose: 20 mcg Furosemide (Furosemide 40 Mg Tablet) 40 mg PO DAILY [facility] Last Admin: 03/02/22 08:30 Dose: 40 mg Insulin Aspart (Insulin Aspart 300 Unit/3 Ml Pen) 3 - 11 unit SUBQ 0800,1200,1700,2100 [facility]; Protocol Last Admin: 03/02/22 12:14 Dose: Not Given Lactobacillus Rhamnosus (Lactobacillus Rhamnosus Gg Capsule) 1 cap PO DAILY [facility] Last Admin: 03/02/22 08:30 Dose: 1 cap Levothyroxine Sodium (Levothyroxine 125 Mcg Tablet) 125 mcg PO QDAC [facility] Last Admin: 03/02/22 06:29 Dose: 125 mcg Lisinopril (Lisinopril 20 Mg Tablet) 10 mg PO DAILY [facility] Last Admin: 03/02/22 08:30 Dose: 10 mg Metoprolol Succinate (Metoprolol Succinate 50 Mg Tablet) 50 mg PO BID [facility] Last Admin: 03/02/22 08:42 Dose: 50 mg Multi-Ingredient Ointment (Zinc Oxide 20% Oint 30 Gm Tube) 1 applic TOP PRN PRN PRN Reason: Skin Care Last Admin: 03/02/22 11:12 Dose: 1 applic Multivitamins/Minerals (Multivitamin W/Minerals Tablet) 1 tab PO QDLUNCH [facility] Last Admin: 03/02/22 12:14 Dose: 1 tab Ondansetron HCl (Ondansetron 4 Mg/2 Ml Vial) 4 mg IVP Q6HR PRN PRN Reason: Nausea / Vomiting Oxycodone HCl (Oxycodone 5 Mg Tablet) 5 mg PO Q4HR PRN PRN Reason: Pain 5 to 7 Last Admin: 02/24/22 21:57 Dose: 5 mg Pantoprazole Sodium (Pantoprazole 40 Mg Tablet) 40 mg PO QDAC [facility] Last Admin: 03/02/22 06:28 Dose: 40 mg Polyethylene Glycol (Polyethylene Glycol 3350 17 Gm Packet) 17 gm PO DAILY [facility] Last Admin: 03/02/22 08:42 Dose: 17 gm Psyllium Hydrophilic Mucilloid (Psyllium Packet) 1 packet PO DAILY PRN PRN Reason: Constipation Sodium Chloride (Sodium Chloride Flush 0.9% 10 Ml Syringe) 10 ml IVP PRN PRN PRN Reason: NEEDED PER PROVIDER ORDERS Last Admin: 03/01/22 06:36 Dose: 10 ml Sodium Chloride (Sodium Chloride Flush 0.9% 10 Ml Syringe) 10 ml IVP 0100,0900,1700 [facility] Last Admin: 03/02/22 08:43 Dose: 10 ml Spironolactone (Spironolactone 25 Mg Tablet) 25 mg PO DAILY [facility] Last Admin: 03/02/22 08:34 Dose: 25 mg Aspirin [[place] Aspirin] 81 mg PO DAILY 02/22/22 Digoxin [Lanoxin] 125 mcg PO DAILY 02/22/22 Dulaglutide [Trulicity] 0.75 mg SUBQ WE 02/22/22 Hydralazine HCl 50 mg PO BID 02/22/22 Levothyroxine [Synthroid] 125 mcg PO QDAC 02/22/22 Lisinopril [Zestril] 40 mg PO BID 02/22/22 Lovastatin 40 mg PO QPM 02/22/22 Metoprolol Succinate [Toprol Xl] 50 mg PO BID 02/22/22 Pantoprazole [Protonix] 40 mg PO DAILY 02/22/22 diltiaZEM [Cardizem] 60 mg PO DAILY 02/22/22 Albuterol 2.5 mg INH Q4H PRN 02/26/22 Objective - Vital Signs/Intake & Output Reviewed Vital Signs: Yes Vital Signs: Vital Signs x48h Temp Pulse Pulse Resp BP Pulse Ox 03/02/22 13:00 83 16 116/62 97 03/02/22 12:16 36.6 C 66 23 112/63 96 03/02/22 10:00 78 18 102/58 L 98 03/02/22 09:45 18 74 L 03/02/22 09:38 95 03/02/22 08:05 37 C 85 19 124/81 H 100 03/02/22 07:39 36.5 C 76 20 113/48 L 96 03/02/22 07:13 74 21 Intake & Output: Intake & Output 02/27/22 02/28/22 03/01/22 03/02/22 23:59 23:59 23:59 23:59 Intake Total 531 323 4928 620 Output Total 2245 1212 1145 685 Balance -1325 -512 55 -65 - Objective General Appearance: positive: Other (She little bit lethargic at times but will wake up and answer questions appropriately. Appears fatigued.) Eyes Bilateral: positive: Conjunctivae nml ENT: positive: Other (Nasal cannula in place.) Neck: positive: Nml inspection Respiratory: positive: No respiratory distress. negative: Wheezes, Rales Cardiovascular: positive: Regular rate & rhythm, Other (Left chest wall hematoma and eccymosis noted. Pacemaker in place over the left chest wall.). negative: Tachycardia Abdomen: positive: Non-tender, No distention. negative: Tenderness Skin: positive: Warm, Dry Extremities: positive: Pedal edema (Traced edema.) Neurologic/Psychiatric: positive: Motor nml. negative: Disoriented to person, Disoriented to place, Disoriented to time - Lab Results Fish Bones: 03/02/22 08:26 03/02/22 04:19 Other Labs: Lab Results x24hrs 03/02/22 03/02/22 03/02/22 Range/Units 11:47 10:19 08:26 WBC (4.8-10.8) x10^3/uL RBC (4.20-5.40) 10^6/uL Hgb (12.0-16.0) g/dL Hct (37.0-47.0) % MCV (81.0-99.0) fL MCH (27.0-31.0) pg MCHC (32.0-36.0) g/dL RDW (12.0-15.0) % Plt Count (130-450) 10^3/uL MPV (7.9-10.8) fL Neut # (Auto) (1.5-6.6) 10^3/uL Lymph # (Auto) (1.5-3.5) 10^3/uL [place] # (Auto) (0.0-1.0) 10^3/uL Eos # (Auto) (0.0-0.7) 10^3/uL Baso # (Auto) (0.0-0.1) 10^3/uL Absolute Nucleated RBC x10^3/uL Nucleated RBC % /100WBC VBG pH (7.31-7.41) Ionized Calcium (1.15-1.33) mmol/L Sodium (135-145) mmol/L Potassium (3.5-5.0) mmol/L Chloride (101-111) mmol/L Carbon Dioxide (21-32) mmol/L Anion Gap (6-13) BUN (6-20) mg/dL Creatinine (0.4-1.0) mg/dL Estimated GFR (MDRD) (>89) Glucose (70-100) mg/dL POC Whole Bld Glucose 112 H (70 - 100) mg/dL Calcium (8.5-10.3) mg/dL Phosphorus (2.5-4.6) mg/dL Magnesium (1.7-2.8) mg/dL Troponin I High Sens 776.7 H* 869.7 H* (2.3-14.8) ng/L 03/02/22 03/02/22 03/02/22 Range/Units 08:26 08:26 07:55 WBC 8.9 (4.8-10.8) x10^3/uL RBC 3.52 L (4.20-5.40) 10^6/uL Hgb 9.4 L (12.0-16.0) g/dL Hct 31.3 L (37.0-47.0) % MCV 88.9 (81.0-99.0) fL MCH 26.7 L (27.0-31.0) pg MCHC 30.0 L (32.0-36.0) g/dL RDW 19.6 H (12.0-15.0) % Plt Count 283 (130-450) 10^3/uL MPV 9.8 (7.9-10.8) fL Neut # (Auto) 5.6 (1.5-6.6) 10^3/uL Lymph # (Auto) 2.2 (1.5-3.5) 10^3/uL [place] # (Auto) 0.7 (0.0-1.0) 10^3/uL Eos # (Auto) 0.3 (0.0-0.7) 10^3/uL Baso # (Auto) 0.0 (0.0-0.1) 10^3/uL Absolute Nucleated RBC 0.00 x10^3/uL Nucleated RBC % 0.0 /100WBC VBG pH 7.465 H (7.31-7.41) Ionized Calcium 1.09 L (1.15-1.33) mmol/L Sodium (135-145) mmol/L Potassium (3.5-5.0) mmol/L Chloride (101-111) mmol/L Carbon Dioxide (21-32) mmol/L Anion Gap (6-13) BUN (6-20) mg/dL Creatinine (0.4-1.0) mg/dL Estimated GFR (MDRD) (>89) Glucose (70-100) mg/dL POC Whole Bld Glucose 168 H (70 - 100) mg/dL Calcium (8.5-10.3) mg/dL Phosphorus (2.5-4.6) mg/dL Magnesium (1.7-2.8) mg/dL Troponin I High Sens (2.3-14.8) ng/L 03/02/22 03/01/22 03/01/22 Range/Units 04:19 20:41 16:48 WBC (4.8-10.8) x10^3/uL RBC (4.20-5.40) 10^6/uL Hgb (12.0-16.0) g/dL Hct (37.0-47.0) % MCV (81.0-99.0) fL MCH (27.0-31.0) pg MCHC (32.0-36.0) g/dL RDW (12.0-15.0) % Plt Count (130-450) 10^3/uL MPV (7.9-10.8) fL Neut # (Auto) (1.5-6.6) 10^3/uL Lymph # (Auto) (1.5-3.5) 10^3/uL [place] # (Auto) (0.0-1.0) 10^3/uL Eos # (Auto) (0.0-0.7) 10^3/uL Baso # (Auto) (0.0-0.1) 10^3/uL Absolute Nucleated RBC x10^3/uL Nucleated RBC % /100WBC VBG pH (7.31-7.41) Ionized Calcium (1.15-1.33) mmol/L Sodium 138 (135-145) mmol/L Potassium 4.4 (3.5-5.0) mmol/L Chloride 96 L (101-111) mmol/L Carbon Dioxide 35 H (21-32) mmol/L Anion Gap 7.0 (6-13) BUN 28 H (6-20) mg/dL Creatinine 1.5 H (0.4-1.0) mg/dL Estimated GFR (MDRD) 41 L (>89) Glucose 119 H (70-100) mg/dL POC Whole Bld Glucose 216 H 228 H (70 - 100) mg/dL Calcium 8.4 L (8.5-10.3) mg/dL Phosphorus 2.6 (2.5-4.6) mg/dL Magnesium 1.8 (1.7-2.8) mg/dL Troponin I High Sens (2.3-14.8) ng/L Assessment/Plan - Problem List (1) Acute and chronic respiratory failure with hypoxia Impression: This is now resolved and she is back down to her baseline 2 L of oxygen via nasal cannula. This was secondary to heart failure. X-ray today shows improvement in her pulmonary edema. We have not switched her to oral diuretics. We have also looked into obtaining a noninvasive home ventilator to treat her chronic respiratory failure. (2) Acute exacerbation of CHF (congestive heart failure) Impression: This is the cause of her respiratory failure. Echocardiogram revealed moderate global hypokinesis with severe apical hypokinesis and an ejection fraction of around 25%. There is also evidence of moderate tricuspid regurgitation and a small loculated posterior pericardial effusion. Her prior echocardiogram revealed a preserved ejection fraction. We have switched her to oral Lasix and I have added losartan and spironolactone. I have a phone call out to cardiology today to discuss the potential need for further work-up given the new heart failure reduced ejection fraction, elevated troponin and history of coronary artery disease. Qualifiers: Heart failure type: systolic Qualified Code(s): I50.23 - Acute on chronic systolic (congestive) heart failure (3) History of coronary artery disease Impression: She is known history of coronary artery disease with stenting in the LAD back in 2017. We did check a troponin today given it had been slowly increasing since admission and had had not been checked to ensure it was trending down. Today it is greater than 800. I repeated an EKG which appeared unchanged compared to admission. I have a phone call out to cardiology to discuss this as given her new heart failure, they may consider an angiogram. This may need to be deferred for the time being given her left chest wall hematoma but ultimately I am awaiting for them to call me back to get their recommendations. In the interim we are continuing her home aspirin, statin. We are not using anticoagulation given the left chest wall hematoma. (4) Hematoma of left breast Impression: This was confirmed by ultrasound. It is stable and her hemoglobin has been stable since admission. (5) History of atrial flutter Impression: She remains rate controlled on the metoprolol. Continue digoxin. No anticoag ulation at this time given the left chest wall hematoma. She has a pacemaker in place due to history of tachybradycardia syndrome. (6) History of sarcoidosis Impression: Stable. She is not currently receiving therapy for this. (7) Hypertension Impression: Her blood pressure has been stable on the current regimen of antihypertensives. (8) Pericardial effusion Impression: Echocardiogram revealed a small loculated posterior pericardial effusion. (9) Type 2 diabetes mellitus, without long-term current use of insulin Impression: Her blood glucose has been stable. She is on closely at home. Her A1c was just less than 8% which is at goal given her comorbidities. We will continue with sliding scale and carb controlled diet. Qualifiers: Diabetes mellitus complication status: without complication Qualified Code(s): E11.9 - Type 2 diabetes mellitus without complications (10) Anemia Impression: Suspect this is related to the left chest wall hematoma as well as a component of iron deficiency given the iron studies. Her hemoglobin has been stable and is actually increasing. We will start her on oral iron as well. Qualifiers: Anemia type: unspecified type Qualified Code(s): D64.9 - Anemia, unspecified
[2022-03-02] MEDS: ACETAMINOPHEN 325 MG TABLET PO PRN (19:00)
[2022-03-02 20:15] VITALS: BP 123/56
[2022-03-02] MEDS: ATORVASTATIN 10 MG TABLET PO SCH (20:41)
--- NOTE | 2022-03-02 21:23 | DISCHARGE SUMMARY ---
Discharge Summary Admit Date: 02/23/22 Discharge Date: 03/02/22 Discharging Provider: Ivelisse Marino MD Primary Care Provider: Dr. Alicea, Cardiology, Code Status: Attempt Resuscitation Condition at Discharge: Serious Discharge Disposition: 02 Transfer Acute Care [facility]osp [facility] - DIAGNOSES Discharge Diagnoses with Status of Each Condition: 1. Acute and chronic respiratory failure with hypoxia 2. Acute exacerbation of systolic congestive heart failure 3. NSTEMI 4. History of coronary artery disease with stent to LAD 2017 5. Hematoma left breast 6. Sick sinus syndrome, status post pacer 7. History of sarcoidosis 8. Uncontrolled hypertension with hypertensive urgency 9. Pericardial effusion 10. Type 2 diabetes mellitus, without long-term use of insulin, controlled 11. Iron deficiency anemia 12. UTI with E coli 13. CKD Stage III - HPI History of Present Illness: The patient was brought in by EMS after family called due to concerns regarding lethargy and sleepiness. She had fallen on a kitchen counter Tuesday while r eaching up for something high. She had some bruising on her chest and her back. She has gotten sleepier, not wanting to eat, and today she was so lethargic she did not want to get up out of bed. She was complaining of dizziness. She is on chronic oxygen at home at 2 L/min. Ambulance was called and found her room air sats to be 89%. She was placed on her oxygen and was 96%. But when she got to the emergency room she was on 4 L nasal cannula. She was also actively vomiting yellow bilious fluid. Blood pressure was 189/89. Room air sat was 88%. Respirations 12. Heart rate 79. Temperature 36.9.In the emergency room she was treated with Lasix, hydralazine, lisinopril 40 mg p.o., and given some of her home meds which included lisinopril, diltiazem and digoxin. The emergency room provider felt that the patient was in congestive heart failure and she was given 40 mg of Lasix. Continued on 4 L of oxygen. She put out 500 cc of urine. With that they checked her on 2 L of oxygen and found her to be 86%. As such they put her back up to 4 L. I was asked to admit the patient for congestive heart failure. After she left the emergency room and came to the floor the patient was frankly obtunded, unresponsive. She had received a half a milligram of Ativan in the ER for "a little bit of anxiety". I had to put the patient immediately on BiPAP, and give her an inch of Nitropaste, and 10 mg of hydralazine for systolic of 210. I then spent 30 minutes in direct patient critical care at the bedside Have reached out to her metal spraying machine operator. She used to live in the [place] area a nd only moved to [facility] in July 2021. In June 2021 she was hospitalized at [facility]. Her metal spraying machine operator is Dr. Alicea at phone number [phone]. Her daughter states that she was hospitalized there because she had water on her lungs that needed to be removed with Lasix. Since moving here, the daughter states that the patient was probably compliant with medications but she cannot be sure. Mom is been going downhill for about a year or two. Her 2 years ago and she couldn't live alone so a daughter moved in with her to look out for her. About 1 year ago, one of her daughters had to start helping her taking a bath because her legs were too weak to lift up and bathe herself. Other than needing help to get bathe, mom was able to dress herself and feed herself. She has not been driving for several years. She relies on her family to take her places. Since moving to [place] from [place], she has become basically homebound. It is too difficult to get her up and down stairs so she never leaves the house/apartment. As far as the daughter knows, mom is taking her medications as instructed.There may been some dietary indiscretion. The history of why she fell is vague. History - Past Medical History Cardiovascular: reports: Congestive heart failure, Atrial fibrillation (with a pacer) Respiratory: reports: Asthma Neuro: reports: None Endocrine/Autoimmune: reports: Type 2 diabetes, HyPOthyroidism [employer]EL [employer]IC: reports: Other () : reports: None HEENT: reports: None Psych: reports: Anxiety Musculoskeletal: reports: Osteoarthritis MRSA Hx?: No - Past Surgical History Cardiovascular: reports: Pacemaker - CONSULTS | PROCEDURES Procedures: 1. Ribs with chest x-ray. Cardiomegaly with suggested pulmonary edema. Extensive mediastinal calcifications. No mention of rib fractures. 2. Head CT with no acute intracranial abnormality. Mild chronic white matter small vessel ischemic changes. 3. Breast ultrasound with large left oval fluid collection in the left breast consistent with hematoma 4. Follow-up chest x-ray 2 days after admission shows cardiomegaly and prominent pulmonary vasculature and small bilateral pleural effusions most likely secondary to congestive heart failure. A third chest x-ray is done March 02 showing overall appearance of effusions and edema improved from February 24. - HOSPITAL COURSE Hospital Course: We placed her in the ICU and initially focused on her respiratory failure by p utting her on BiPAP. We found out from the daughter that night that mom uses a CPAP mask at home so most likely has obstructive sleep apnea as part of her problem. Her systolic was also as high as 220. She responded to multiple medications and diuretics to get her blood pressure down. Initial troponins were elevated at 22, 32, 45. But not felt to be clinically significant in the face of respiratory failure, and an elevated blood pressure. I was able to speak briefly with her metal spraying machine operator from [place]. He first met her in a preoperative setting where she was in a flutter in PACU after a knee surgery. He was able to converted to sinus rhythm but then she developed tachybradycardia syndrome and ended up with a pacemaker in May 2021. At that point in time her ejection fraction was normal. He stated that he only had her on diltiazem and he does not understand how she presented on digoxin, diltiazem and metoprolol to our hospital. We were also able to review records from June 26, 2021 where she was admitted to [facility] in [facility]. She presented as hemoptysis. She had pulmonary edema and small bilateral pleural effusions. Hypoxic to 87% on room air requiring 2 L nasal cannula. In review of her records she had a pericardial window for pericardial effusion in the past due to sarcoidosis. With that hospitalization she was diuresed, treated for congestive heart failure. 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 LV systolic function was hyperdynamic. Ejection fraction 80%. Mild to moderate concentric left ventricular hypertrophy. She had normal right ventricular size, mildly enlarged left atrium, no significant valvular heart disease and mild pulmonary hypertension. We found her to have a significant hematoma of the left breast. Although the history was that of falling forward onto her chest and hitting a counter, she also had bruising across her back. The left breast ultrasound showed her to have a hematoma that was 11.2 x 11 x 5.7 cm. With the hematoma is anemia. It is unclear if her anemia is of anemia of chronic disease or a new anemia. In looking at the history and physical from June 2021 for her admission for hemoptysis, there is no mention of her CBC. During her stay hemoglobin was at 8.4 and by discharge was 9.4. Iron level was 39 and normal on February 22. TSH was normal at 1.23. B12 was normal at 420. Folate was normal at 10.69. The patient was slowly stabilized. Remains on BiPAP at night and off BiPAP during the day. Medications were deescalated and she was able to have her blood pressure and congestive heart failure controlled with spironolactone, Toprol-XL, Zestril, Lasix, Lanoxin, and a bedside echocardiogram was done. We do not have an echocardiogram tech as of mid January. A hospitalist did a bedside echocardiogram that showed her to have a distinctly new result. She has moderate to severe left atrial and right atrial enlargement. Massive right ventricular enlargement with poor RV function. A pacemaker is seen in the right heart. LV size is normal with moderate global hypokinesis but severe apical hypokinesis. Left ventricular ejection fraction is estimated at 25%. Brief Doppler exam was done which showed moderate tricuspid regurgitation. She also had a small loculated posterior pericardial effusion. Overall the patient has improved with mentation. She still remains fatigued, mildly short of breath but is denying chest pain. Repeat troponins were done today to follow-up on the troponins from February 23 and initial troponin was 869.7. Second troponin was 776.7. The hospitalist was reluctant to anticoagulate her formally because of the large left breast hematoma. She is on aspirin and a statin.Unclear as to why repeat EKG was not ordered.Admission EKG has a paced rhythm. We have reached out to [facility] cardiology on-call. Dr. Fine was able to speak to us but took several hours to call us back due to his being in the Manager Appointment. He called this late in the evening and reviewed the case with this and felt the patient should be transferred for coronary angiogram. I then spoke to the hospitalist on-call, Dr. Stone who accepted the patient in transfer. Dr. Fine is asking the patient be n.p.o. after midnight. As I was getting her paperwork ready for transfer, the family asked to speak to me. Her granddaughter is sleeping in the room with her grandmother. Unfortunately the family was not notified of the rising troponins or our plan to transfer her to a higher level of care. They are understandably angry and exasperated and want to know where communication broke down. At care conference today, it was discussed with the patient will be [facility]. So to be told that she is being transferred for an NSTEMI and possible angiogram has left them less than satisfied with the process. In reviewing the chart for discharge, I find a urine culture positive for E. coli. This was from February 22. Resistant to Bactrim and nitrofurantoin but sensitive to ampicillin and quinolone. The patient did receive 1 dose of clindamycin but I am not finding where she received her antibiotics beyond that. As such I am recommending that she receive treatment for E. coli UTI when she arrives at her next facility. At discharge patient has a heart rate of 92. Respirations 18. She is an FiO2 of 30% for BiPAP when she goes to sleep. However she is able to be awake and be on 2 L and saturating to 96%. She is 5 feet 1 inches tall and weighs 96.5 kg. Her admission weight was 112.1 kg. She is a sleepy black female who looks older than stated age. She is oriented to person, place and why she is here. Her orientation has improved steadily over the last few days from the deep obtundation she presented with on admission. Neck does not have any JVD. She does have shotty adenopathy. Diminished breath sounds at the bases with no respiratory distress. Occasional fine crackles. She has a regular rate and rhythm. Systolic ejection murmur. The abdomen is obese, large pannus, hypoactive bowel sounds, with no tenderness. No organomegaly. Last bowel movement was today. Her leg edema has improved from admission. Greater than 30 minutes was spent coordinating discharge. - ALLERGIES Allergies/Adverse Reactions: Allergies Allergy/AdvReac Type Severity Reaction Status Date / Time Iodinated Contrast Media Allergy Intermediate Unknown Verified 02/26/22 07:26 - MEDICATIONS Home Medications: Ambulatory Orders Medication Instructions Recorded Confirmed Aspirin [Arthur Aspirin] 81 mg PO DAILY 02/22/22 02/22/22 Digoxin [Lanoxin] 125 mcg PO DAILY 02/22/22 02/22/22 Dulaglutide [Trulicity] 0.75 mg SUBQ WE 02/22/22 02/22/22 Hydralazine HCl 50 mg PO BID 02/22/22 02/22/22 Levothyroxine [Synthroid] 125 mcg PO QDAC 02/22/22 02/22/22 Lisinopril [Zestril] 40 mg PO BID 02/22/22 02/22/22 Lovastatin 40 mg PO QPM 02/22/22 02/22/22 Metoprolol Succinate [Toprol Xl] 50 mg PO BID 02/22/22 02/22/22 Pantoprazole [Protonix] 40 mg PO DAILY 02/22/22 02/22/22 diltiaZEM [Cardizem] 60 mg PO DAILY 02/22/22 02/22/22 Albuterol 2.5 mg INH Q4H PRN 02/26/22 02/26/22 - LABS Result Diagrams: 03/02/22 08:26 03/02/22 04:19
[2022-03-03] MEDS ORDERED: FERROUS SULFATE 325 MG TABLET PO SCH (12:00)
== END 2022-03-02 22:10 | disposition short-term general hospital (02) | DRG 280 ==
LOC: EDUNIT# → ED 10:52 → MS2 16:08 → MS3 16:48 → ICU 18:27 → OBSVTOIN 02-23 10:16
PROVIDERS: ADMIT Specialist; ATTEND Specialist
DX: I11.0 Hypertensive heart disease with heart failure (principal); I50.9 Heart failure, unspecified; I13.0 Hypertensive heart and chronic kidney disease with heart failure and stage 1 through stage 4 chronic kidney disease, or unspecified chronic kidney disease; I21.4 Non-ST elevation (NSTEMI) myocardial infarction; J96.01 Acute respiratory failure with hypoxia; J96.02 Acute respiratory failure with hypercapnia; I50.23 Acute on chronic systolic (congestive) heart failure; J96.22 Acute and chronic respiratory failure with hypercapnia; J96.21 Acute and chronic respiratory failure with hypoxia; G93.40 Encephalopathy, unspecified; I31.3 Pericardial effusion (noninflammatory); N39.0 Urinary tract infection, site not specified; E11.9 Type 2 diabetes mellitus without complications; I16.0 Hypertensive urgency; S20.02XA Contusion of left breast, initial encounter; S20.219A Contusion of unspecified front wall of thorax, initial encounter; W19.XXXA Unspecified fall, initial encounter; D64.9 Anemia, unspecified; I48.92 Unspecified atrial flutter; Y92.008 Other place in unspecified non-institutional (private) residence as the place of occurrence of the external cause; R11.2 Nausea with vomiting, unspecified; Z20.822 Contact with and (suspected) exposure to COVID-19; N18.30 Chronic kidney disease, stage 3 unspecified; E03.9 Hypothyroidism, unspecified; E11.22 Type 2 diabetes mellitus with diabetic chronic kidney disease; E66.01 Morbid (severe) obesity due to excess calories; I25.10 Atherosclerotic heart disease of native coronary artery without angina pectoris; I48.91 Unspecified atrial fibrillation; I49.5 Sick sinus syndrome; F41.9 Anxiety disorder, unspecified; D50.9 Iron deficiency anemia, unspecified; D86.9 Sarcoidosis, unspecified; J45.909 Unspecified asthma, uncomplicated; M19.90 Unspecified osteoarthritis, unspecified site; K21.9 Gastro-esophageal reflux disease without esophagitis; G47.33 Obstructive sleep apnea (adult) (pediatric); B96.20 Unspecified Escherichia coli [E. coli] as the cause of diseases classified elsewhere; Z79.82 Long term (current) use of aspirin; Z79.890 Hormone replacement therapy; Z79.899 Other long term (current) drug therapy; Z80.9 Family history of malignant neoplasm, unspecified; Z81.8 Family history of other mental and behavioral disorders; Z87.891 Personal history of nicotine dependence; Z95.0 Presence of cardiac pacemaker; Z95.5 Presence of coronary angioplasty implant and graft; Z99.81 Dependence on supplemental oxygen
CPT/HCPCS: 36415; 36600; 51702; 70450; 71045; 71111; 76642; 80048; 80053; 80162; 80306; 81001; 82040; 82140; 82330; 82607; 82728; 82746; 82803; 83036; 83540; 83605; 83615; 83690; 83735; 83880; 84100; 84132; 84443; 84466; 84484; 85025; 85027; 85045; 85610; 87086; 87150; 87181; 87493; 87631; 93005; 94640; 94660; 96372; 96374; 96375; 96376; 97162; 97530; 99284; 99285; A9270; J1650; J1815; J2060; J7626; 0202U; 81003

== ENCOUNTER 2022-03-02 22:01 | Outpatient (CLI) | payer MEDICARE | END 2022-03-02 22:02 | disposition short-term general hospital (02) | LOC: EMS 22:01 | PROVIDERS: ATTEND Specialist | DX: I21.4 Non-ST elevation (NSTEMI) myocardial infarction (principal) | CPT/HCPCS: A0425; A0428 ==